=== PATIENT | male | born 1945 | race Caucasian/White ===

== ENCOUNTER 2018-10-12 09:15 | Emergency (ER) | payer MEDICARE, MEDICAID ==
[2018-10-12] MEDS ORDERED: Sodium Chloride 0.9% 1,000 ML IV ONE (09:46)
[2018-10-12] MEDS ORDERED: Sodium Chloride 0.9% 2.5 ML Syringe FLUSH PRN (09:46)
[2018-10-12] MEDS ORDERED: Sodium Chloride 0.9% 10 ML Syringe FLUSH PRN (09:46)
[2018-10-12] MEDS ORDERED: Ketorolac 30 MG/ML SDV IM ONE (09:50)
--- NOTE | 2018-10-12 09:55 | PCM.SN ---
- Free Text/Narrative Note: This is Dr. De Leon dictating addendum note as I am the supervising physician on this case. I agree with the resident's evaluation and my personal interaction with the patient he has no traumatic history and no bony tenderness on palpation but on my examination he seems to have more paraspinal tenderness with palpation bilaterally extending to the right trapezius area. There are no midline step-offs tenderness or defects of the midline spine on my personal evaluation. He is moving upper extremities without tingling numbness or inhibition and he says that he doesn't really have much neck or back pain and he did not take anything [id number] for the pain specifically. He says he has no weakness in his upper extremities and no other systemic complaints. We will proceed to do the cervical spine x-ray and treat his pain symptomatically. We will disposition appropriately pending those test results
--- NOTE | 2018-10-12 10:36 | EDM.PDOC ---
ED HPI GENERAL MEDICAL PROBLEM - General Chief Complaint: Neck Problem Stated Complaint: NECK PAIN Time Seen by Provider: 10/12/18 10:32 - History of Present Illness INITIAL COMMENTS - FREE TEXT/NARRATIVE: 72 y/o male with history of seizures. presenting today with his sister complaining of neck pain. Per family and patient, he started complaining of neck pain this morning. Rates pain 8/10. Worse on his cervical region. No trauma or falls. He lives by himself in town. Denies any headaches, cough, chest pain, dyspnea. No nausea, vomiting. Has not tried any over the counter pain meds. No neurological deficits. neck Pain Score (Numeric/FACES): 8 - Related Data Allergies Allergy/AdvReac Type Severity Reaction Status Date / Time No Known Allergies Allergy Verified 10/12/18 09:30 Home Meds: Home Meds Diclofenac Sodium [Voltaren] 75 mg PO WITHBREAKFAST #30 tab.cr 10/12/18 [Rx] Phenytoin Sodium Extended [Dilantin] 3 cap PO DAILY 10/12/18 [History] Past Medical History Neurological History: Reports: Seizure - Infectious Disease History Infectious Disease History: Reports: None Social & Family History - Family History Family Medical History: Noncontributory - Tobacco Use Smoking Status *Q: Never Smoker - Recreational Drug Use Recreational Drug Use: No ED ROS GENERAL - Review of Systems Review Of Systems: ROS reveals no pertinent complaints other than HPI. ED EXAM, UPPER BACK/NECK PAIN - Physical Exam Exam: See Below General Appearance: Alert, WD/WN, No Apparent Distress Head Exam: Atraumatic, Normocephalic. No: Scalp Lacerations, Scalp Swelling Neck Exam: Other (no swelling or erythema. Tender on cervical region and paraspinal muscles. Full range of motion.) Cardiovascular/Respiratory: Regular Rate, Rhythm, Normal Breath Sounds Course - Vital Signs Text/Narrative:: administered toradol 30 mg IM once. States he feels better after toradol. Cervical xray shows severe degenerative disease. Last Recorded V/S: Last Vital Signs Temp 36.6 C 10/12/18 09:32 Pulse 82 10/12/18 09:32 Resp 18 10/12/18 09:32 BP 110/74 10/12/18 09:32 Pulse Ox 94 L 10/12/18 09:32 - Orders/Labs/Meds Meds: Medications Discontinued Medications Generic Name Dose Route Start Last Admin Trade Name Mayra PRN Reason Stop Dose Admin Sodium Chloride 1,000 mls @ 999 mls/hr 10/12/18 09:46 10/12/18 09:51 Normal Saline IV 10/12/18 10:46 Not Given STAT ONE Ketorolac Tromethamine 30 mg 10/12/18 09:50 10/12/18 09:55 Toradol IM 10/12/18 09:51 30 mg ONETIME ONE Administration Sodium Chloride 10 ml 10/12/18 09:46 Saline Flush FLUSH ASDIRECTED PRN Keep Vein Open Sodium Chloride 2.5 ml 10/12/18 09:46 Saline Flush FLUSH ASDIRECTED PRN Keep Vein Open Departure - Departure Time of Disposition: 10:44 Disposition: Home, Self-Care 01 Clinical Impression: Osteoarthritis cervical spine - Discharge Information Prescriptions: Diclofenac Sodium [Voltaren] 75 mg PO WITHBREAKFAST #30 tab.cr Referrals: PCP,None [Primary Care Provider] - Forms: ED Department Discharge Additional Instructions: The following information is given to patients seen in the emergency department who are being discharged to home. This information is to outline your options for follow-up care. We provide all patients seen in our emergency department with a follow-up referral. The need for follow-up, as well as the timing and circumstances, are variable depending upon the specifics of your emergency department visit. If you don't have a primary care physician on staff, we will provide you with a referral. We always advise you to contact your personal physician following an emergency department visit to inform them of the circumstance of the visit and for follow-up with them and/or the need for any referrals to a consulting specialist. The emergency department will also refer you to a specialist when appropriate. This referral assures that you have the opportunity for followup care with a specialist. All of these measure are taken in an effort to provide you with optimal care, which includes your followup. Under all circumstances we always encourage you to contact your private physician who remains a resource for coordinating your care. When calling for followup care, please make the office aware that this follow-up is from your recent emergency room visit. If for any reason you are refused follow-up, please contact the [facility] emergency department at and ask to speak to the emergency department charge nurse. [facility] Primary care- Internal Medicine and Family [place] [id number] [place] [address] Please follow-up with your provider at [facility] or one of hours for reevaluation and further care next week. Use heat to areas of discomfort in the muscles and only apply ice to the bones. Expect pain to slowly improve over the next few days to one week. Use medications as prescribed to you for pain management. Return to ER as needed and as discussed please take all home medications as previously
--- NOTE | 2018-10-12 10:38 | CR ---
INDICATION: Pain TECHNIQUE: Cervical spine 3 view. COMPARISON: None FINDINGS: Bones: Alignment is normal. No fractures or significant bone lesions. Joints: There is diffuse severe disc space narrowing and spondylosis with small anterior endplate osteophytes. Mild spondylosis is throughout the facet joints. Soft tissues: Unremarkable. IMPRESSION: No acute abnormality. There is severe multilevel degenerative disc spondylosis. Dictated by Jorje Rubin MD @ Oct 12 2018 10:35AM Signed by Dr. Jorje Rubin @ Oct 12 2018 10:37AM
== END 2018-10-12 11:14 | disposition home or self-care (01) ==
LOC: EDBD 09:15 → MERGE 09:15 → MW.ED 09:15
DX: M47.812 Spondylosis without myelopathy or radiculopathy, cervical region (principal)
CPT/HCPCS: 72040; 96372; 99283; J1885

== ENCOUNTER 2020-09-21 19:58 | Emergency (ER) | payer MEDICARE, MEDICAID ==
[2020-09-21] MEDS ORDERED: Sodium Chloride 0.9% 10 ML Syringe FLUSH PRN (20:02)
[2020-09-21] MEDS ORDERED: Sodium Chloride 0.9% 2.5 ML Syringe FLUSH PRN (20:02)
[2020-09-21] MEDS ORDERED: LORazepam 2 MG/ML SDV IVPUSH ONE (20:03)
[2020-09-21] MEDS ORDERED: LORazepam 2 MG/ML SDV ONE (20:05)
--- NOTE | 2020-09-21 20:27 | CR ---
INDICATION: Fall, trauma. TECHNIQUE: X-ray chest, 1 view. COMPARISON: Chest x-ray 10/12/2010. FINDINGS: The heart is normal in size. The pulmonary vasculature is within normal limits. There is mild haziness of the left lung base which could represent a left pleural effusion or atelectasis or combination of both. The lungs are otherwise clear. Negative for pneumothorax. IMPRESSION: Haziness of the left lung base, may represent a pleural effusion, atelectasis or combination of both. Dictated by Stephanie Cao MD @ 09/21/2020 8:26:[address] Stephanie Cao @ Sep 21 2020 8:26PM
--- NOTE | 2020-09-21 20:27 | CR ---
Indication: Injury and pain Technique: Pelvis AP 1 views Comparison: None Findings: Bones: Alignment is normal. No fractures or bone lesions. Joint spaces: Unremarkable. Soft tissues: Unremarkable. Impression: No sign of acute injury. Dictated by Jorje Rubin MD @ 09/21/2020 8:26:[address] Jorje Rubin @ Sep 21 2020 8:26PM
--- NOTE | 2020-09-21 20:30 | EDM.PDOC ---
ED HPI GENERAL MEDICAL PROBLEM - General Chief Complaint: Trauma Stated Complaint: UNCONSCIOUS Time Seen by Provider: 09/21/20 20:02 - History of Present Illness INITIAL COMMENTS - FREE TEXT/NARRATIVE: 74-year-old male with history of seizure presents with altered mental status after a witnessed ground-level fall. Per EMS bystanders saw the patient suddenly point with one of his arms his eyes then rolled back in his head and he fell backwards striking his head. On EMS arrival patient was confused and felt to potentially be postictal. Patient will open eyes to stimuli but will not accurately answer questions on initial assessment. Trauma alert called by nursing for fall with altered mental status. Further history is unavailable at this time due to clinical condition. 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 Other Psychiatric History: pt. unable to communicate. Other Hematologic History: pt. unable to communicate. Other Immunologic History: pt. unable to communicate. - Infectious Disease History Infectious Disease History: Reports: None - Past Surgical History Other HEENT Surgeries/Procedures: pt. unable to communicate. Other Cardiovascular Surgeries/Procedures: pt. unable to communicate. Other Respiratory Surgeries/Procedures: pt. unable to communicate. Other GI Surgeries/Procedures: pt. unable to communicate. Other Male Surgeries/Procedures: pt. unable to communicate. Other Endocrine Surgeries/Procedures: pt. unable to communicate. Other Neurological Surgeries/Procedures: pt. unable to communicate. Other Musculoskeletal Surgeries/Procedures:: pt. unable to communicate. Other Oncologic Surgeries/Procedures: pt. unable to communicate. Social & Family History - Family History Family Medical History: No Pertinent Family History - Tobacco Use Tobacco Use Status *Q: Unknown Ever Used Tobacco Review of Systems - Review of Systems Review Of Systems: Unable To Obtain Reason Not Obtained: Clinical condition ED EXAM, GENERAL - Physical Exam Exam: See Below Free Text/Narrative:: General Appearance: No acute distress, appears comfortable Skin: No rash HEENT: Normocephalic, small amount of blood visible on the posterior scalp source unclear at this time, sclera anicteric, mucous membranes moist, pupils PERRLA bilaterally Neck: Remains in c-collar Chest and Lungs: Bilateral breath sounds, clear to auscultation Cardiovascular: Regular rate and rhythm intact distal perfusion Abdomen: Soft, non-tender Back: No midline tenderness step-off or deformity no ecchymosis noted Musculoskeletal: No edema or tenderness Neurologic: Patient awake but confused GCS is 14 will say occasional words but will not respond to questioning did spontaneously open eyes once from he moves all extremities well #1 Interpretation EKG Date: 09/21/20 Time: 20:30 EKG Interpretation Comments: Sinus rhythm rate of 83 normal axis and intervals minimal ST elevation in V2 and V3 may be somewhat related to baseline wander. There are no findings of acute ischemia no consistent ST elevations no ST depressions. QTC normal at 419 QRS duration normal at 92. Course - Vital Signs Last Recorded V/S: Last Vital Signs Temp 97.7 F 09/21/20 20:09 Pulse 88 09/21/20 20:09 Resp 14 09/21/20 20:09 BP 139/84 09/21/20 20:09 Pulse Ox 95 09/21/20 20:09 - Orders/Labs/Meds Orders: Active Orders 24 hr Category Date Time Status EKG 12 Lead [EKG Documentation Completion] [RC] STAT Care 09/21/20 20:00 Active Head wo Cont [CT] Stat Exams 09/21/20 20:03 Taken Sodium Chloride 0.9% [Saline Flush] Med 09/21/20 20:02 Active 10 ml FLUSH ASDIRECTED PRN Sodium Chloride 0.9% [Saline Flush] Med 09/21/20 20:02 Active 2.5 ml FLUSH ASDIRECTED PRN Saline Lock Insert [OM.PC] Stat Oth 09/21/20 20:02 Ordered Medication Orders Sodium Chloride (Sodium Chloride 0.9% 10 Ml Syringe) 10 ml FLUSH ASDIRECTED PRN PRN Reason: Keep Vein Open Sodium Chloride (Sodium Chloride 0.9% 2.5 Ml Syringe) 2.5 ml FLUSH ASDIRECTED PRN PRN Reason: Keep Vein Open Labs: Laboratory Tests 09/21/20 09/21/20 Range/Units 20:04 20:04 WBC 8.85 (4.0-11.0) K/uL RBC 4.51 (4.50-5.90) M/uL Hgb 13.3 (13.0-17.0) g/dL Hct 39.8 (38.0-50.0) % MCV 88.2 (80.0-98.0) fL MCH 29.5 (27.0-32.0) pg MCHC 33.4 (31.0-37.0) g/dL RDW Std Deviation 44.6 (28.0-62.0) fl RDW Coeff of Raquel 14 (11.0-15.0) % Plt Count 188 (150-400) K/uL MPV 9.40 (7.40-12.00) fL Neut % (Auto) 59.6 (48.0-80.0) % Lymph % (Auto) 30.6 (16.0-40.0) % [place] % (Auto) 8.6 (0.0-15.0) % Eos % (Auto) 0.7 (0.0-7.0) % Baso % (Auto) 0.5 (0.0-1.5) % Neut # (Auto) 5.3 (1.4-5.7) K/uL Lymph # (Auto) 2.7 H (0.6-2.4) K/uL [place] # (Auto) 0.8 (0.0-0.8) K/uL Eos # (Auto) 0.1 (0.0-0.7) K/uL Baso # (Auto) 0.0 (0.0-0.1) K/uL Nucleated RBC % 0.0 /100WBC Nucleated RBCs # 0 K/uL Sodium 144 (136-148) mmol/L Potassium 3.0 L (3.5-5.1) mmol/L Chloride 107 (98-107) mmol/L Carbon Dioxide 28.3 (21.0-32.0) mmol/L BUN 8 (7.0-18.0) mg/dL Creatinine 0.7 L (0.8-1.3) mg/dL Est Cr Clr Drug Dosing TNP Estimated GFR (MDRD) > 60.0 ml/min Glucose 112 H (74-106) mg/dL Calcium 7.5 L (8.5-10.1) mg/dL Magnesium 1.8 (1.8-2.4) mg/dL Total Bilirubin 0.2 (0.2-1.0) mg/dL AST 14 L (15-37) IU/L ALT 14 (14-63) IU/L Alkaline Phosphatase 110 (46-116) U/L Troponin I < 0.050 (0.000-0.056) ng/mL Total Protein 6.7 (6.4-8.2) g/dL Albumin 3.0 L (3.4-5.0) g/dL Globulin 3.7 (2.6-4.0) g/dL Albumin/Globulin Ratio 0.8 L (0.9-1.6) Ethyl Alcohol < 3.0 mg/dL Meds: Medications Generic Name Dose Route Start Last Admin Trade Name Freq PRN Reason Stop Dose Admin Sodium Chloride 10 ml 09/21/20 20:02 Sodium Chloride 0.9% 10 Ml Syringe FLUSH ASDIRECTED PRN Keep Vein Open Sodium Chloride 2.5 ml 09/21/20 20:02 Sodium Chloride 0.9% 2.5 Ml Syringe FLUSH ASDIRECTED PRN Keep Vein Open Discontinued Medications Generic Name Dose Route Start Last Admin Trade Name Freq PRN Reason Stop Dose Admin Haloperidol Lactate 5 mg 09/21/20 20:41 09/21/20 20:43 Haloperidol Lactate 5 Mg/Ml Sdv IM 09/21/20 20:42 5 mg ONETIME ONE Administration Haloperidol Lactate Confirm 09/21/20 20:41 09/21/20 20:44 Haloperidol Lactate 5 Mg/Ml Sdv Administered 09/21/20 20:42 Not Given Dose 5 mg .ROUTE .STK-MED ONE Lorazepam 1 mg 09/21/20 20:03 09/21/20 20:42 Lorazepam 2 Mg/Ml Sdv IVPUSH 09/21/20 20:04 Not Given ONETIME ONE Lorazepam Confirm 09/21/20 20:05 09/21/20 20:15 Lorazepam 2 Mg/Ml Sdv Administered 09/21/20 20:06 2 mg Dose Administration 2 mg .ROUTE .STK-MED ONE Departure - Departure Time of Disposition: 21:18 Disposition: DC/Tfer to Acute Hospital 02 Condition: Good Clinical Impression: Subdural hematoma, Subarachnoid hemorrhage - Discharge Information *PRESCRIPTION DRUG MONITORING PROGRAM REVIEWED*: Not Applicable *COPY OF PRESCRIPTION DRUG MONITORING REPORT IN PATIENT [place]: Not Applicable Forms: ED Department Discharge Sepsis Event Note (ED) - Evaluation Sepsis Screening Result: No Definite Risk - Focused Exam Vital Signs: Vital Signs Temp Pulse Resp BP Pulse Ox 09/21/20 20:09 97.7 F 88 14 139/84 95 - My Orders Last 24 Hours: My Active Orders 09/21/20 20:00 EKG 12 Lead [EKG Documentation Completion] [RC] STAT 09/21/20 20:02 Sodium Chloride 0.9% [Saline Flush] 10 ml FLUSH ASDIRECTED PRN Sodium Chloride 0.9% [Saline Flush] 2.5 ml FLUSH ASDIRECTED PRN Saline Lock Insert [OM.PC] Stat 09/21/20 20:03 Head wo Cont [CT] Stat - Assessment/Plan Last 24 Hours: My Active Orders 09/21/20 20:00 EKG 12 Lead [EKG Documentation Completion] [RC] STAT 09/21/20 20:02 Sodium Chloride 0.9% [Saline Flush] 10 ml FLUSH ASDIRECTED PRN Sodium Chloride 0.9% [Saline Flush] 2.5 ml FLUSH ASDIRECTED PRN Saline Lock Insert [OM.PC] Stat 09/21/20 20:03 Head wo Cont [CT] Stat Assessment:: 74-year-old male presents with ground-level fall. From a traumatic standpoint immediate portable chest and pelvis x-ray were performed and reviewed by myself in the room they are without findings of acute traumatic injury. Patient will proceed to CT for CT imaging of the head and the C-spine. I believe you can clinically clear the spine nonbony abdomen pelvis and other extremities at this point. We will need to reassess the head wound when patient returns from CT. From a medical standpoint syncope is possible seizure is possible. Patient does have some confusion and psychomotor agitation and given the need for immediate imaging 1 mg of IV Ativan will be provided. CBC CMP EKG troponin magnesium have been ordered. Alcohol level as well. Final disposition pending at this time. Any intracranial bleeding should be seen on CT given how soon after the event the CT is being performed. 2041: EKG without acute ischemia QTC is 419. Patient remained significantly agitated and continually trying to get out of bed. Pt given 5mg haldol to allow for emergently needed CT images. Patient is already gotten a total of 2 mg of Ativan. Labs remain pending. 2107: Per verbal report from radiologists pt's CT brain shows an acute subdural hematoma over the left frontal lobe, 3 mm in size. 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 Pt also has a left posterior frontal sulci subarachnoid hemorrhage, pt also with small right posterior frontal SAH. There is no mass effect or midline shift. 2114: Pt discussed with Dr. Gunderson at [facility] and accepted for transfer to [facility]. ETA for [place] [facility] is 15 minutes. Patient is sleeping at this time but this transfer was emergent so we will transfer emergently rather than waiting for consent.
[2020-09-21 20:34] LABS: BLOOD UREA NITROGEN,BUN 8 mg/dL (7.0-18.0); CARBON DIOXIDE,CO2 28.3 mmol/L (21.0-32.0); CHLORIDE,CL 107 mmol/L (98-107); GLUCOSE RANDOM 112 mg/dL (74-106); SODIUM,NA 144 mmol/L (136-148)
[2020-09-21] MEDS ORDERED: Haloperidol Lactate 5 MG/ML SDV ONE (20:41)
[2020-09-21] MEDS ORDERED: Haloperidol Lactate 5 MG/ML SDV IM ONE (20:41)
--- NOTE | 2020-09-21 21:04 | CT ---
Indication: Altered mental status. Technique: CT of the cervical spine without IV contrast. Coronal and sagittal reconstructions. Comparison: None. Findings: No acute fracture or traumatic malalignment of the cervical spine. Degenerative height loss at C3-C6. Normal vertebral body alignment. Spondylotic changes of the cervical spine including hypertrophic spurring, facet arthropathy, and multilevel disc space narrowing. There are multiple small lucent lesions throughout the cervical spine which could be degenerative in nature but are indeterminate. No significant spinal canal stenosis. No prevertebral soft tissue swelling. Mild soft tissue swelling overlying the right occipital bone. Visualized intracranial contents are unremarkable. Opacification of a single right mastoid air cell. Bilateral thyroid nodules measuring up to 1.2 cm in the right thyroid lobe. Mild dependent atelectasis in the lung apices. Impression: 1. No acute fracture or traumatic malalignment of the cervical spine. 2. Spondylotic changes of the cervical spine. 3. Multiple small lucent lesions throughout the cervical spine could be degenerative in nature but are indeterminate. 4. Mild soft tissue swelling overlying the right occipital bone. 5. Bilateral thyroid nodules could be further evaluated with nonemergent thyroid ultrasound. Please note that all CT scans at this facility use dose modulation, iterative reconstruction, and/or weight-based dosing when appropriate to reduce radiation dose to as low as reasonably achievable. Dictated by Bindu Goddard MD @ 09/21/2020 9:03:[address] Bindu Goddard @ Sep 21 2020 9:03PM
--- NOTE | 2020-09-21 21:13 | CT ---
INDICATION: Altered mental status. COMPARISON: None. TECHNIQUE: CT of the head without IV contrast. Coronal and sagittal reconstructions are provided. FINDINGS: There is an acute hyperdense subdural hematoma overlying the left lateral frontal convexity measuring 3 mm in greatest radial diameter (series 203 image 28). There is also a low attenuation chronic subdural hematoma measuring 6 mm at the left vertex (series 203, image 46). There is acute hyperdense subarachnoid hemorrhage within left posterior frontal sulci (For example series 201, image 20). Additional possible small foci of subarachnoid hemorrhage within right frontoparietal sulci (image 24). No significant mass effect. No midline shift. No evidence of acute infarct. Mild generalized cerebral and cerebellar volume loss. Normal caliber ventricular system. Orbits and extraocular muscles are symmetric. The paranasal sinuses and mastoid air cells are clear. No acute fracture. Mild soft tissue swelling overlying the right occipital bone. IMPRESSION: : 1. Acute hyperdense subdural hematoma overlying the left lateral frontal convexity measuring 3 mm in thickness. 2. Low attenuation chronic subdural hematoma at the left vertex measuring 6 mm. 3. Acute hyperdense subarachnoid hemorrhage within left posterior frontal sulci and possibly small foci of subarachnoid hemorrhage within right frontoparietal sulci. 4. No significant mass effect or midline shift. 5. Mild soft tissue swelling overlying the right occipital bone. 6. Findings discussed with Santosh Bruno at 9:11pm on 09/21/2020. Please note that all CT scans at this facility use dose modulation, iterative reconstruction, and/or weight-based dosing when appropriate to reduce radiation dose to as low as reasonably achievable. Dictated by Bindu Goddard MD @ 09/21/2020 8:56:45 PM (Electronically Signed)
== END 2020-09-21 22:16 ==
LOC: EDBD 19:58 → MW.ED 19:58
DX: S06.5X9A Traumatic subdural hemorrhage with loss of consciousness of unspecified duration, initial encounter (principal); S06.6X9A Traumatic subarachnoid hemorrhage with loss of consciousness of unspecified duration, initial encounter; R56.9 Unspecified convulsions; Z79.899 Other long term (current) drug therapy; W18.30XA Fall on same level, unspecified, initial encounter
CPT/HCPCS: 36415; 70450; 71045; 72125; 72170; 80053; 80307; 83735; 84484; 85025; 93005; 96372; 96374; 99285; J1630; J2060; 93010; 99284

== ENCOUNTER 2020-12-12 09:52 | Inpatient (IN) | payer MEDICARE, MEDICAID ==
[2020-12-12] MEDS ORDERED: Sodium Chloride 0.9% 10 ML Syringe FLUSH PRN (13:29)
[2020-12-12] MEDS ORDERED: Sodium Chloride 0.9% 2.5 ML Syringe FLUSH PRN (13:29)
[2020-12-12] MEDS ORDERED: Sodium Chloride 0.9% 1,000 ML IV ONE ×2 (14:10→14:48)
[2020-12-12] MEDS ORDERED: Piperacillin/Tazobactam 3.375 GM in Sodium Chloride 0.9% 50 ML IV ONE (14:31)
[2020-12-12 14:53] LABS: CARBON DIOXIDE,CO2 27.6 mmol/L (21.0-32.0); POTASSIUM,K 3.8 mmol/L (3.5-5.1)
[2020-12-12] MEDS ORDERED: Acetaminophen 500 MG Tab PO ONE (15:38)
--- NOTE | 2020-12-12 15:41 | EDM.PDOC ---
ED HPI GENERAL MEDICAL PROBLEM - General Chief Complaint: Abdominal Pain Stated Complaint: FEVER Time Seen by Provider: 12/12/20 10:06 Source of Information: Reports: Patient, Family History Limitations: Reports: No Limitations - History of Present Illness INITIAL COMMENTS - FREE TEXT/NARRATIVE: HISTORY AND PHYSICAL: History of present illness: Patient is a 74-year-old male, with a known seizure disorder, who presents emergency room today with concern of fever, lower abdominal pain, and "sick of "an indwelling urinary catheter. According to family at bedside, when patient was flown out of here to [facility], he had an indwelling Rodriguez catheter placed. According to family member, this has been in place since his prior emergency room visit and has not been changed or adjusted. Patient and the family member state they do not know why he has the Rodriguez catheter and states that it has never been addressed or touched. Family at bedside states that starting today he began having a fever and complaining of abdominal pain and she felt he was more weak so brought him to the emergency room for further evaluation. Family member states that after his last hospitalization stay at [facility], he was in a long term for quite some time until he was able to transition back to home. Family member states that she has to go in and check on him daily and cook food for him as he is not fully able to care for himself but he does live at home alone. Patient denies any additional symptoms. Patient agrees to family member story. Patient/family member denies chest pain, shortness of breath, or cough. Denies headache, neck stiff ness, change in vision, syncope, or near syncope. Denies nausea, vomiting, diarrhea, constipation, or dysuria. Has not noted any blood in urine or stool. Patient has been eating and drinking appropriately. Review of systems: As per history of present illness and below otherwise all systems reviewed and negative. Past medical history: As per history of present illness and as reviewed below otherwise noncontributory. Surgical history: As per history of present illness and as reviewed below otherwise noncontributory. Social history: See social history for further information Family history: As per history of present illness and as reviewed below otherwise noncontributory. Physical exam: General: Patient is alert, oriented, and in no acute distress. Patient laying comfortably on exam table. Chronically ill-appearing. Patient febrile on exam of 100.7, otherwise vitally stable and reviewed by me. HEENT: Atraumatic, normocephalic, pupils equal and reactive bilaterally, negative for conjunctival pallor or scleral icterus, mucous membranes moist, TMs normal bilaterally, throat clear, neck supple, nontender, trachea midline. No drooling or trismus noted. No meningeal signs. No hot potato voice noted. Lungs: Clear to auscultation, breath sounds equal bilaterally, chest nontender. Heart: S1S2, regular rate and rhythm without overt murmur Abdomen: Soft, nondistended, moderate to severe lower abdominal tenderness on exam. Negative for masses or hepatosplenomegaly. Negative for costovertebral tenderness. Pelvis: Stable nontender. Genitourinary: Indwelling rodriguez catheter in place with brown/yellow thick urine in tubing and draining. Rectal: Deferred. Skin: Intact, warm, dry. No lesions or rashes noted. Extremities: Atraumatic, negative for cords or calf pain. Neurovascular unremarkable. Neuro: Awake, alert, oriented. Cranial nerves II through XII unremarkable. Cerebellum unremarkable. Motor and sensory unremarkable throughout. Exam nonfocal. Notes: Patient is a 74-year-old male, with a history of seizure disorder, who presents emergency room today with family member for concern of fever and abdominal pain x1 day. Patient has had 09/21/2020 according to family member and has not been changed. Upon arrival to the ED, patient is chronically ill-appearing, febrile on exam, with significant lower abdominal tenderness. Patient also noted to have an indwelling Rodriguez the catheter was draining a brown/yellow thick urine in tubing and draining with foul odor. Nursing staff removed indwelling Rodriguez catheter. Will obtain lab work, blood cultures, and lactate as well as obtain abdominal pelvic CT scan with fluid bolus and initiate IV antibiotics. CBC is remarkable for an elevated white blood cell count at 17.18, red blood cells slightly decreased at 4.47, otherwise mild derangements of CBC unremarkable. CMP shows mild hyponatremia at 134. New elevation of creatinine at 1.5 (in past was 0.7) and elevation of BUN at 39 (in past was 8). Urinalysis shows 4+ bacteria with too numerous to count white blood cells, 10-15 red blood cells, positive leukocyte Estrace, negative nitrite, 100 protein, trace ketones. Interpretation: acute urinary tract infection. Given fever and significant leukocytosis and source of infection, concern for sepsis. Sepsis focused exam post fluid bolus completion demonstrates capillary refill less than 2 seconds, radial pulses grossly intact bilaterally, dorsalis pedis and posterior tibial pulses grossly intact bilaterally, heart rate remains within normal limits at approximately 80 bpm, respiratory With remains within normal limits at 18, blood pressure 140s over 90s. Perfusion assessment intact. Covid negative. Abdominal pelvic CT scan shows moderate bilateral hydronephrosis and hydroureter without obstructing stones. Minimal ureteral thickening. Distended urinary bladder with wall thickening pericystic inflammatory change foci of air in the urinary bladder to be correlated with recent instrumentation. Marked heterogeneous enlargement of the prostate gland. Findings may represent bladder outlet obstruction and possible cystitis/urinary tract infection. Right middle lobe consolidation. Basilar patchy opacities could reflect atelectasis versus infiltrate. Patient was given an opportunity to urinate for himself but was unable to succ essfully do this. Due to urinary obstruction on CT scan, Rodriguez catheter was reinserted. However, nursing staff did have difficulties with getting the Rodrigeuz catheter placed. A three-way Rodriguez was finally successfully placed with urine flow noted. Patient does have periodic blood clotting that requires manual break up with fluid flushes, however, between flushes, it does drain easily and appropriately with light pink/yellow urine. I did call and speak to the hospitalist on-call, Dr. Luo, and thoroughly discussed patient's case. Will admit to inpatient to Dr. Luo. Voices understanding and is agreeable to plan of care. Denies any further questions or concerns at this time. Diagnostics: CBC, CMP, UA, blood cultures x2, lactate, abdominal pelvic CT scan with contrast, COVID-19 Therapeutics: Normal saline bolus x2, vancomycin IV, Zosyn, Tylenol, Ibuprofen Impression: Acute pyelonephritis Urinary outlet obstruction Community-acquired pneumonia, right middle lobe Sepsis Plan: Admit to inpatient to Dr. Luo Definitive disposition and diagnosis as appropriate pending reevaluation and review of above. - Related Data Allergies Allergy/AdvReac Type Severity Reaction Status Date / Time No Known Allergies Allergy Verified 12/12/20 13:22 Home Meds: Home Meds Phenytoin Sodium Extended [Dilantin] 100 mg PO DAILY 10/12/18 [History] Diclofenac Sodium [Voltaren] 0 mg PO WITHBREAKFAST 09/21/20 [History] cephALEXin [Cephalexin] 0 mg PO DAILY 09/21/20 [History] Past Medical History Neurological History: Reports: Seizure, Other (See Below) Other Neuro History: epilepsy medical alert necklace noted. Other Psychiatric History: pt. unable to communicate. Other Hematologic History: pt. unable to communicate. Other Immunologic History: pt. unable to communicate. - Infectious Disease History Infectious Disease History: Reports: None - Past Surgical History Other HEENT Surgeries/Procedures: pt. unable to communicate. Other Cardiovascular Surgeries/Procedures: pt. unable to communicate. Other Respiratory Surgeries/Procedures: pt. unable to communicate. Other GI Surgeries/Procedures: pt. unable to communicate. Other Male Surgeries/Procedures: pt. unable to communicate. Other Endocrine Surgeries/Procedures: pt. unable to communicate. Other Neurological Surgeries/Procedures: pt. unable to communicate. Other Musculoskeletal Surgeries/Procedures:: pt. unable to communicate. Other Oncologic Surgeries/Procedures: pt. unable to communicate. Social & Family History - Family History Family Medical History: No Pertinent Family History - Tobacco Use Tobacco Use Status *Q: Never Tobacco User - Recreational Drug Use Recreational Drug Use: No ED ROS GENERAL - Review of Systems Review Of Systems: Comprehensive ROS is negative, except as noted in HPI. ED EXAM, GENERAL - Physical Exam Exam: See Below (see dictation) Course - Vital Signs Last Recorded V/S: Last Vital Signs Temp 103.7 F H 12/12/20 20:28 Pulse 104 H 12/12/20 20:24 Resp 22 H 12/12/20 20:24 BP 115/67 12/12/20 20:24 Pulse Ox 90 L 12/12/20 20:24 - Orders/Labs/Meds Orders: Active Orders 24 hr Category Date Time Status Rodriguez Catheter Insertion [Insert Urinary Catheter] [OM. Care 12/12/20 17:45 Ordered PC] Q24H Urinary Catheter Assessment [RC] ASDIRECTED Care 12/12/20 17:39 Active CULTURE BLOOD [BC] Stat Lab 12/12/20 14:15 Received CULTURE BLOOD [BC] Stat Lab 12/12/20 14:31 Received CULTURE URINE [MREF] Stat Lab 12/12/20 13:50 Received Sodium Chloride 0.9% [Saline Flush] Med 12/12/20 13:29 Active 10 ml FLUSH ASDIRECTED PRN Sodium Chloride 0.9% [Saline Flush] Med 12/12/20 13:29 Active 2.5 ml FLUSH ASDIRECTED PRN Blood Culture x2 Reflex Set [OM.PC] Stat Ot 12/12/20 14:10 Ordered Saline Lock Insert [OM.PC] Stat Ot 12/12/20 13:29 Ordered Medication Orders Sodium Chloride (Sodium Chloride 0.9% 10 Ml Syringe) 10 ml FLUSH ASDIRECTED PRN PRN Reason: Keep Vein Open Last Admin: 12/12/20 14:30 Dose: 10 ml Documented by: LUIS CARLOS Sodium Chloride (Sodium Chloride 0.9% 2.5 Ml Syringe) 2.5 ml FLUSH ASDIRECTED PRN PRN Reason: Keep Vein Open Last Admin: 12/12/20 14:31 Dose: 2.5 ml Documented by: LUIS CARLOS Labs: Laboratory Tests 12/12/20 12/12/20 12/12/20 Range/Units 13:50 14:15 14:15 WBC 17.18 H (4.0-11.0) K/uL RBC 4.47 L (4.50-5.90) M/uL Hgb 13.2 (13.0-17.0) g/dL Hct 38.7 (38.0-50.0) % MCV 86.6 (80.0-98.0) fL MCH 29.5 (27.0-32.0) pg MCHC 34.1 (31.0-37.0) g/dL RDW Std Deviation 44.1 (28.0-62.0) fl RDW Coeff of Raquel 14 (11.0-15.0) % Plt Count 195 (150-400) K/uL MPV 9.40 (7.40-12.00) fL Neut % (Auto) 81.4 H (48.0-80.0) % Lymph % (Auto) 5.6 L (16.0-40.0) % Greene % (Auto) 12.7 (0.0-15.0) % Eos % (Auto) 0.1 (0.0-7.0) % Baso % (Auto) 0.2 (0.0-1.5) % Neut # (Auto) 14.0 H (1.4-5.7) K/uL Lymph # (Auto) 1.0 (0.6-2.4) K/uL Greene # (Auto) 2.2 H (0.0-0.8) K/uL Eos # (Auto) 0.0 (0.0-0.7) K/uL Baso # (Auto) 0.0 (0.0-0.1) K/uL Nucleated RBC % 0.0 /100WBC Nucleated RBCs # 0 K/uL Sodium 134 L (136-148) mmol/L Potassium 3.8 (3.5-5.1) mmol/L Chloride 98 (98-107) mmol/L Carbon Dioxide 27.6 (21.0-32.0) mmol/L BUN 39 H (7.0-18.0) mg/dL Creatinine 1.5 H (0.8-1.3) mg/dL Est Cr Clr Drug Dosing 39.17 mL/min Estimated GFR (MDRD) 45.5 ml/min Glucose 128 H (74-106) mg/dL Lactic Acid (0.4-2.0) mmol/L Calcium 8.2 L (8.5-10.1) mg/dL Total Bilirubin 0.6 (0.2-1.0) mg/dL AST 27 (15-37) IU/L ALT 18 (14-63) IU/L Alkaline Phosphatase 125 H (46-116) U/L Total Protein 7.5 (6.4-8.2) g/dL Albumin 2.8 L (3.4-5.0) g/dL Globulin 4.7 H (2.6-4.0) g/dL Albumin/Globulin Ratio 0.6 L (0.9-1.6) Lipase 215 (73-393) U/L Urine Color YELLOW Urine Appearance CLOUDY Urine pH 7.0 (5.0-8.0) Ur Specific [place] 1.020 (1.001-1.035) Urine Protein 100 H (NEGATIVE) mg/dL Urine Glucose (UA) NEGATIVE (NEGATIVE) mg/dL Urine Ketones TRACE H (NEGATIVE) mg/dL Urine Occult Blood LARGE H (NEGATIVE) Urine Nitrite NEGATIVE (NEGATIVE) Urine Bilirubin SMALL H (NEGATIVE) Urine Urobilinogen 1.0 (<2.0) EU/dL Ur Leukocyte Esterase LARGE H (NEGATIVE) Urine RBC 10-15 (0-2/HPF) Urine WBC TO NUMEROUS TO COUNT H (0-5/HPF) Ur Epithelial Cells RARE (NONE-FEW) Urine Bacteria 4+ H (NEGATIVE) SARS-CoV-2 RNA (ELEN) (NEGATIVE) 12/12/20 12/12/20 Range/Units 14:15 15:34 WBC (4.0-11.0) K/uL RBC (4.50-5.90) M/uL Hgb (13.0-17.0) g/dL Hct (38.0-50.0) % MCV (80.0-98.0) fL MCH (27.0-32.0) pg MCHC (31.0-37.0) g/dL RDW Std Deviation (28.0-62.0) fl RDW Coeff of Raquel (11.0-15.0) % Plt Count (150-400) K/uL MPV (7.40-12.00) fL Neut % (Auto) (48.0-80.0) % Lymph % (Auto) (16.0-40.0) % Greene % (Auto) (0.0-15.0) % Eos % (Auto) (0.0-7.0) % Baso % (Auto) (0.0-1.5) % Neut # (Auto) (1.4-5.7) K/uL Lymph # (Auto) (0.6-2.4) K/uL Greene # (Auto) (0.0-0.8) K/uL Eos # (Auto) (0.0-0.7) K/uL Baso # (Auto) (0.0-0.1) K/uL Nucleated RBC % /100WBC Nucleated RBCs # K/uL Sodium (136-148) mmol/L Potassium (3.5-5.1) mmol/L Chloride (98-107) mmol/L Carbon Dioxide (21.0-32.0) mmol/L BUN (7.0-18.0) mg/dL Creatinine (0.8-1.3) mg/dL Est Cr Clr Drug Dosing mL/min Estimated GFR (MDRD) ml/min Glucose (74-106) mg/dL Lactic Acid 1.2 (0.4-2.0) mmol/L Calcium (8.5-10.1) mg/dL Total Bilirubin (0.2-1.0) mg/dL AST (15-37) IU/L ALT (14-63) IU/L Alkaline Phosphatase (46-116) U/L Total Protein (6.4-8.2) g/dL Albumin (3.4-5.0) g/dL Globulin (2.6-4.0) g/dL Albumin/Globulin Ratio (0.9-1.6) Lipase (73-393) U/L Urine Color Urine Appearance Urine pH (5.0-8.0) Ur Specific [place] (1.001-1.035) Urine Protein (NEGATIVE) mg/dL Urine Glucose (UA) (NEGATIVE) mg/dL Urine Ketones (NEGATIVE) mg/dL Urine Occult Blood (NEGATIVE) Urine Nitrite (NEGATIVE) Urine Bilirubin (NEGATIVE) Urine Urobilinogen (<2.0) EU/dL Ur Leukocyte Esterase (NEGATIVE) Urine RBC (0-2/HPF) Urine WBC (0-5/HPF) Ur Epithelial Cells (NONE-FEW) Urine Bacteria (NEGATIVE) SARS-CoV-2 RNA (ELEN) NEGATIVE (NEGATIVE) Meds: Medications Generic Name Dose Route Start Last Admin Trade Name Freq PRN Reason Stop Dose Admin Sodium Chloride 10 ml 12/12/20 13:29 12/12/20 14:30 Sodium Chloride 0.9% 10 Ml Syringe FLUSH 10 ml ASDIRECTED PRN Administration Keep Vein Open Sodium Chloride 2.5 ml 12/12/20 13:29 12/12/20 14:31 Sodium Chloride 0.9% 2.5 Ml Syringe FLUSH 2.5 ml ASDIRECTED PRN Administration Keep Vein Open Discontinued Medications Generic Name Dose Route Start Last Admin Trade Name Freq PRN Reason Stop Dose Admin Acetaminophen 1,000 mg 12/12/20 15:38 12/12/20 15:44 Acetaminophen 500 Mg Tab PO 12/12/20 15:39 1,000 mg ONETIME ONE Administration Sodium Chloride 1,000 mls @ 999 mls/hr 12/12/20 14:10 12/12/20 14:30 Normal Saline IV 12/12/20 15:10 999 mls/hr STAT ONE Administration Piperacillin Sod/Tazobactam 50 mls @ 100 mls/hr 12/12/20 14:31 12/12/20 14:47 Sod 3.375 gm/ Sodium Chloride IV 12/12/20 15:00 100 mls/hr ONETIME ONE Administration Vancomycin HCl 1 gm/ Sodium 250 mls @ 166 mls/hr 12/12/20 14:48 12/12/20 15:23 Chloride IV 12/12/20 16:18 166 mls/hr ONETIME ONE Administration Sodium Chloride 1,000 mls @ 999 mls/hr 12/12/20 14:48 12/12/20 15:23 Normal Saline IV 12/12/20 15:48 999 mls/hr STAT ONE Administration Ibuprofen 600 mg 12/12/20 20:24 12/12/20 20:28 Ibuprofen 400 Mg Tab PO 12/12/20 20:25 600 mg ONETIME ONE Administration Iopamidol 60 ml 12/12/20 17:07 12/12/20 17:08 Iopamidol 755 Mg/Ml 500 Ml Multipack Bottle IVPUSH 12/12/20 17:08 60 ml ONETIME STA Administration Departure - Departure Time of Disposition: 20:33 Disposition: Admitted As Inpatient 66 Clinical Impression: Acute pyelonephritis, Urinary outflow obstruction Community acquired pneumonia Qualifiers: Laterality: right Lung location: middle lobe of lung Qualified Code(s): J18.9 - Pneumonia, unspecified organism Sepsis Qualifiers: Sepsis type: sepsis due to unspecified organism Sepsis acute organ dysfunction status: unspecified Qualified Code(s): A41.9 - Sepsis, unspecified organism - Discharge Information Sepsis Event Note (ED) - Focused Exam Vital Signs: Vital Signs Temp Temp Pulse Resp BP Pulse Ox 12/12/20 19:11 99 F 101 H 16 133/85 90 L 12/12/20 17:19 133/55 L 89 L 12/12/20 16:50 48 L 118/68 93 L 12/12/20 16:14 99 F 12/12/20 15:44 101.6 F H 12/12/20 15:38 101 H 154/84 H 95 12/12/20 15:23 97 141/81 H 98 12/12/20 15:08 98 145/82 H 99 12/12/20 14:53 98 145/82 H 97 12/12/20 14:38 95 131/79 92 L 12/12/20 13:26 100.7 F H 99 19 146/79 H 97 - My Orders Last 24 Hours: My Active Orders 12/12/20 13:29 Sodium Chloride 0.9% [Saline Flush] 10 ml FLUSH ASDIRECTED PRN Sodium Chloride 0.9% [Saline Flush] 2.5 ml FLUSH ASDIRECTED PRN Saline Lock Insert [OM.PC] Stat 12/12/20 13:50 CULTURE URINE [MREF] Stat 12/12/20 14:10 Blood Culture x2 Reflex Set [OM.PC] Stat 12/12/20 14:15 CULTURE BLOOD [BC] Stat 12/12/20 14:31 CULTURE BLOOD [BC] Stat 12/12/20 17:39 Urinary Catheter Assessment [RC] ASDIRECTED 12/12/20 17:45 Rodriguez Catheter Insertion [Insert Urinary Catheter] [OM.PC] Q24H - Assessment/Plan Last 24 Hours: My Active Orders 12/12/20 13:29 Sodium Chloride 0.9% [Saline Flush] 10 ml FLUSH ASDIRECTED PRN Sodium Chloride 0.9% [Saline Flush] 2.5 ml FLUSH ASDIRECTED PRN Saline Lock Insert [OM.PC] Stat 12/12/20 13:50 CULTURE URINE [MREF] Stat 12/12/20 14:10 Blood Culture x2 Reflex Set [OM.PC] Stat 12/12/20 14:15 CULTURE BLOOD [BC] Stat 12/12/20 14:31 CULTURE BLOOD [BC] Stat 12/12/20 17:39 Urinary Catheter Assessment [RC] ASDIRECTED 12/12/20 17:45 Rodriguez Catheter Insertion [Insert Urinary Catheter] [OM.PC] Q24H
[2020-12-12] MEDS ORDERED: Iopamidol 755 MG/ML 500 ML Multipack Bottle IVPUSH STA (17:07)
--- NOTE | 2020-12-12 17:33 | CT ---
Indication: Abdominal pain and leukocytosis Technique: Contrast-enhanced CT abdomen and pelvis with 60 mL Isovue 370 Comparison: No comparison Findings: Calcified mediastinal hilar lymph nodes heart size is normal. Right middle lobe atelectasis and consolidation basilar patchy atelectasis or infiltrates. No effusion. Liver spleen adrenal glands pancreas unremarkable cholecystectomy biliary dilatation. No abdominal aortic aneurysm. Symmetric enhancement of both kidneys exophytic left renal probable cyst symmetric enhancement of both kidneys too small to characterize low-density lesions in the left kidney. Spleen unremarkable. Bilateral moderate hydronephrosis and hydroureter without obstructing stones. Minimal urothelial thickening. Urinary bladder distended with wall thickening and pericystic inflammatory change foci of air in the urinary bladder. Marked heterogeneous enlargement of the prostate gland Diverticulosis the bowel appears unremarkable. No obstruction appendicolith in the appendix without secondary signs appendicitis. No suspicious bony lesions. Impression: 1. moderate hydronephrosis and hydroureter without obstructing stones. Minimal urothelial thickening. Distended urinary bladder with wall thickening pericystic inflammatory change foci of air in the urinary bladder to be correlate with recent instrumentation. Marked heterogeneous enlargement of the prostate gland. Findings may represent bladder outlet obstruction with possible cystitis /UTI. 2. Right middle lobe atelectasis/consolidation. Basilar patchy opacities could reflect atelectasis or infiltrates. Please note that all CT scans at this facility use dose modulation, iterative reconstruction, and/or weight-based dosing when appropriate to reduce radiation dose to as low as reasonably achievable. Dictated by Trudi Santizo MD @ 12/12/2020 5:30:48 PM (Electronically Signed)
[2020-12-12] MEDS ORDERED: Ibuprofen 400 MG Tab PO ONE (20:24)
--- NOTE | 2020-12-12 23:55 | PCM.HP.2 ---
H&P History of Present Illness - General Date of Service: 12/13/20 Admit Problem/Dx: Admission Diagnosis/Problem Admission Diagnosis/Problem Acute pyelonephritis - History of Present Illness Initial Comments - Free Text/Narative: 74 yo male with pmh of seizure disorder and chronic indwelling rodriguez since last September when he was admitted in [place] after sustaining a SAH and subdural hematoma from a fall. Patient presents with fevers and abdominal pain. He had cloudy urine from his rodriguez. His rodriguez was removed in the ER and replaced when he was unable to urinate. There was some difficulty with replacing and he has passes some blood clots. CT mcclure in the ED reported bilateral hydronephrosis, enlarged prostate, and bladder wall thickening. There was also reported of middle lobe atelectasis/consilidation. Patient reports no cough or shortness of breath. - Related Data Allergies/Adverse Reactions: Allergies Allergy/AdvReac Type Severity Reaction Status Date / Time No Known Allergies Allergy Verified 12/12/20 13:22 Home Medications: Home Meds Phenytoin Sodium Extended [Dilantin] 100 mg PO DAILY 10/12/18 [History] Diclofenac Sodium [Voltaren] 0 mg PO WITHBREAKFAST 09/21/20 [History] cephALEXin [Cephalexin] 0 mg PO DAILY 09/21/20 [History] Past Medical History Neurological History: Reports: Seizure, Other (See Below) Other Neuro History: epilepsy medical alert necklace noted. Other Psychiatric History: pt. unable to communicate. Other Hematologic History: pt. unable to communicate. Other Immunologic History: pt. unable to communicate. - Infectious Disease History Infectious Disease History: Reports: None - Past Surgical History Other HEENT Surgeries/Procedures: pt. unable to communicate. Other Cardiovascular Surgeries/Procedures: pt. unable to communicate. Other Respiratory Surgeries/Procedures: pt. unable to communicate. Other GI Surgeries/Procedures: pt. unable to communicate. Other Male Surgeries/Procedures: pt. unable to communicate. Other Endocrine Surgeries/Procedures: pt. unable to communicate. Other Neurological Surgeries/Procedures: pt. unable to communicate. Other Musculoskeletal Surgeries/Procedures:: pt. unable to communicate. Other Oncologic Surgeries/Procedures: pt. unable to communicate. Social & Family History - Family History Family Medical History: No Pertinent Family History - Tobacco Use Tobacco Use Status *Q: Never Tobacco User - Caffeine Use Caffeine Use: Reports: Coffee - Recreational Drug Use Recreational Drug Use: No H&P Review of Systems - Review of Systems: Review Of Systems: Comprehensive ROS is negative, except as noted in HPI. Exam - Exam Exam: See Below - Vital Signs Vital Signs: Last Vital Signs Temp 37.2 C 12/12/20 22:14 Pulse 96 12/12/20 22:14 Resp 19 12/12/20 22:14 BP 108/63 12/12/20 22:14 Pulse Ox 93 L 12/12/20 22:14 Weight: 71.441 kg - Exam General: Alert, Oriented HEENT: Mucosa Moist & [place] Lungs: Clear to Auscultation, Normal Respiratory Effort Cardiovascular: Regular Rate, Regular Rhythm GI/Abdominal Exam: Normal Bowel Sounds, Soft, Non-Tender, No Distention Extremities: Non-Tender, No Pedal Edema Skin: Warm, Dry, Intact - Patient Data Lab Results Last 24 hrs: Laboratory Results - last 24 hr 12/12/20 12/12/20 12/12/20 Range/Units 13:50 14:15 14:15 WBC 17.18 H (4.0-11.0) K/uL RBC 4.47 L (4.50-5.90) M/uL Hgb 13.2 (13.0-17.0) g/dL Hct 38.7 (38.0-50.0) % MCV 86.6 (80.0-98.0) fL MCH 29.5 (27.0-32.0) pg MCHC 34.1 (31.0-37.0) g/dL RDW Std Deviation 44.1 (28.0-62.0) fl RDW Coeff of Raquel 14 (11.0-15.0) % Plt Count 195 (150-400) K/uL MPV 9.40 (7.40-12.00) fL Neut % (Auto) 81.4 H (48.0-80.0) % Lymph % (Auto) 5.6 L (16.0-40.0) % [place] % (Auto) 12.7 (0.0-15.0) % Eos % (Auto) 0.1 (0.0-7.0) % Baso % (Auto) 0.2 (0.0-1.5) % Neut # (Auto) 14.0 H (1.4-5.7) K/uL Lymph # (Auto) 1.0 (0.6-2.4) K/uL [place] # (Auto) 2.2 H (0.0-0.8) K/uL Eos # (Auto) 0.0 (0.0-0.7) K/uL Baso # (Auto) 0.0 (0.0-0.1) K/uL Nucleated RBC % 0.0 /100WBC Nucleated RBCs # 0 K/uL Sodium 134 L (136-148) mmol/L Potassium 3.8 (3.5-5.1) mmol/L Chloride 98 (98-107) mmol/L Carbon Dioxide 27.6 (21.0-32.0) mmol/L BUN 39 H (7.0-18.0) mg/dL Creatinine 1.5 H (0.8-1.3) mg/dL Est Cr Clr Drug Dosing 39.17 mL/min Estimated GFR (MDRD) 45.5 ml/min Glucose 128 H (74-106) mg/dL Lactic Acid (0.4-2.0) mmol/L Calcium 8.2 L (8.5-10.1) mg/dL Total Bilirubin 0.6 (0.2-1.0) mg/dL AST 27 (15-37) IU/L ALT 18 (14-63) IU/L Alkaline Phosphatase 125 H (46-116) U/L Total Protein 7.5 (6.4-8.2) g/dL Albumin 2.8 L (3.4-5.0) g/dL Globulin 4.7 H (2.6-4.0) g/dL Albumin/Globulin Ratio 0.6 L (0.9-1.6) Lipase 215 (73-393) U/L Urine Color YELLOW Urine Appearance CLOUDY Urine pH 7.0 (5.0-8.0) Ur Specific [place] 1.020 (1.001-1.035) Urine Protein 100 H (NEGATIVE) mg/dL Urine Glucose (UA) NEGATIVE (NEGATIVE) mg/dL Urine Ketones TRACE H (NEGATIVE) mg/dL Urine Occult Blood LARGE H (NEGATIVE) Urine Nitrite NEGATIVE (NEGATIVE) Urine Bilirubin SMALL H (NEGATIVE) Urine Urobilinogen 1.0 (<2.0) EU/dL Ur Leukocyte Esterase LARGE H (NEGATIVE) Urine RBC 10-15 (0-2/HPF) Urine WBC TO NUMEROUS TO COUNT H (0-5/HPF) Ur Epithelial Cells RARE (NONE-FEW) Urine Bacteria 4+ H (NEGATIVE) SARS-CoV-2 RNA (ELEN) (NEGATIVE) 12/12/20 12/12/20 Range/Units 14:15 15:34 WBC (4.0-11.0) K/uL RBC (4.50-5.90) M/uL Hgb (13.0-17.0) g/dL Hct (38.0-50.0) % MCV (80.0-98.0) fL MCH (27.0-32.0) pg MCHC (31.0-37.0) g/dL RDW Std Deviation (28.0-62.0) fl RDW Coeff of Raquel (11.0-15.0) % Plt Count (150-400) K/uL MPV (7.40-12.00) fL Neut % (Auto) (48.0-80.0) % Lymph % (Auto) (16.0-40.0) % [place] % (Auto) (0.0-15.0) % Eos % (Auto) (0.0-7.0) % Baso % (Auto) (0.0-1.5) % Neut # (Auto) (1.4-5.7) K/uL Lymph # (Auto) (0.6-2.4) K/uL [place] # (Auto) (0.0-0.8) K/uL Eos # (Auto) (0.0-0.7) K/uL Baso # (Auto) (0.0-0.1) K/uL Nucleated RBC % /100WBC Nucleated RBCs # K/uL Sodium (136-148) mmol/L Potassium (3.5-5.1) mmol/L Chloride (98-107) mmol/L Carbon Dioxide (21.0-32.0) mmol/L BUN (7.0-18.0) mg/dL Creatinine (0.8-1.3) mg/dL Est Cr Clr Drug Dosing mL/min Estimated GFR (MDRD) ml/min Glucose (74-106) mg/dL Lactic Acid 1.2 (0.4-2.0) mmol/L Calcium (8.5-10.1) mg/dL Total Bilirubin (0.2-1.0) mg/dL AST (15-37) IU/L ALT (14-63) IU/L Alkaline Phosphatase (46-116) U/L Total Protein (6.4-8.2) g/dL Albumin (3.4-5.0) g/dL Globulin (2.6-4.0) g/dL Albumin/Globulin Ratio (0.9-1.6) Lipase (73-393) U/L Urine Color Urine Appearance Urine pH (5.0-8.0) Ur Specific [place] (1.001-1.035) Urine Protein (NEGATIVE) mg/dL Urine Glucose (UA) (NEGATIVE) mg/dL Urine Ketones (NEGATIVE) mg/dL Urine Occult Blood (NEGATIVE) Urine Nitrite (NEGATIVE) Urine Bilirubin (NEGATIVE) Urine Urobilinogen (<2.0) EU/dL Ur Leukocyte Esterase (NEGATIVE) Urine RBC (0-2/HPF) Urine WBC (0-5/HPF) Ur Epithelial Cells (NONE-FEW) Urine Bacteria (NEGATIVE) SARS-CoV-2 RNA (ELEN) NEGATIVE (NEGATIVE) Result Diagrams: 12/13/20 06:49 12/13/20 06:49 Sepsis Event Note - Focused Exam Vital Signs: Vital Signs Temp Temp Temp Pulse Resp BP Pulse Ox 12/12/20 22:14 37.2 C 96 19 108/63 93 L 12/12/20 21:22 99 111/65 90 L 12/12/20 20:28 39.8 C H 12/12/20 20:24 39.8 C H 104 H 22 H 115/67 90 L 12/12/20 19:11 37.2 C 101 H 16 133/85 90 L 12/12/20 17:19 133/55 L 89 L 12/12/20 16:50 48 L 118/68 93 L 12/12/20 16:14 37.2 C 12/12/20 15:44 38.7 C H 12/12/20 15:38 101 H 154/84 H 95 12/12/20 15:23 97 141/81 H 98 12/12/20 15:08 98 145/82 H 99 12/12/20 14:53 98 145/82 H 97 12/12/20 14:38 95 131/79 92 L 12/12/20 13:26 38.2 C H 99 19 146/79 H 97 - Problem List (1) UTI (urinary tract infection) SNOMED Code(s): 96237644 ICD Code: N39.0 - URINARY TRACT INFECTION, SITE NOT SPECIFIED Status: Acute Current Visit: Yes (2) Sepsis SNOMED Code(s): 49344163 ICD Code: A41.9 - SEPSIS, UNSPECIFIED ORGANISM Status: Acute Current Visit: Yes Qualifiers: Sepsis type: sepsis due to unspecified organism Sepsis acute organ dysfunction status: without acute organ dysfunction Qualified Code(s): A41.9 - Sepsis, unspecified organism (3) Urinary outflow obstruction SNOMED Code(s): 924316374 ICD Code: N13.9 - OBSTRUCTIVE AND REFLUX UROPATHY, UNSPECIFIED Status: Acute Current Visit: Yes Problem List Initiated/Reviewed/Updated: Yes Orders Last 24hrs: Active Orders 24 hr Category Date Time Status Admission Status [Patient Status] [ADT] Stat ADT 12/12/20 20:16 Active Rodriguez Catheter Insertion [Insert Urinary Catheter] [OM. Care 12/12/20 17:45 Ordered PC] Q24H Urinary Catheter Assessment [RC] ASDIRECTED Care 12/12/20 17:39 Active Regular Diet [DIET] Diet 12/13/20 Breakfast Active CULTURE BLOOD [BC] Stat Lab 12/12/20 14:15 Received CULTURE BLOOD [BC] Stat Lab 12/12/20 14:31 Received CULTURE URINE [MREF] Stat Lab 12/12/20 13:50 Received Sodium Chloride 0.9% [Saline Flush] Med 12/12/20 13:29 Active 10 ml FLUSH ASDIRECTED PRN Sodium Chloride 0.9% [Saline Flush] Med 12/12/20 13:29 Active 2.5 ml FLUSH ASDIRECTED PRN Blood Culture x2 Reflex Set [OM.PC] Stat Oth 12/12/20 14:10 Ordered Saline Lock Insert [OM.PC] Stat Oth 12/12/20 13:29 Ordered Medication Orders Sodium Chloride (Sodium Chloride 0.9% 10 Ml Syringe) 10 ml FLUSH ASDIRECTED PRN PRN Reason: Keep Vein Open Last Admin: 12/12/20 14:30 Dose: 10 ml Documented by: LUIS CARLOS Sodium Chloride (Sodium Chloride 0.9% 2.5 Ml Syringe) 2.5 ml FLUSH ASDIRECTED PRN PRN Reason: Keep Vein Open Last Admin: 12/12/20 14:31 Dose: 2.5 ml Documented by: LUIS CARLOS Assessment/Plan Comment:: 74 yo male admitted for sepsis from UTI. We will treat with Zosyn. We will also add azithromycin for possible pneumonia but this is less likely.
[2020-12-13] MEDS: Piperacillin/Tazobactam 3.375 GM in Sodium Chloride 0.9% 50 ML IV SCH ×5 (00:46→23:50)
[2020-12-13] MEDS: Azithromycin 250 MG Tab PO SCH ×2 (00:46→23:50)
--- NOTE | 2020-12-13 02:25 | CR ---
HISTORY: Fever, UTI. COMPARISON: CT of the abdomen and pelvis, 12/12/2020. Chest 1 view, 09/21/2020. TECHNIQUE: Chest one-view. FINDINGS: There is atelectasis or consolidation at the left lung base, and vascular crowding/atelectasis at the right lung base. The infiltrate at the right lung base likely corresponds with the region of consolidation and air bronchogram formation in the right middle lobe on the CT from 12/12/2020. There is no pneumothorax. There is no deep sulcus sign. The central airway is normal. The osseous structures are intact. Bowel gas pattern is normal in the upper abdomen. IMPRESSION: Left basilar atelectasis or consolidation. Right middle lobe infiltrate. This is suspicious for pneumonia given the history of fever. Radiographic follow-up is advised to document resolution. Dictated by Jc Klein MD @ 12/13/2020 2:25:06 AM (Electronically Signed)
[2020-12-13 07:51] LABS: CARBON DIOXIDE,CO2 23.3 mmol/L (21.0-32.0); POTASSIUM,K 3.4 mmol/L (3.5-5.1)
[2020-12-13] MEDS: Phenytoin 100 MG Cap.ER PO SCH (09:53)
--- NOTE | 2020-12-13 12:26 | PCM.PN ---
- General Info Date of Service: 12/13/20 - Review of Systems Systems Review Comment:: feeling better, no abdominal pain, no fever - Patient Data Vitals - Most Recent: Last Vital Signs Temp 36.6 C 12/13/20 07:00 Pulse 75 12/13/20 07:00 Resp 16 12/13/20 07:00 BP 99/68 12/13/20 07:00 Pulse Ox 93 L 12/13/20 07:00 Weight - Most Recent: 71.441 kg I&O - Last 24 Hours: Intake & Output 12/12/20 12/13/20 12/13/20 22:59 06:59 14:59 Intake Total 550 Output Total 750 Balance -200 Lab Results Last 24 Hours: Laboratory Results - last 24 hr 12/12/20 12/12/20 12/12/20 Range/Units 13:50 14:15 14:15 WBC 17.18 H (4.0-11.0) K/uL RBC 4.47 L (4.50-5.90) M/uL Hgb 13.2 (13.0-17.0) g/dL Hct 38.7 (38.0-50.0) % MCV 86.6 (80.0-98.0) fL MCH 29.5 (27.0-32.0) pg MCHC 34.1 (31.0-37.0) g/dL RDW Std Deviation 44.1 (28.0-62.0) fl RDW Coeff of Raquel 14 (11.0-15.0) % Plt Count 195 (150-400) K/uL MPV 9.40 (7.40-12.00) fL Neut % (Auto) 81.4 H (48.0-80.0) % Lymph % (Auto) 5.6 L (16.0-40.0) % Ferry % (Auto) 12.7 (0.0-15.0) % Eos % (Auto) 0.1 (0.0-7.0) % Baso % (Auto) 0.2 (0.0-1.5) % Neut # (Auto) 14.0 H (1.4-5.7) K/uL Lymph # (Auto) 1.0 (0.6-2.4) K/uL Ferry # (Auto) 2.2 H (0.0-0.8) K/uL Eos # (Auto) 0.0 (0.0-0.7) K/uL Baso # (Auto) 0.0 (0.0-0.1) K/uL Nucleated RBC % 0.0 /100WBC Nucleated RBCs # 0 K/uL Sodium 134 L (136-148) mmol/L Potassium 3.8 (3.5-5.1) mmol/L Chloride 98 (98-107) mmol/L Carbon Dioxide 27.6 (21.0-32.0) mmol/L BUN 39 H (7.0-18.0) mg/dL Creatinine 1.5 H (0.8-1.3) mg/dL Est Cr Clr Drug Dosing 39.17 mL/min Estimated GFR (MDRD) 45.5 ml/min Glucose 128 H (74-106) mg/dL Lactic Acid (0.4-2.0) mmol/L Calcium 8.2 L (8.5-10.1) mg/dL Total Bilirubin 0.6 (0.2-1.0) mg/dL AST 27 (15-37) IU/L ALT 18 (14-63) IU/L Alkaline Phosphatase 125 H (46-116) U/L Total Protein 7.5 (6.4-8.2) g/dL Albumin 2.8 L (3.4-5.0) g/dL Globulin 4.7 H (2.6-4.0) g/dL Albumin/Globulin Ratio 0.6 L (0.9-1.6) Lipase 215 (73-393) U/L Urine Color YELLOW Urine Appearance CLOUDY Urine pH 7.0 (5.0-8.0) Ur Specific [place] 1.020 (1.001-1.035) Urine Protein 100 H (NEGATIVE) mg/dL Urine Glucose (UA) NEGATIVE (NEGATIVE) mg/dL Urine Ketones TRACE H (NEGATIVE) mg/dL Urine Occult Blood LARGE H (NEGATIVE) Urine Nitrite NEGATIVE (NEGATIVE) Urine Bilirubin SMALL H (NEGATIVE) Urine Urobilinogen 1.0 (<2.0) EU/dL Ur Leukocyte Esterase LARGE H (NEGATIVE) Urine RBC 10-15 (0-2/HPF) Urine WBC TO NUMEROUS TO COUNT H (0-5/HPF) Ur Epithelial Cells RARE (NONE-FEW) Urine Bacteria 4+ H (NEGATIVE) SARS-CoV-2 RNA (ELEN) (NEGATIVE) 12/12/20 12/12/20 12/13/20 Range/Units 14:15 15:34 06:49 WBC 15.46 H (4.0-11.0) K/uL RBC 4.33 L (4.50-5.90) M/uL Hgb 12.5 L (13.0-17.0) g/dL Hct 37.3 L (38.0-50.0) % MCV 86.1 (80.0-98.0) fL MCH 28.9 (27.0-32.0) pg MCHC 33.5 (31.0-37.0) g/dL RDW Std Deviation 44.5 (28.0-62.0) fl RDW Coeff of Raquel 14 (11.0-15.0) % Plt Count 161 (150-400) K/uL MPV 9.80 (7.40-12.00) fL Neut % (Auto) 87.2 H (48.0-80.0) % Lymph % (Auto) 3.8 L (16.0-40.0) % Ferry % (Auto) 8.1 (0.0-15.0) % Eos % (Auto) 0.6 (0.0-7.0) % Baso % (Auto) 0.3 (0.0-1.5) % Neut # (Auto) 13.5 H (1.4-5.7) K/uL Lymph # (Auto) 0.6 (0.6-2.4) K/uL Ferry # (Auto) 1.3 H (0.0-0.8) K/uL Eos # (Auto) 0.1 (0.0-0.7) K/uL Baso # (Auto) 0.0 (0.0-0.1) K/uL Nucleated RBC % 0.0 /100WBC Nucleated RBCs # 0 K/uL Sodium (136-148) mmol/L Potassium (3.5-5.1) mmol/L Chloride (98-107) mmol/L Carbon Dioxide (21.0-32.0) mmol/L BUN (7.0-18.0) mg/dL Creatinine (0.8-1.3) mg/dL Est Cr Clr Drug Dosing mL/min Estimated GFR (MDRD) ml/min Glucose (74-106) mg/dL Lactic Acid 1.2 (0.4-2.0) mmol/L Calcium (8.5-10.1) mg/dL Total Bilirubin (0.2-1.0) mg/dL AST (15-37) IU/L ALT (14-63) IU/L Alkaline Phosphatase (46-116) U/L Total Protein (6.4-8.2) g/dL Albumin (3.4-5.0) g/dL Globulin (2.6-4.0) g/dL Albumin/Globulin Ratio (0.9-1.6) Lipase (73-393) U/L Urine Color Urine Appearance Urine pH (5.0-8.0) Ur Specific [place] (1.001-1.035) Urine Protein (NEGATIVE) mg/dL Urine Glucose (UA) (NEGATIVE) mg/dL Urine Ketones (NEGATIVE) mg/dL Urine Occult Blood (NEGATIVE) Urine Nitrite (NEGATIVE) Urine Bilirubin (NEGATIVE) Urine Urobilinogen (<2.0) EU/dL Ur Leukocyte Esterase (NEGATIVE) Urine RBC (0-2/HPF) Urine WBC (0-5/HPF) Ur Epithelial Cells (NONE-FEW) Urine Bacteria (NEGATIVE) SARS-CoV-2 RNA (ELEN) NEGATIVE (NEGATIVE) 12/13/20 Range/Units 06:49 WBC (4.0-11.0) K/uL RBC (4.50-5.90) M/uL Hgb (13.0-17.0) g/dL Hct (38.0-50.0) % MCV (80.0-98.0) fL MCH (27.0-32.0) pg MCHC (31.0-37.0) g/dL RDW Std Deviation (28.0-62.0) fl RDW Coeff of Raquel (11.0-15.0) % Plt Count (150-400) K/uL MPV (7.40-12.00) fL Neut % (Auto) (48.0-80.0) % Lymph % (Auto) (16.0-40.0) % Ferry % (Auto) (0.0-15.0) % Eos % (Auto) (0.0-7.0) % Baso % (Auto) (0.0-1.5) % Neut # (Auto) (1.4-5.7) K/uL Lymph # (Auto) (0.6-2.4) K/uL Ferry # (Auto) (0.0-0.8) K/uL Eos # (Auto) (0.0-0.7) K/uL Baso # (Auto) (0.0-0.1) K/uL Nucleated RBC % /100WBC Nucleated RBCs # K/uL Sodium 138 (136-148) mmol/L Potassium 3.4 L (3.5-5.1) mmol/L Chloride 104 (98-107) mmol/L Carbon Dioxide 23.3 (21.0-32.0) mmol/L BUN 36 H (7.0-18.0) mg/dL Creatinine 1.4 H (0.8-1.3) mg/dL Est Cr Clr Drug Dosing 41.86 mL/min Estimated GFR (MDRD) 49.3 ml/min Glucose 71 L (74-106) mg/dL Lactic Acid (0.4-2.0) mmol/L Calcium 7.7 L (8.5-10.1) mg/dL Total Bilirubin (0.2-1.0) mg/dL AST (15-37) IU/L ALT (14-63) IU/L Alkaline Phosphatase (46-116) U/L Total Protein (6.4-8.2) g/dL Albumin (3.4-5.0) g/dL Globulin (2.6-4.0) g/dL Albumin/Globulin Ratio (0.9-1.6) Lipase (73-393) U/L Urine Color Urine Appearance Urine pH (5.0-8.0) Ur Specific [place] (1.001-1.035) Urine Protein (NEGATIVE) mg/dL Urine Glucose (UA) (NEGATIVE) mg/dL Urine Ketones (NEGATIVE) mg/dL Urine Occult Blood (NEGATIVE) Urine Nitrite (NEGATIVE) Urine Bilirubin (NEGATIVE) Urine Urobilinogen (<2.0) EU/dL Ur Leukocyte Esterase (NEGATIVE) Urine RBC (0-2/HPF) Urine WBC (0-5/HPF) Ur Epithelial Cells (NONE-FEW) Urine Bacteria (NEGATIVE) SARS-CoV-2 RNA (ELEN) (NEGATIVE) Denilson Results Last 24 Hours: Microbiology 12/12/20 14:15 Aerobic Blood Culture - Final Blood - Venous Med Orders - Current: Current Medications Acetaminophen (Acetaminophen 325 Mg Tab) 650 mg PO Q6H PRN PRN Reason: Pain (Mild 1-3)/fever Azithromycin (Azithromycin 250 Mg Tab) 500 mg PO Q24H [facility] Last Admin: 12/13/20 00:46 Dose: 500 mg Documented by: Piperacillin Sod/Tazobactam (Sod 3.375 gm/ Sodium Chloride) 50 mls @ 100 mls/hr IV Q6H [facility] Last Admin: 12/13/20 12:19 Dose: 100 mls/hr Documented by: Sodium Chloride (Normal Saline) 1,000 mls @ 125 mls/hr IV ASDIRECTED [facility] Phenytoin Sodium (Phenytoin 100 Mg Cap.Er) 100 mg PO DAILY [facility] Last Admin: 12/13/20 09:53 Dose: 100 mg Documented by: Sodium Chloride (Sodium Chloride 0.9% 10 Ml Syringe) 10 ml FLUSH ASDIRECTED PRN PRN Reason: Keep Vein Open Last Admin: 12/12/20 14:30 Dose: 10 ml Documented by: Sodium Chloride (Sodium Chloride 0.9% 2.5 Ml Syringe) 2.5 ml FLUSH ASDIRECTED PRN PRN Reason: Keep Vein Open Last Admin: 12/12/20 14:31 Dose: 2.5 ml Documented by: Discontinued Medications Acetaminophen (Acetaminophen 500 Mg Tab) 1,000 mg PO ONETIME ONE Stop: 12/12/20 15:39 Last Admin: 12/12/20 15:44 Dose: 1,000 mg Documented by: Sodium Chloride (Normal Saline) 1,000 mls @ 999 mls/hr IV STAT ONE Stop: 12/12/20 15:10 Last Admin: 12/12/20 14:30 Dose: 999 mls/hr Documented by: Piperacillin Sod/Tazobactam (Sod 3.375 gm/ Sodium Chloride) 50 mls @ 100 mls/hr IV ONETIME ONE Stop: 12/12/20 15:00 Last Admin: 12/12/20 14:47 Dose: 100 mls/hr Documented by: Vancomycin HCl 1 gm/ Sodium (Chloride) 250 mls @ 166 mls/hr IV ONETIME ONE Stop: 12/12/20 16:18 Last Admin: 12/12/20 15:23 Dose: 166 mls/hr Documented by: Sodium Chloride (Normal Saline) 1,000 mls @ 999 mls/hr IV STAT ONE Stop: 12/12/20 15:48 Last Admin: 12/12/20 15:23 Dose: 999 mls/hr Documented by: Ibuprofen (Ibuprofen 400 Mg Tab) 600 mg PO ONETIME ONE Stop: 12/12/20 20:25 Last Admin: 12/12/20 20:28 Dose: 600 mg Documented by: Iopamidol (Iopamidol 755 Mg/Ml 500 Ml Multipack Bottle) 60 ml IVPUSH ONETIME STA Stop: 12/12/20 17:08 Last Admin: 12/12/20 17:08 Dose: 60 ml Documented by: - Exam General: Alert, Moderate Distress Lungs: Clear to Auscultation, Normal Respiratory Effort Cardiovascular: Regular Rate, Regular Rhythm GI/Abdominal Exam: Normal Bowel Sounds, Soft, Non-Tender Extremities: Non-Tender, No Pedal Edema Skin: Warm, Dry, Intact - Patient Data Lab Results Last 24 hrs: Laboratory Results - last 24 hr 12/12/20 12/12/20 12/12/20 Range/Units 13:50 14:15 14:15 WBC 17.18 H (4.0-11.0) K/uL RBC 4.47 L (4.50-5.90) M/uL Hgb 13.2 (13.0-17.0) g/dL Hct 38.7 (38.0-50.0) % MCV 86.6 (80.0-98.0) fL MCH 29.5 (27.0-32.0) pg MCHC 34.1 (31.0-37.0) g/dL RDW Std Deviation 44.1 (28.0-62.0) fl RDW Coeff of Raquel 14 (11.0-15.0) % Plt Count 195 (150-400) K/uL MPV 9.40 (7.40-12.00) fL Neut % (Auto) 81.4 H (48.0-80.0) % Lymph % (Auto) 5.6 L (16.0-40.0) % [place]erry % (Auto) 12.7 (0.0-15.0) % Eos % (Auto) 0.1 (0.0-7.0) % Baso % (Auto) 0.2 (0.0-1.5) % Neut # (Auto) 14.0 H (1.4-5.7) K/uL Lymph # (Auto) 1.0 (0.6-2.4) K/uL [place]erry # (Auto) 2.2 H (0.0-0.8) K/uL Eos # (Auto) 0.0 (0.0-0.7) K/uL Baso # (Auto) 0.0 (0.0-0.1) K/uL Nucleated RBC % 0.0 /100WBC Nucleated RBCs # 0 K/uL Sodium 134 L (136-148) mmol/L Potassium 3.8 (3.5-5.1) mmol/L Chloride 98 (98-107) mmol/L Carbon Dioxide 27.6 (21.0-32.0) mmol/L BUN 39 H (7.0-18.0) mg/dL Creatinine 1.5 H (0.8-1.3) mg/dL Est Cr Clr Drug Dosing 39.17 mL/min Estimated GFR (MDRD) 45.5 ml/min Glucose 128 H (74-106) mg/dL Lactic Acid (0.4-2.0) mmol/L Calcium 8.2 L (8.5-10.1) mg/dL Total Bilirubin 0.6 (0.2-1.0) mg/dL AST 27 (15-37) IU/L ALT 18 (14-63) IU/L Alkaline Phosphatase 125 H (46-116) U/L Total Protein 7.5 (6.4-8.2) g/dL Albumin 2.8 L (3.4-5.0) g/dL Globulin 4.7 H (2.6-4.0) g/dL Albumin/Globulin Ratio 0.6 L (0.9-1.6) Lipase 215 (73-393) U/L Urine Color YELLOW Urine Appearance CLOUDY Urine pH 7.0 (5.0-8.0) Ur Specific [place] 1.020 (1.001-1.035) Urine Protein 100 H (NEGATIVE) mg/dL Urine Glucose (UA) NEGATIVE (NEGATIVE) mg/dL Urine Ketones TRACE H (NEGATIVE) mg/dL Urine Occult Blood LARGE H (NEGATIVE) Urine Nitrite NEGATIVE (NEGATIVE) Urine Bilirubin SMALL H (NEGATIVE) Urine Urobilinogen 1.0 (<2.0) EU/dL Ur Leukocyte Esterase LARGE H (NEGATIVE) Urine RBC 10-15 (0-2/HPF) Urine WBC TO NUMEROUS TO COUNT H (0-5/HPF) Ur Epithelial Cells RARE (NONE-FEW) Urine Bacteria 4+ H (NEGATIVE) SARS-CoV-2 RNA (ELEN) (NEGATIVE) 12/12/20 12/12/20 12/13/20 Range/Units 14:15 15:34 06:49 WBC 15.46 H (4.0-11.0) K/uL RBC 4.33 L (4.50-5.90) M/uL Hgb 12.5 L (13.0-17.0) g/dL Hct 37.3 L (38.0-50.0) % MCV 86.1 (80.0-98.0) fL MCH 28.9 (27.0-32.0) pg MCHC 33.5 (31.0-37.0) g/dL RDW Std Deviation 44.5 (28.0-62.0) fl RDW Coeff of Raquel 14 (11.0-15.0) % Plt Count 161 (150-400) K/uL MPV 9.80 (7.40-12.00) fL Neut % (Auto) 87.2 H (48.0-80.0) % Lymph % (Auto) 3.8 L (16.0-40.0) % [place]erry % (Auto) 8.1 (0.0-15.0) % Eos % (Auto) 0.6 (0.0-7.0) % Baso % (Auto) 0.3 (0.0-1.5) % Neut # (Auto) 13.5 H (1.4-5.7) K/uL Lymph # (Auto) 0.6 (0.6-2.4) K/uL [place] # (Auto) 1.3 H (0.0-0.8) K/uL Eos # (Auto) 0.1 (0.0-0.7) K/uL Baso # (Auto) 0.0 (0.0-0.1) K/uL Nucleated RBC % 0.0 /100WBC Nucleated RBCs # 0 K/uL Sodium (136-148) mmol/L Potassium (3.5-5.1) mmol/L Chloride (98-107) mmol/L Carbon Dioxide (21.0-32.0) mmol/L BUN (7.0-18.0) mg/dL Creatinine (0.8-1.3) mg/dL Est Cr Clr Drug Dosing mL/min Estimated GFR (MDRD) ml/min Glucose (74-106) mg/dL Lactic Acid 1.2 (0.4-2.0) mmol/L Calcium (8.5-10.1) mg/dL Total Bilirubin (0.2-1.0) mg/dL AST (15-37) IU/L ALT (14-63) IU/L Alkaline Phosphatase (46-116) U/L Total Protein (6.4-8.2) g/dL Albumin (3.4-5.0) g/dL Globulin (2.6-4.0) g/dL Albumin/Globulin Ratio (0.9-1.6) Lipase (73-393) U/L Urine Color Urine Appearance Urine pH (5.0-8.0) Ur Specific [place] (1.001-1.035) Urine Protein (NEGATIVE) mg/dL Urine Glucose (UA) (NEGATIVE) mg/dL Urine Ketones (NEGATIVE) mg/dL Urine Occult Blood (NEGATIVE) Urine Nitrite (NEGATIVE) Urine Bilirubin (NEGATIVE) Urine Urobilinogen (<2.0) EU/dL Ur Leukocyte Esterase (NEGATIVE) Urine RBC (0-2/HPF) Urine WBC (0-5/HPF) Ur Epithelial Cells (NONE-FEW) Urine Bacteria (NEGATIVE) SARS-CoV-2 RNA (ELEN) NEGATIVE (NEGATIVE) 12/13/20 Range/Units 06:49 WBC (4.0-11.0) K/uL RBC (4.50-5.90) M/uL Hgb (13.0-17.0) g/dL Hct (38.0-50.0) % MCV (80.0-98.0) fL MCH (27.0-32.0) pg MCHC (31.0-37.0) g/dL RDW Std Deviation (28.0-62.0) fl RDW Coeff of Raquel (11.0-15.0) % Plt Count (150-400) K/uL MPV (7.40-12.00) fL Neut % (Auto) (48.0-80.0) % Lymph % (Auto) (16.0-40.0) % [place]erry % (Auto) (0.0-15.0) % Eos % (Auto) (0.0-7.0) % Baso % (Auto) (0.0-1.5) % Neut # (Auto) (1.4-5.7) K/uL Lymph # (Auto) (0.6-2.4) K/uL Ferry # (Auto) (0.0-0.8) K/uL Eos # (Auto) (0.0-0.7) K/uL Baso # (Auto) (0.0-0.1) K/uL Nucleated RBC % /100WBC Nucleated RBCs # K/uL Sodium 138 (136-148) mmol/L Potassium 3.4 L (3.5-5.1) mmol/L Chloride 104 (98-107) mmol/L Carbon Dioxide 23.3 (21.0-32.0) mmol/L BUN 36 H (7.0-18.0) mg/dL Creatinine 1.4 H (0.8-1.3) mg/dL Est Cr Clr Drug Dosing 41.86 mL/min Estimated GFR (MDRD) 49.3 ml/min Glucose 71 L (74-106) mg/dL Lactic Acid (0.4-2.0) mmol/L Calcium 7.7 L (8.5-10.1) mg/dL Total Bilirubin (0.2-1.0) mg/dL AST (15-37) IU/L ALT (14-63) IU/L Alkaline Phosphatase (46-116) U/L Total Protein (6.4-8.2) g/dL Albumin (3.4-5.0) g/dL Globulin (2.6-4.0) g/dL Albumin/Globulin Ratio (0.9-1.6) Lipase (73-393) U/L Urine Color Urine Appearance Urine pH (5.0-8.0) Ur Specific [place] (1.001-1.035) Urine Protein (NEGATIVE) mg/dL Urine Glucose (UA) (NEGATIVE) mg/dL Urine Ketones (NEGATIVE) mg/dL Urine Occult Blood (NEGATIVE) Urine Nitrite (NEGATIVE) Urine Bilirubin (NEGATIVE) Urine Urobilinogen (<2.0) EU/dL Ur Leukocyte Esterase (NEGATIVE) Urine RBC (0-2/HPF) Urine WBC (0-5/HPF) Ur Epithelial Cells (NONE-FEW) Urine Bacteria (NEGATIVE) SARS-CoV-2 RNA (ELEN) (NEGATIVE) Result Diagrams: 12/13/20 06:49 12/13/20 06:49 Denilson Results Last 24 hrs: Microbiology 12/12/20 14:15 Aerobic Blood Culture - Final Blood - Venous Sepsis Event Note - Evaluation Sepsis Screening Result: Possible Sepsis Risk - Focused Exam Vital Signs: Vital Signs Temp Pulse Resp BP Pulse Ox 12/13/20 07:00 36.6 C 75 16 99/68 93 L 12/13/20 03:50 36.2 C 98 20 100/62 93 L - Problem List & Annotations (1) UTI (urinary tract infection) SNOMED Code(s): 14133135 Code(s): N39.0 - URINARY TRACT INFECTION, SITE NOT SPECIFIED Status: Acute Current Visit: Yes (2) Sepsis SNOMED Code(s): 70831119 Code(s): A41.9 - SEPSIS, UNSPECIFIED ORGANISM Status: Acute Current Visi t: Yes Qualifiers: Sepsis type: sepsis due to unspecified organism Sepsis acute organ dysfunction status: without acute organ dysfunction Qualified Code(s): A41.9 - Sepsis, unspecified organism (3) Urinary outflow obstruction SNOMED Code(s): 988156132 Code(s): N13.9 - OBSTRUCTIVE AND REFLUX UROPATHY, UNSPECIFIED Status: Acute Current Visit: Yes - Problem List Review Problem List Initiated/Reviewed/Updated: Yes - My Orders Last 24 Hours: My Active Orders 12/13/20 00:30 Azithromycin [Zithromax] 500 mg PO Q24H Piperacillin/Tazobactam [Piperacil-Tazobact] 3.375 gm Sodium Chloride 0.9% [N ormal Saline] 50 ml IV Q6H 12/13/20 00:34 Oxygen Therapy [RC] PRN Up ad Snow [RC] ASDIRECTED VTE/DVT Education [RC] PER UNIT ROUTINE Vital Signs [RC] Q4H Acetaminophen [TylenoL] 650 mg PO Q6H PRN Anticoagulation Contraindications VTE [AST] Per Unit Routine Sequential Compression Device [OM.PC] Per Unit Routine Resuscitation Status Routine 12/13/20 00:35 Antiembolic Devices [RC] PER UNIT ROUTINE 12/13/20 00:39 Intake and Output Strict [RC] ASDIRECTED 12/13/20 Breakfast Regular Diet [DIET] 12/13/20 09:00 Phenytoin 100 mg PO DAILY 12/13/20 12:23 Accu Check [Blood Glucose Check, Bedside] [RC] ONETIME Accu Check [Blood Glucose Check, Bedside] [RC] TIDMEALS 12/13/20 12:30 Sodium Chloride 0.9% @ 125 MLS/HR (1,000ml) Sodium Chloride 0.9% [Normal Saline] 1,000 ml IV ASDIRECTED - Plan Plan:: 74 yo male admitted for sepsis from UTI. UTI with gram negative bony bacteremia: continue zosyn, cultures pending, azithromycin added due to consolation seen on CT scan ANNMARIE: continue IV fluids Urinary obstruction: Hernandez in place
[2020-12-13] MEDS: Sodium Chloride 0.9% 1,000 ML IV SCH (14:16)
[2020-12-13] MEDS: Acetaminophen 325 MG Tab PO PRN (22:07)
[2020-12-14] MEDS: Sodium Chloride 0.9% 1,000 ML IV SCH ×3 (00:38→17:55)
[2020-12-14] MEDS: Piperacillin/Tazobactam 3.375 GM in Sodium Chloride 0.9% 50 ML IV SCH ×4 (06:24→23:52)
--- NOTE | 2020-12-14 07:56 | PCM.PN ---
- General Info Date of Service: 12/14/20 - Review of Systems Systems Review Comment:: feeling better, wanting to go home - Patient Data Vitals - Most Recent: Last Vital Signs Temp 36.2 C 12/14/20 04:00 Pulse 79 12/14/20 04:00 Resp 18 12/14/20 04:00 BP 119/70 12/14/20 04:00 Pulse Ox 95 12/14/20 04:00 Weight - Most Recent: 71.441 kg I&O - Last 24 Hours: Intake & Output 12/13/20 12/14/20 12/14/20 22:59 06:59 14:59 Intake Total 740 650 Output Total 500 750 Balance 240 -100 Lab Results Last 24 Hours: Laboratory Results - last 24 hr 12/13/20 12/14/20 Range/Units 14:59 06:22 POC Glucose 112 H 103 H (70-99) mg/dL Denilson Results Last 24 Hours: Microbiology 12/12/20 14:15 Blood Culture Identification Panel - Preliminary Blood Klebsiella Pneumoniae 12/12/20 14:15 Bacteria Detection (PCR) - Final Blood 12/12/20 14:31 Aerobic Blood Culture - Preliminary Blood - Venous - Lab Draw NO GROWTH AFTER 1 DAY Anaerobic Blood Culture - Preliminary NO GROWTH AFTER 1 DAY 12/12/20 14:15 Aerobic Blood Culture - Final Blood - Venous Anaerobic Blood Culture - Preliminary NO GROWTH AFTER 1 DAY Med Orders - Current: Current Medications Acetaminophen (Acetaminophen 325 Mg Tab) 650 mg PO Q6H PRN PRN Reason: Pain (Mild 1-3)/fever Last Admin: 12/13/20 22:07 Dose: 650 mg Documented by: Azithromycin (Azithromycin 250 Mg Tab) 500 mg PO Q24H [facility] Last Admin: 12/13/20 23:50 Dose: 500 mg Documented by: Piperacillin Sod/Tazobactam (Sod 3.375 gm/ Sodium Chloride) 50 mls @ 100 mls/hr IV Q6H [facility] Last Admin: 12/14/20 06:24 Dose: 100 mls/hr Documented by: Sodium Chloride (Normal Saline) 1,000 mls @ 125 mls/hr IV ASDIRECTED [facility] Last Admin: 12/14/20 00:38 Dose: 125 mls/hr Documented by: Phenytoin Sodium (Phenytoin 100 Mg Cap.Er) 100 mg PO DAILY [facility] Last Admin: 12/13/20 09:53 Dose: 100 mg Documented by: Sodium Chloride (Sodium Chloride 0.9% 10 Ml Syringe) 10 ml FLUSH ASDIRECTED PRN PRN Reason: Keep Vein Open Last Admin: 12/12/20 14:30 Dose: 10 ml Documented by: Sodium Chloride (Sodium Chloride 0.9% 2.5 Ml Syringe) 2.5 ml FLUSH ASDIRECTED PRN PRN Reason: Keep Vein Open Last Admin: 12/12/20 14:31 Dose: 2.5 ml Documented by: Discontinued Medications Acetaminophen (Acetaminophen 500 Mg Tab) 1,000 mg PO ONETIME ONE Stop: 12/12/20 15:39 Last Admin: 12/12/20 15:44 Dose: 1,000 mg Documented by: Sodium Chloride (Normal Saline) 1,000 mls @ 999 mls/hr IV STAT ONE Stop: 12/12/20 15:10 Last Admin: 12/12/20 14:30 Dose: 999 mls/hr Documented by: Piperacillin Sod/Tazobactam (Sod 3.375 gm/ Sodium Chloride) 50 mls @ 100 mls/hr IV ONETIME ONE Stop: 12/12/20 15:00 Last Admin: 12/12/20 14:47 Dose: 100 mls/hr Documented by: Vancomycin HCl 1 gm/ Sodium (Chloride) 250 mls @ 166 mls/hr IV ONETIME ONE Stop: 12/12/20 16:18 Last Admin: 12/12/20 15:23 Dose: 166 mls/hr Documented by: Sodium Chloride (Normal Saline) 1,000 mls @ 999 mls/hr IV STAT ONE Stop: 12/12/20 15:48 Last Admin: 12/12/20 15:23 Dose: 999 mls/hr Documented by: Ibuprofen (Ibuprofen 400 Mg Tab) 600 mg PO ONETIME ONE Stop: 12/12/20 20:25 Last Admin: 12/12/20 20:28 Dose: 600 mg Documented by: Iopamidol (Iopamidol 755 Mg/Ml 500 Ml Multipack Bottle) 60 ml IVPUSH ONETIME STA Stop: 12/12/20 17:08 Last Admin: 12/12/20 17:08 Dose: 60 ml Documented by: - Exam General: Alert, Oriented Lungs: Clear to Auscultation, Normal Respiratory Effort Cardiovascular: Regular Rate, Regular Rhythm GI/Abdominal Exam: Normal Bowel Sounds, Soft, Non-Tender Extremities: Non-Tender, No Pedal Edema Skin: Warm, Dry, Intact Neurological: No New Focal Deficit - Patient Data Lab Results Last 24 hrs: Laboratory Results - last 24 hr 12/13/20 12/14/20 Range/Units 14:59 06:22 POC Glucose 112 H 103 H (70-99) mg/dL Result Diagrams: 12/13/20 06:49 12/13/20 06:49 Denilson Results Last 24 hrs: Microbiology 12/12/20 14:15 Blood Culture Identification Panel - Preliminary Blood Klebsiella Pneumoniae 12/12/20 14:15 Bacteria Detection (PCR) - Final Blood 12/12/20 14:31 Aerobic Blood Culture - Preliminary Blood - Venous - Lab Draw NO GROWTH AFTER 1 DAY Anaerobic Blood Culture - Preliminary NO GROWTH AFTER 1 DAY 12/12/20 14:15 Aerobic Blood Culture - Final Blood - Venous Anaerobic Blood Culture - Preliminary NO GROWTH AFTER 1 DAY Sepsis Event Note - Evaluation Sepsis Screening Result: Possible Sepsis Risk - Focused Exam Vital Signs: Vital Signs Temp Pulse Resp BP Pulse Ox 12/14/20 04:00 36.2 C 79 18 119/70 95 12/13/20 23:55 36.8 C 86 16 113/68 93 L 12/13/20 20:00 37.9 C 88 14 118/85 93 L - Problem List & Annotations (1) UTI (urinary tract infection) SNOMED Code(s): 83179115 Code(s): N39.0 - URINARY TRACT INFECTION, SITE NOT SPECIFIED Status: Acute Current Visit: Yes (2) Sepsis SNOMED Code(s): 20769057 Code(s): A41.9 - SEPSIS, UNSPECIFIED ORGANISM Status: Acute Current Visit: Yes Qualifiers: Sepsis type: sepsis due to unspecified organism Sepsis acute organ dysfunction status: without acute organ dysfunction Qualified Code(s): A41.9 - Sepsis, unspecified organism (3) Urinary outflow obstruction SNOMED Code(s): 828020113 Code(s): N13.9 - OBSTRUCTIVE AND REFLUX UROPATHY, UNSPECIFIED Status: Acute Current Visit: Yes - Problem List Review Problem List Initiated/Reviewed/Updated: Yes - My Orders Last 24 Hours: My Active Orders 12/13/20 09:00 Phenytoin 100 mg PO DAILY 12/13/20 12:30 Sodium Chloride 0.9% [Normal Saline] 1,000 ml IV ASDIRECTED 12/15/20 05:11 BASIC METABOLIC PANEL,BMP [CHEM] AM CBC WITH AUTO DIFF [HEME] AM - Plan Plan:: 74 yo male admitted for sepsis from UTI. UTI with gram negative bony bacteremia: continue Zosyn, cultures pending, azithromycin added due to consolation seen on CT scan ANNMARIE: continue IV fluids, morning labs pending Urinary obstruction: Hernandez in place
[2020-12-14] MEDS: Phenytoin 100 MG Cap.ER PO SCH (08:11)
[2020-12-14] MEDS: Azithromycin 250 MG Tab PO SCH (23:52)
[2020-12-15] MEDS: Acetaminophen 325 MG Tab PO PRN (02:34)
[2020-12-15] MEDS: Sodium Chloride 0.9% 1,000 ML IV SCH (03:48)
[2020-12-15] MEDS: Piperacillin/Tazobactam 3.375 GM in Sodium Chloride 0.9% 50 ML IV SCH (06:21)
[2020-12-15 06:29] LABS: BLOOD UREA NITROGEN,BUN 12 mg/dL (7.0-18.0); CHLORIDE,CL 108 mmol/L (98-107); GLUCOSE RANDOM 118 mg/dL (74-106); POTASSIUM,K 2.9 mmol/L (3.5-5.1); SODIUM,NA 140 mmol/L (136-148)
[2020-12-15] MEDS: Phenytoin 100 MG Cap.ER PO SCH (08:06)
[2020-12-15] MEDS ORDERED: Potassium Chloride 20 MEQ Tab.ER PO ONE ×2 (08:25→14:00)
[2020-12-15] MEDS ORDERED: Sodium Chloride 0.9% with KCl 1,000 ML IV ONE (08:26)
[2020-12-15] MEDS: Levofloxacin 750 MG Tab PO SCH (11:14)
--- NOTE | 2020-12-15 12:40 | PCM.PN ---
- General Info Date of Service: 12/15/20 Admission Dx/Problem (Free Text): Admission Diagnosis/Problem Admission Diagnosis/Problem Acute pyelonephritis Subjective Update: Reports he is feeling well today. Has been up with physical therapy who reports he is at baseline and doing well with balance and ambulating with front wheeled walker. Patient denies any chest pain shortness of breath or abdominal pain. He is eating and drinking well. But he does report significant amount of diarrhea had about 5 overnight. Reports they are very loose not necessarily watery. No fevers or chills. Reports that he would not want go to a nursing facility or rehabilitation center at this time. Patient reports he would be able to care for his Rodriguez catheter at home with some education. Patient is agreeable to home health when discharge is ready. Functional Status: Reports: Pain Controlled, Tolerating Diet, Ambulating - Review of Systems General: Reports: No Symptoms. Denies: Weakness, Fatigue, Malaise HEENT: Reports: No Symptoms. Denies: Headaches, Sinus Congestion, Visual Changes Pulmonary: Reports: No Symptoms. Denies: Shortness of Breath Cardiovascular: Reports: No Symptoms. Denies: Chest Pain Gastrointestinal: Reports: Diarrhea. Denies: Abdominal Pain, Nausea, Vomiting Genitourinary: Reports: No Symptoms. Denies: Dysuria, Frequency Musculoskeletal: Reports: No Symptoms Skin: Reports: No Symptoms Neurological: Reports: No Symptoms Psychiatric: Reports: No Symptoms - Patient Data Vitals - Most Recent: Last Vital Signs Temp 97.4 F 12/15/20 07:00 Pulse 99 12/15/20 07:00 Resp 16 12/15/20 07:00 BP 136/87 12/15/20 07:00 Pulse Ox 94 L 12/15/20 07:00 Weight - Most Recent: 71.441 kg I&O - Last 24 Hours: Intake & Output 12/14/20 12/15/20 12/15/20 22:59 06:59 14:59 Intake Total 720 2079 Output Total 800 1500 Balance -80 579 Lab Results Last 24 Hours: Laboratory Results - last 24 hr 12/15/20 12/15/20 12/15/20 Range/Units 04:50 04:50 04:50 WBC 8.23 (4.0-11.0) K/uL RBC 4.02 L (4.50-5.90) M/uL Hgb 11.6 L (13.0-17.0) g/dL Hct 34.3 L (38.0-50.0) % MCV 85.3 (80.0-98.0) fL MCH 28.9 (27.0-32.0) pg MCHC 33.8 (31.0-37.0) g/dL RDW Std Deviation 43.7 (28.0-62.0) fl RDW Coeff of Raquel 14 (11.0-15.0) % Plt Count 200 (150-400) K/uL MPV 9.40 (7.40-12.00) fL Neut % (Auto) 71.3 (48.0-80.0) % Lymph % (Auto) 14.0 L (16.0-40.0) % [place] % (Auto) 12.8 (0.0-15.0) % Eos % (Auto) 1.7 (0.0-7.0) % Baso % (Auto) 0.2 (0.0-1.5) % Neut # (Auto) 5.9 H (1.4-5.7) K/uL Lymph # (Auto) 1.2 (0.6-2.4) K/uL [place] # (Auto) 1.1 H (0.0-0.8) K/uL Eos # (Auto) 0.1 (0.0-0.7) K/uL Baso # (Auto) 0.0 (0.0-0.1) K/uL Nucleated RBC % 0.0 /100WBC Nucleated RBCs # 0 K/uL Sodium 140 (136-148) mmol/L Potassium 2.9 L (3.5-5.1) mmol/L Chloride 108 H (98-107) mmol/L Carbon Dioxide 25.0 (21.0-32.0) mmol/L BUN 12 (7.0-18.0) mg/dL Creatinine 1.0 (0.8-1.3) mg/dL Est Cr Clr Drug Dosing 58.61 mL/min Estimated GFR (MDRD) > 60.0 ml/min Glucose 118 H (74-106) mg/dL Calcium 7.4 L (8.5-10.1) mg/dL Magnesium 1.9 (1.8-2.4) mg/dL Denilson Results Last 24 Hours: Microbiology 12/12/20 14:15 Blood Culture Identification Panel - Preliminary Blood Klebsiella Pneumoniae 12/12/20 13:50 Urine Culture - Final Urine Klebsiella Pneumoniae 12/12/20 14:31 Aerobic Blood Culture - Preliminary Blood - Venous - Lab Draw NO GROWTH AFTER 2 DAYS Anaerobic Blood Culture - Preliminary NO GROWTH AFTER 2 DAYS 12/12/20 14:15 Aerobic Blood Culture - Final Blood - Venous Anaerobic Blood Culture - Preliminary NO GROWTH AFTER 2 DAYS Med Orders - Current: Current Medications Acetaminophen (Acetaminophen 325 Mg Tab) 650 mg PO Q6H PRN PRN Reason: Pain (Mild 1-3)/fever Last Admin: 12/15/20 02:34 Dose: 650 mg Documented by: Sodium Chloride (Normal Saline) 1,000 mls @ 125 mls/hr IV ASDIRECTED [facility] Last Admin: 12/15/20 03:48 Dose: 125 mls/hr Documented by: Potassium Chloride/Sodium Chloride (Normal Saline With 40 Meq Kcl) 1,000 mls @ 125 mls/hr IV ONETIME ONE Stop: 12/15/20 16:25 Last Admin: 12/15/20 08:52 Dose: 125 mls/hr Documented by: Levofloxacin (Levofloxacin 750 Mg Tab) 750 mg PO Q24H [facility] Last Admin: 12/15/20 11:14 Dose: 750 mg Documented by: Phenytoin Sodium (Phenytoin 100 Mg Cap.Er) 100 mg PO DAILY [facility] Last Admin: 12/15/20 08:06 Dose: 100 mg Documented by: Sodium Chloride (Sodium Chloride 0.9% 10 Ml Syringe) 10 ml FLUSH ASDIRECTED PRN PRN Reason: Keep Vein Open Last Admin: 12/12/20 14:30 Dose: 10 ml Documented by: Sodium Chloride (Sodium Chloride 0.9% 2.5 Ml Syringe) 2.5 ml FLUSH ASDIRECTED PRN PRN Reason: Keep Vein Open Last Admin: 12/12/20 14:31 Dose: 2.5 ml Documented by: Discontinued Medications Acetaminophen (Acetaminophen 500 Mg Tab) 1,000 mg PO ONETIME ONE Stop: 12/12/20 15:39 Last Admin: 12/12/20 15:44 Dose: 1,000 mg Documented by: Azithromycin (Azithromycin 250 Mg Tab) 500 mg PO Q24H [facility] Last Admin: 12/14/20 23:52 Dose: 500 mg Documented by: Sodium Chloride (Normal Saline) 1,000 mls @ 999 mls/hr IV STAT ONE Stop: 12/12/20 15:10 Last Admin: 12/12/20 14:30 Dose: 999 mls/hr Documented by: Piperacillin Sod/Tazobactam (Sod 3.375 gm/ Sodium Chloride) 50 mls @ 100 mls/hr IV ONETIME ONE Stop: 12/12/20 15:00 Last Admin: 12/12/20 14:47 Dose: 100 mls/hr Documented by: Vancomycin HCl 1 gm/ Sodium (Chloride) 250 mls @ 166 mls/hr IV ONETIME ONE Stop: 12/12/20 16:18 Last Admin: 12/12/20 15:23 Dose: 166 mls/hr Documented by: Sodium Chloride (Normal Saline) 1,000 mls @ 999 mls/hr IV STAT ONE Stop: 12/12/20 15:48 Last Admin: 12/12/20 15:23 Dose: 999 mls/hr Documented by: Piperacillin Sod/Tazobactam (Sod 3.375 gm/ Sodium Chloride) 50 mls @ 100 mls/hr IV Q6H [facility] Last Admin: 12/15/20 06:21 Dose: 100 mls/hr Documented by: Ibuprofen (Ibuprofen 400 Mg Tab) 600 mg PO ONETIME ONE Stop: 12/12/20 20:25 Last Admin: 12/12/20 20:28 Dose: 600 mg Documented by: Iopamidol (Iopamidol 755 Mg/Ml 500 Ml Multipack Bottle) 60 ml IVPUSH ONETIME STA Stop: 12/12/20 17:08 Last Admin: 12/12/20 17:08 Dose: 60 ml Documented by: Potassium Chloride (Potassium Chloride 20 Meq Tab.Er) 40 meq PO ONETIME ONE Stop: 12/15/20 08:26 Last Admin: 12/15/20 08:51 Dose: 40 meq Documented by: - Exam Quality Assessment: DVT Prophylaxis (SCDs only). No: Supplemental Oxygen General: Alert, Oriented, Cooperative HEENT: Pupils Equal, Pupils Reactive Lungs: Clear to Auscultation, Normal Respiratory Effort Cardiovascular: Regular Rate, Regular Rhythm, No Murmurs GI/Abdominal Exam: Normal Bowel Sounds, Soft, Non-Tender Extremities: Normal Inspection, Normal Range of Motion, Non-Tender, No Pedal Edema Wound/Incisions: Healing Well Neurological: No New Focal Deficit Psy/Mental Status: Alert, Normal Affect, Normal Mood - Patient Data Lab Results Last 24 hrs: Laboratory Results - last 24 hr 12/15/20 12/15/20 12/15/20 Range/Units 04:50 04:50 04:50 WBC 8.23 (4.0-11.0) K/uL RBC 4.02 L (4.50-5.90) M/uL Hgb 11.6 L (13.0-17.0) g/dL Hct 34.3 L (38.0-50.0) % MCV 85.3 (80.0-98.0) fL MCH 28.9 (27.0-32.0) pg MCHC 33.8 (31.0-37.0) g/dL RDW Std Deviation 43.7 (28.0-62.0) fl RDW Coeff of Raquel 14 (11.0-15.0) % Plt Count 200 (150-400) K/uL MPV 9.40 (7.40-12.00) fL Neut % (Auto) 71.3 (48.0-80.0) % Lymph % (Auto) 14.0 L (16.0-40.0) % [place] % (Auto) 12.8 (0.0-15.0) % Eos % (Auto) 1.7 (0.0-7.0) % Baso % (Auto) 0.2 (0.0-1.5) % Neut # (Auto) 5.9 H (1.4-5.7) K/uL Lymph # (Auto) 1.2 (0.6-2.4) K/uL [place] # (Auto) 1.1 H (0.0-0.8) K/uL Eos # (Auto) 0.1 (0.0-0.7) K/uL Baso # (Auto) 0.0 (0.0-0.1) K/uL Nucleated RBC % 0.0 /100WBC Nucleated RBCs # 0 K/uL Sodium 140 (136-148) mmol/L Potassium 2.9 L (3.5-5.1) mmol/L Chloride 108 H (98-107) mmol/L Carbon Dioxide 25.0 (21.0-32.0) mmol/L BUN 12 (7.0-18.0) mg/dL Creatinine 1.0 (0.8-1.3) mg/dL Est Cr Clr Drug Dosing 58.61 mL/min Estimated GFR (MDRD) > 60.0 ml/min Glucose 118 H (74-106) mg/dL Calcium 7.4 L (8.5-10.1) mg/dL Magnesium 1.9 (1.8-2.4) mg/dL Result Diagrams: 12/15/20 04:50 12/15/20 04:50 Denilson Results Last 24 hrs: Microbiology 12/12/20 14:15 Blood Culture Identification Panel - Preliminary Blood Klebsiella Pneumoniae 12/12/20 13:50 Urine Culture - Final Urine Klebsiella Pneumoniae 12/12/20 14:31 Aerobic Blood Culture - Preliminary Blood - Venous - Lab Draw NO GROWTH AFTER 2 DAYS Anaerobic Blood Culture - Preliminary NO GROWTH AFTER 2 DAYS 12/12/20 14:15 Aerobic Blood Culture - Final Blood - Venous Anaerobic Blood Culture - Preliminary NO GROWTH AFTER 2 DAYS Sepsis Event Note - Evaluation Sepsis Screening Result: No Definite Risk - Focused Exam Vital Signs: Vital Signs Temp Pulse Resp BP Pulse Ox 12/15/20 07:00 97.4 F 99 16 136/87 94 L 12/15/20 03:50 97 F 77 15 128/73 95 - Problem List & Annotations (1) Sepsis SNOMED Code(s): 75219408 Code(s): A41.9 - SEPSIS, UNSPECIFIED ORGANISM Status: Resolved Current Visit: Yes Qualifiers: Sepsis type: sepsis due to unspecified organism Sepsis acute organ dys function status: without acute organ dysfunction Qualified Code(s): A41.9 - Sepsis, unspecified organism (2) UTI (urinary tract infection) SNOMED Code(s): 53512871 Code(s): N39.0 - URINARY TRACT INFECTION, SITE NOT SPECIFIED Status: Acute Current Visit: Yes (3) Urinary outflow obstruction SNOMED Code(s): 748768960 Code(s): N13.9 - OBSTRUCTIVE AND REFLUX UROPATHY, UNSPECIFIED Status: Acute Current Visit: Yes (4) Community acquired pneumonia SNOMED Code(s): 099963952 Code(s): J18.9 - PNEUMONIA, UNSPECIFIED ORGANISM Status: Acute Current Visit: Yes Qualifiers: Laterality: right Lung location: middle lobe of lung Qualified Code(s): J18.9 - Pneumonia, unspecified organism (5) Subarachnoid hemorrhage SNOMED Code(s): 693212676 Code(s): I60.9 - NONTRAUMATIC SUBARACHNOID HEMORRHAGE, UNSPECIFIED Status: Chronic Current Visit: No (6) Seizure disorder SNOMED Code(s): 493323771 Code(s): G40.909 - EPILEPSY, UNSP, NOT INTRACTABLE, WITHOUT STATUS EPILEPTICUS Status: Acute Current Visit: Yes - Problem List Review Problem List Initiated/Reviewed/Updated: Yes - My Orders Last 24 Hours: My Active Orders 12/15/20 08:26 Sodium Chloride 0.9% with KCl [Normal Saline with 40 mEq KCl] 1,000 ml IV ONETIME 12/15/20 10:30 levoFLOXacin [Levaquin] 750 mg PO Q24H 12/15/20 11:45 C DIFFICILE AG/TOXIN W/REFLEX [RM] Routine - Plan Plan:: 74 yo male admitted for sepsis from UTI. 1. UTI with Klebsiella pneumoniae bacteremia: -Discontinue Zosyn, -Start Levaquin 750 mg p.o. daily 2. CAP -Discontinue azithromycin -Levaquin as above 3. ANNMARIE: -Improved - Discontinue IVFs 4.Urinary obstruction: - Rodriguez in place - Urology referral - Start Flomax - Education on [facility], arrange Home health as well. 5. Hypokalemia -Having diarrhea will check stools -Give 40 p.o. and 40 meq IV today of potassium recheck potassium this afternoon. VTE prophylaxis: SCDs only due to recent SAH CODE STATUS: Full code Dispo: Possible a.m. with home health
[2020-12-15] MEDS: Tamsulosin 0.4 MG Cap.ER PO SCH (13:25)
[2020-12-15] MEDS: Acidophilus with Citrus Pectin Tab PO SCH (13:25)
[2020-12-16 07:04] LABS: BLOOD UREA NITROGEN,BUN 8 mg/dL (7.0-18.0); CARBON DIOXIDE,CO2 22.8 mmol/L (21.0-32.0); CHLORIDE,CL 107 mmol/L (98-107); GLUCOSE RANDOM 99 mg/dL (74-106); POTASSIUM,K 3.7 mmol/L (3.5-5.1); SODIUM,NA 140 mmol/L (136-148)
[2020-12-16] MEDS: Acidophilus with Citrus Pectin Tab PO SCH (08:05)
[2020-12-16] MEDS: Tamsulosin 0.4 MG Cap.ER PO SCH (08:05)
[2020-12-16] MEDS: Acetaminophen 325 MG Tab PO PRN ×2 (08:06→21:20)
[2020-12-16] MEDS: Phenytoin 100 MG Cap.ER PO SCH (08:06)
[2020-12-16] MEDS ORDERED: Magnesium Sulfate/Water 4 GM in Premix Bag 1 BAG IV ONE (08:08)
[2020-12-16] MEDS ORDERED: Diltiazem 25 MG/5 ML SDV IVPUSH ONE ×3 (09:11→18:25)
--- NOTE | 2020-12-16 09:12 | PCM.PN ---
- General Info Date of Service: 12/16/20 Admission Dx/Problem (Free Text): Admission Diagnosis/Problem Admission Diagnosis/Problem Acute pyelonephritis Subjective Update: Feeling well this morning. Denies any concerns, but nursing reports increased HR. Denies chest pain, light headedness, dizziness or shortness of breath. Wants rodriguez to come out if possible. Wanting to go home. Functional Status: Reports: Pain Controlled, Tolerating Diet, Ambulating - Review of Systems General: Reports: No Symptoms. Denies: Weakness, Fatigue HEENT: Reports: No Symptoms. Denies: Post Nasal Drip, Sore Throat, Visual Changes Pulmonary: Reports: No Symptoms. Denies: Shortness of Breath, Cough, Sputum Cardiovascular: Reports: No Symptoms. Denies: Chest Pain, Palpitations, Dyspnea on Exertion Gastrointestinal: Reports: Diarrhea (has improved). Denies: Abdominal Pain, Nausea, Vomiting Genitourinary: Reports: No Symptoms Musculoskeletal: Reports: No Symptoms. Denies: Neck Pain Skin: Reports: No Symptoms Neurological: Reports: No Symptoms Psychiatric: Reports: No Symptoms - Patient Data Vitals - Most Recent: Last Vital Signs Temp 100.5 F 12/16/20 08:00 Pulse 93 12/16/20 08:03 Resp 18 12/16/20 08:00 BP 141/93 H 12/16/20 08:00 Pulse Ox 93 L 12/16/20 08:00 Weight - Most Recent: 71.441 kg I&O - Last 24 Hours: Intake & Output 12/15/20 12/16/20 12/16/20 22:59 06:59 14:59 Intake Total 1600 480 Output Total 1250 1850 Balance 350 -1370 Lab Results Last 24 Hours: Laboratory Results - last 24 hr 12/15/20 12/16/20 12/16/20 Range/Units 17:10 05:55 05:55 WBC 12.75 H (4.0-11.0) K/uL RBC 4.79 (4.50-5.90) M/uL Hgb 13.9 (13.0-17.0) g/dL Hct 41.0 (38.0-50.0) % MCV 85.6 (80.0-98.0) fL MCH 29.0 (27.0-32.0) pg MCHC 33.9 (31.0-37.0) g/dL RDW Std Deviation 43.7 (28.0-62.0) fl RDW Coeff of Raquel 14 (11.0-15.0) % Plt Count 230 (150-400) K/uL MPV 9.40 (7.40-12.00) fL Neut % (Auto) 72.8 (48.0-80.0) % Lymph % (Auto) 13.5 L (16.0-40.0) % [place] % (Auto) 12.9 (0.0-15.0) % Eos % (Auto) 0.5 (0.0-7.0) % Baso % (Auto) 0.3 (0.0-1.5) % Neut # (Auto) 9.3 H (1.4-5.7) K/uL Lymph # (Auto) 1.7 (0.6-2.4) K/uL [place] # (Auto) 1.7 H (0.0-0.8) K/uL Eos # (Auto) 0.1 (0.0-0.7) K/uL Baso # (Auto) 0.0 (0.0-0.1) K/uL Nucleated RBC % 0.0 /100WBC Nucleated RBCs # 0 K/uL Sodium 140 (136-148) mmol/L Potassium 3.9 3.7 (3.5-5.1) mmol/L Chloride 107 (98-107) mmol/L Carbon Dioxide 22.8 (21.0-32.0) mmol/L BUN 8 (7.0-18.0) mg/dL Creatinine 1.0 (0.8-1.3) mg/dL Est Cr Clr Drug Dosing 58.61 mL/min Estimated GFR (MDRD) > 60.0 ml/min Glucose 99 (74-106) mg/dL Calcium 8.3 L (8.5-10.1) mg/dL Magnesium 1.6 L (1.8-2.4) mg/dL [place]il[place] Results Last 24 Hours: Microbiology 12/12/20 14:15 Blood Culture Identification Panel - Final Blood Klebsiella Pneumoniae 12/12/20 14:31 Aerobic Blood Culture - Preliminary Blood - Venous - Lab Draw NO GROWTH AFTER 3 DAYS Anaerobic Blood Culture - Preliminary NO GROWTH AFTER 3 DAYS 12/12/20 14:15 Aerobic Blood Culture - Final Blood - Venous Anaerobic Blood Culture - Preliminary NO GROWTH AFTER 3 DAYS 12/15/20 11:45 C. difficile Antigen & Toxins A,B - Final Stool / Feces 12/12/20 13:50 Urine Culture - Final Urine Klebsiella Pneumoniae Med Orders - Current: Current Medications Acetaminophen (Acetaminophen 325 Mg Tab) 650 mg PO Q6H PRN PRN Reason: Pain (Mild 1-3)/fever Last Admin: 12/16/20 08:06 Dose: 650 mg Documented by: Acidophilus/Pectin (Acidophilus With Evangeline Pectin Tab) 1 tab PO DAILY [facility] Last Admin: 12/16/20 08:05 Dose: 1 tab Documented by: Diltiazem HCl (Diltiazem 25 Mg/5 Ml Sdv) 20 mg IVPUSH ONETIME ONE Stop: 12/16/20 09:12 Magnesium Sulfate 4 gm/ Premix 100 mls @ 33.333 mls/hr IV ONETIME ONE Stop: 12/16/20 11:07 Last Admin: 12/16/20 08:40 Dose: 33.333 mls/hr Documented by: Levofloxacin (Levofloxacin 750 Mg Tab) 750 mg PO Q24H [facility] Last Admin: 12/15/20 11:14 Dose: 750 mg Documented by: Phenytoin Sodium (Phenytoin 100 Mg Cap.Er) 100 mg PO DAILY [facility] Last Admin: 12/16/20 08:06 Dose: 100 mg Documented by: Sodium Chloride (Sodium Chloride 0.9% 10 Ml Syringe) 10 ml FLUSH ASDIRECTED PRN PRN Reason: Keep Vein Open Last Admin: 12/12/20 14:30 Dose: 10 ml Documented by: Sodium Chloride (Sodium Chloride 0.9% 2.5 Ml Syringe) 2.5 ml FLUSH ASDIRECTED PRN PRN Reason: Keep Vein Open Last Admin: 12/12/20 14:31 Dose: 2.5 ml Documented by: Tamsulosin HCl (Tamsulosin 0.4 Mg Cap.Er) 0.4 mg PO PCBREAKFAST [facility] Last Admin: 12/16/20 08:05 Dose: 0.4 mg Documented by: Discontinued Medications Acetaminophen (Acetaminophen 500 Mg Tab) 1,000 mg PO ONETIME ONE Stop: 12/12/20 15:39 Last Admin: 12/12/20 15:44 Dose: 1,000 mg Documented by: Azithromycin (Azithromycin 250 Mg Tab) 500 mg PO Q24H [facility] Last Admin: 12/14/20 23:52 Dose: 500 mg Documented by: Sodium Chloride (Normal Saline) 1,000 mls @ 999 mls/hr IV STAT ONE Stop: 12/12/20 15:10 Last Admin: 12/12/20 14:30 Dose: 999 mls/hr Documented by: Piperacillin Sod/Tazobactam (Sod 3.375 gm/ Sodium Chloride) 50 mls @ 100 mls/hr IV ONETIME ONE Stop: 12/12/20 15:00 Last Admin: 12/12/20 14:47 Dose: 100 mls/hr Documented by: Vancomycin HCl 1 gm/ Sodium (Chloride) 250 mls @ 166 mls/hr IV ONETIME ONE Stop: 12/12/20 16:18 Last Admin: 12/12/20 15:23 Dose: 166 mls/hr Documented by: Sodium Chloride (Normal Saline) 1,000 mls @ 999 mls/hr IV STAT ONE Stop: 12/12/20 15:48 Last Admin: 12/12/20 15:23 Dose: 999 mls/hr Documented by: Piperacillin Sod/Tazobactam (Sod 3.375 gm/ Sodium Chloride) 50 mls @ 100 mls/hr IV Q6H [facility] Last Admin: 12/15/20 06:21 Dose: 100 mls/hr Documented by: Sodium Chloride (Normal Saline) 1,000 mls @ 125 mls/hr IV ASDIRECTED [facility] Last Admin: 12/15/20 03:48 Dose: 125 mls/hr Documented by: Potassium Chloride/Sodium Chloride (Normal Saline With 40 Meq Kcl) 1,000 mls @ 125 mls/hr IV ONETIME ONE Stop: 12/15/20 16:25 Last Admin: 12/15/20 08:52 Dose: 125 mls/hr Documented by: Ibuprofen (Ibuprofen 400 Mg Tab) 600 mg PO ONETIME ONE Stop: 12/12/20 20:25 Last Admin: 12/12/20 20:28 Dose: 600 mg Documented by: Iopamidol (Iopamidol 755 Mg/Ml 500 Ml Multipack Bottle) 60 ml IVPUSH ONETIME STA Stop: 12/12/20 17:08 Last Admin: 12/12/20 17:08 Dose: 60 ml Documented by: Potassium Chloride (Potassium Chloride 20 Meq Tab.Er) 40 meq PO ONETIME ONE Stop: 12/15/20 08:26 Last Admin: 12/15/20 08:51 Dose: 40 meq Documented by: Potassium Chloride (Potassium Chloride 20 Meq Tab.Er) 40 meq PO ONETIME ONE Stop: 12/15/20 14:01 Last Admin: 12/15/20 13:26 Dose: 40 meq Documented by: - Exam General: Alert, Oriented, Cooperative, No Acute Distress Lungs: Clear to Auscultation, Normal Respiratory Effort Cardiovascular: Irregular Rhythm, Tachycardia GI/Abdominal Exam: Normal Bowel Sounds, Soft, Non-Tender Back Exam: Normal Inspection, Full Range of Motion Extremities: Normal Inspection, Normal Range of Motion, Non-Tender, No Pedal Edema Neurological: No New Focal Deficit Psy/Mental Status: Alert, Normal Affect, Normal Mood - Patient Data Lab Results Last 24 hrs: Laboratory Results - last 24 hr 12/15/20 12/16/20 12/16/20 Range/Units 17:10 05:55 05:55 WBC 12.75 H (4.0-11.0) K/uL RBC 4.79 (4.50-5.90) M/uL Hgb 13.9 (13.0-17.0) g/dL Hct 41.0 (38.0-50.0) % MCV 85.6 (80.0-98.0) fL MCH 29.0 (27.0-32.0) pg MCHC 33.9 (31.0-37.0) g/dL RDW Std Deviation 43.7 (28.0-62.0) fl RDW Coeff of Raquel 14 (11.0-15.0) % Plt Count 230 (150-400) K/uL MPV 9.40 (7.40-12.00) fL Neut % (Auto) 72.8 (48.0-80.0) % Lymph % (Auto) 13.5 L (16.0-40.0) % [place] % (Auto) 12.9 (0.0-15.0) % Eos % (Auto) 0.5 (0.0-7.0) % Baso % (Auto) 0.3 (0.0-1.5) % Neut # (Auto) 9.3 H (1.4-5.7) K/uL Lymph # (Auto) 1.7 (0.6-2.4) K/uL [place] # (Auto) 1.7 H (0.0-0.8) K/uL Eos # (Auto) 0.1 (0.0-0.7) K/uL Baso # (Auto) 0.0 (0.0-0.1) K/uL Nucleated RBC % 0.0 /100WBC Nucleated RBCs # 0 K/uL Sodium 140 (136-148) mmol/L Potassium 3.9 3.7 (3.5-5.1) mmol/L Chloride 107 (98-107) mmol/L Carbon Dioxide 22.8 (21.0-32.0) mmol/L BUN 8 (7.0-18.0) mg/dL Creatinine 1.0 (0.8-1.3) mg/dL Est Cr Clr Drug Dosing 58.61 mL/min Estimated GFR (MDRD) > 60.0 ml/min Glucose 99 (74-106) mg/dL Calcium 8.3 L (8.5-10.1) mg/dL Magnesium 1.6 L (1.8-2.4) mg/dL Result Diagrams: 12/16/20 05:55 12/16/20 05:55 Denilson Results Last 24 hrs: Microbiology 12/12/20 14:15 Blood Culture Identification Panel - Final Blood Klebsiella Pneumoniae 12/12/20 14:31 Aerobic Blood Culture - Preliminary Blood - Venous - Lab Draw NO GROWTH AFTER 3 DAYS Anaerobic Blood Culture - Preliminary NO GROWTH AFTER 3 DAYS 12/12/20 14:15 Aerobic Blood Culture - Final Blood - Venous Anaerobic Blood Culture - Preliminary NO GROWTH AFTER 3 DAYS 12/15/20 11:45 C. difficile Antigen & Toxins A,B - Final Stool / Feces 12/12/20 13:50 Urine Culture - Final Urine Klebsiella Pneumoniae Sepsis Event Note - Evaluation Sepsis Screening Result: No Definite Risk - Focused Exam Vital Signs: Vital Signs Temp Pulse Resp BP Pulse Ox Pulse Ox 12/16/20 08:03 93 12/16/20 08:00 100.5 F 140 H 18 141/93 H 93 L 12/16/20 04:00 98.1 F 87 16 134/84 93 L 12/16/20 00:00 94 L - Problem List & Annotations (1) Sepsis SNOMED Code(s): 70071761 Code(s): A41.9 - SEPSIS, UNSPECIFIED ORGANISM Status: Resolved Current Visit: Yes Qualifiers: Sepsis type: sepsis due to unspecified organism Sepsis acute organ dysfunction status: without acute organ dysfunction Qualified Code(s): A41.9 - Sepsis, unspecified organism (2) UTI (urinary tract infection) SNOMED Code(s): 90593751 Code(s): N39.0 - URINARY TRACT INFECTION, SITE NOT SPECIFIED Status: Acute Current Visit: Yes (3) Urinary outflow obstruction SNOMED Code(s): 029383390 Code(s): N13.9 - OBSTRUCTIVE AND REFLUX UROPATHY, UNSPECIFIED Status: Acute Current Visit: Yes (4) Community acquired pneumonia SNOMED Code(s): 852233346 Code(s): J18.9 - PNEUMONIA, UNSPECIFIED ORGANISM Status: Acute Current Visit: Yes Qualifiers: Laterality: right Lung location: middle lobe of lung Qualified Code(s): J18.9 - Pneumonia, unspecified organism (5) Subarachnoid hemorrhage SNOMED Code(s): 381264054 Code(s): I60.9 - NONTRAUMATIC SUBARACHNOID HEMORRHAGE, UNSPECIFIED Status: Chronic Current Visit: No (6) Seizure disorder SNOMED Code(s): 892591056 Code(s): G40.909 - EPILEPSY, UNSP, NOT INTRACTABLE, WITHOUT STATUS EPILEPTICUS Status: Acute Current Visit: Yes - Problem List Review Problem List Initiated/Reviewed/Updated: Yes - My Orders Last 24 Hours: My Active Orders 12/15/20 10:30 levoFLOXacin [Levaquin] 750 mg PO Q24H 12/15/20 12:44 Tamsulosin [Flomax] 0.4 mg PO PCBREAKFAST 12/15/20 13:00 Acidophilus/Pectin, Evangeline 1 tab PO DAILY 12/16/20 08:07 EKG 12 Lead [EKG Documentation Completion] [RC] STAT 12/16/20 08:08 Chest 1V Frontal [CR] Stat Magnesium Sulfate/Water [Magnesium Sulfate in Water 4 GM/100 ML] 4 gm Premix Bag 1 bag IV ONETIME 12/16/20 08:09 Telemetry Monitoring [Cardiac Monitoring] [RC] . DIRECTED 12/16/20 09:11 Diltiazem 20 mg IVPUSH ONETIME ONE - Plan Plan:: 74 yo male admitted for sepsis from UTI. 1. UTI with Klebsiella pneumoniae bacteremia: -Start Levaquin 750 mg p.o. daily 2. CAP -Levaquin as above 3. Afib - This am nursing reports elevated HR, asymptomatic. EKG obtained, Atrial tach. - Telemetry placed and patient HR elevated to 160-180s Afib - Diltiazem 20 mg IV given, HR improved to 90s. - Will start Diltiazem 30 mg Q6 PO and continue to monitor. - Obtain ECHO - CHADSVACS score 2, patient high risk for bleeding as he recently had SAH. - Replace potassium to keep above 4 and Mag above 2 4.Urinary obstruction: - Rodriguez in place - Urology referral - Continue Flomax - Education on [facility], arrange Home health as well. 5. Hypokalemia -improved today, diarrhea improved, patient negative for Cdiff. Probiotic started VTE prophylaxis: SCDs only due to recent SAH CODE STATUS: Full code Dispo: 1 more day, monitor recent new onset afib
[2020-12-16] MEDS: Levofloxacin 750 MG Tab PO SCH (10:00)
[2020-12-16] MEDS: Diltiazem IR 30 MG Tab PO SCH ×4 (10:00→23:47)
--- NOTE | 2020-12-16 10:13 | CR ---
INDICATION: Fever. Tachycardia. COMPARISON: 13 December 2020. TECHNIQUE: One view. IMPRESSION: Improved to nearly resolved left base airspace opacity. Possible small left pleural effusion blunting the costophrenic angle. Right lung is clear. Pulmonary vascularity and cardiomediastinal silhouette are within normal limits for AP projection. Dictated by Isaias Mendoza MD @ 12/16/2020 10:12:58 AM (Electronically Signed)
[2020-12-16] MEDS ORDERED: Potassium Chloride 20 MEQ Tab.ER PO ONE (10:51)
[2020-12-16] MEDS ORDERED: Diltiazem IR 30 MG Tab PO ONE (11:35)
[2020-12-16] MEDS ORDERED: Digoxin 500 MCG/2 ML Amp IVPUSH ONE (18:24)
[2020-12-17] MEDS: Diltiazem IR 30 MG Tab PO SCH ×3 (05:08→17:15)
[2020-12-17 06:51] LABS: BLOOD UREA NITROGEN,BUN 8 mg/dL (7.0-18.0); CARBON DIOXIDE,CO2 30.1 mmol/L (21.0-32.0); CHLORIDE,CL 107 mmol/L (98-107); GLUCOSE RANDOM 79 mg/dL (74-106); POTASSIUM,K 4.1 mmol/L (3.5-5.1); SODIUM,NA 142 mmol/L (136-148)
[2020-12-17] MEDS: Tamsulosin 0.4 MG Cap.ER PO SCH (08:08)
[2020-12-17] MEDS: Phenytoin 100 MG Cap.ER PO SCH (08:08)
[2020-12-17] MEDS: Acidophilus with Citrus Pectin Tab PO SCH (08:09)
[2020-12-17] MEDS: Digoxin 250 MCG Tab PO SCH (09:59)
[2020-12-17] MEDS: Levofloxacin 750 MG Tab PO SCH (09:59)
[2020-12-17] MEDS ORDERED: Diltiazem 25 MG/5 ML SDV IVPUSH ONE (12:21)
--- NOTE | 2020-12-17 13:18 | PCM.PN ---
- General Info Date of Service: 12/17/20 Admission Dx/Problem (Free Text): Admission Diagnosis/Problem Admission Diagnosis/Problem Acute pyelonephritis Subjective Update: Reports he is feeling much improved today. Continues to have intermittent A. fib RVR especially with activities. Denies any chest pain or shortness of breath. Continues to Rodriguez would like to have this out but was encouraged that he have this out previously and failed outpatient management without a Rodriguez catheter with return obstructive uropathy. Will need outpatient urology follow- up. Functional Status: Reports: Pain Controlled, Tolerating Diet, Ambulating - Review of Systems General: Reports: No Symptoms HEENT: Reports: No Symptoms. Denies: Headaches, Sore Throat, Visual Changes Pulmonary: Reports: No Symptoms. Denies: Shortness of Breath Cardiovascular: Reports: No Symptoms. Denies: Chest Pain, Palpitations Gastrointestinal: Reports: No Symptoms. Denies: Abdominal Pain, Nausea, Vomiting Genitourinary: Reports: No Symptoms. Denies: Dysuria, Frequency, Burning Musculoskeletal: Reports: No Symptoms Skin: Reports: No Symptoms Neurological: Reports: No Symptoms Psychiatric: Reports: No Symptoms - Patient Data Vitals - Most Recent: Last Vital Signs Temp 97.5 F 12/17/20 11:10 Pulse 157 H 12/17/20 12:25 Resp 18 12/17/20 11:10 BP 146/78 H 12/17/20 11:10 Pulse Ox 92 L 12/17/20 11:10 Weight - Most Recent: 71.441 kg I&O - Last 24 Hours: Intake & Output 12/16/20 12/17/20 12/17/20 22:59 06:59 14:59 Intake Total 1090 800 Output Total 1700 1350 Balance -610 -550 Lab Results Last 24 Hours: Laboratory Results - last 24 hr 12/17/20 12/17/20 Range/Units 05:10 05:10 WBC 8.54 (4.0-11.0) K/uL RBC 4.33 L (4.50-5.90) M/uL Hgb 12.5 L (13.0-17.0) g/dL Hct 37.0 L (38.0-50.0) % MCV 85.5 (80.0-98.0) fL MCH 28.9 (27.0-32.0) pg MCHC 33.8 (31.0-37.0) g/dL RDW Std Deviation 43.9 (28.0-62.0) fl RDW Coeff of Raquel 14 (11.0-15.0) % Plt Count 234 (150-400) K/uL MPV 9.40 (7.40-12.00) fL Add Manual Diff YES Neutrophils % (Manual) 61 (48.0-80.0) % Band Neutrophils % 2 % Lymphocytes % (Manual) 25 (16.0-40.0) % Monocytes % (Manual) 10 (0.0-15.0) % Eosinophils % (Manual) 2 (0.0-7.0) % Nucleated RBC % 0.0 /100WBC Absolute Seg Neuts 5.2 (1.4-5.7) Band Neutrophils # 0.2 Lymphocytes # (Manual) 2.1 (0.6-2.4) Monocytes # (Manual) 0.9 H (0.0-0.8) Eosinophils # (Manual) 0.2 (0.0-0.7) Nucleated RBCs # 0 K/uL Sodium 142 (136-148) mmol/L Potassium 4.1 (3.5-5.1) mmol/L Chloride 107 (98-107) mmol/L Carbon Dioxide 30.1 (21.0-32.0) mmol/L BUN 8 (7.0-18.0) mg/dL Creatinine 1.0 (0.8-1.3) mg/dL Est Cr Clr Drug Dosing 58.61 mL/min Estimated GFR (MDRD) > 60.0 ml/min Glucose 79 (74-106) mg/dL Calcium 8.2 L (8.5-10.1) mg/dL Magnesium 1.9 (1.8-2.4) mg/dL [place] Results Last 24 Hours: Microbiology 12/12/20 14:31 Aerobic Blood Culture - Preliminary Blood - Venous - Lab Draw NO GROWTH AFTER 4 DAYS Anaerobic Blood Culture - Preliminary NO GROWTH AFTER 4 DAYS 12/12/20 14:15 Aerobic Blood Culture - Final Blood - Venous Anaerobic Blood Culture - Preliminary NO GROWTH AFTER 4 DAYS Med Orders - Current: Current Medications Acetaminophen (Acetaminophen 325 Mg Tab) 650 mg PO Q6H PRN PRN Reason: Pain (Mild 1-3)/fever Last Admin: 09/08/21 21:20 Dose: 650 mg Documented by: Acidophilus/Pectin (Acidophilus With [place] Pectin Tab) 1 tab PO DAILY [facility] Last Admin: 12/17/20 08:09 Dose: 1 tab Documented by: Digoxin (Digoxin 250 Mcg Tab) 250 mcg PO DAILY [facility] Last Admin: 12/17/20 09:59 Dose: 250 mcg Documented by: Diltiazem HCl (Diltiazem Ir 30 Mg Tab) 60 mg PO Q6HR [facility] Last Admin: 12/17/20 11:37 Dose: 60 mg Documented by: Levofloxacin (Levofloxacin 750 Mg Tab) 750 mg PO Q24H [facility] Last Admin: 12/17/20 09:59 Dose: 750 mg Documented by: Phenytoin Sodium (Phenytoin 100 Mg Cap.Er) 100 mg PO DAILY [facility] Last Admin: 12/17/20 08:08 Dose: 100 mg Documented by: Sodium Chloride (Sodium Chloride 0.9% 10 Ml Syringe) 10 ml FLUSH ASDIRECTED PRN PRN Reason: Keep Vein Open Last Admin: 12/12/20 14:30 Dose: 10 ml Documented by: Sodium Chloride (Sodium Chloride 0.9% 2.5 Ml Syringe) 2.5 ml FLUSH ASDIRECTED PRN PRN Reason: Keep Vein Open Last Admin: 12/12/20 14:31 Dose: 2.5 ml Documented by: Tamsulosin HCl (Tamsulosin 0.4 Mg Cap.Er) 0.4 mg PO PCBREAKFAST [facility] Last Admin: 12/17/20 08:08 Dose: 0.4 mg Documented by: Discontinued Medications Acetaminophen (Acetaminophen 500 Mg Tab) 1,000 mg PO ONETIME ONE Stop: 12/12/20 15:39 Last Admin: 12/12/20 15:44 Dose: 1,000 mg Documented by: Azithromycin (Azithromycin 250 Mg Tab) 500 mg PO Q24H [facility] Last Admin: 12/14/20 23:52 Dose: 500 mg Documented by: Digoxin (Digoxin 500 Mcg/2 Ml Amp) 250 mcg IVPUSH ONETIME ONE Stop: 12/16/20 18:25 Last Admin: 12/16/20 18:37 Dose: 250 mcg Documented by: Diltiazem HCl (Diltiazem 25 Mg/5 Ml Sdv) 20 mg IVPUSH ONETIME ONE Stop: 12/16/20 09:12 Last Admin: 12/16/20 09:21 Dose: 20 mg Documented by: Diltiazem HCl (Diltiazem Ir 30 Mg Tab) 30 mg PO Q6HR [facility] Last Admin: 12/16/20 12:06 Dose: Not Given Documented by: Diltiazem HCl (Diltiazem 25 Mg/5 Ml Sdv) 10 mg IVPUSH ONETIME ONE Stop: 12/16/20 11:36 Last Admin: 12/16/20 11:41 Dose: 10 mg Documented by: Diltiazem HCl (Diltiazem Ir 30 Mg Tab) 30 mg PO ONETIME ONE Stop: 12/16/20 11:36 Last Admin: 12/16/20 11:43 Dose: 30 mg Documented by: Diltiazem HCl (Diltiazem 25 Mg/5 Ml Sdv) 20 mg IVPUSH ONETIME ONE Stop: 12/16/20 18:26 Last Admin: 12/16/20 19:01 Dose: 20 mg Documented by: Diltiazem HCl (Diltiazem 25 Mg/5 Ml Sdv) 10 mg IVPUSH ONETIME ONE Stop: 12/17/20 12:22 Last Admin: 12/17/20 12:29 Dose: 10 mg Documented by: Sodium Chloride (Normal Saline) 1,000 mls @ 999 mls/hr IV STAT ONE Stop: 12/12/20 15:10 Last Admin: 12/12/20 14:30 Dose: 999 mls/hr Documented by: Piperacillin Sod/Tazobactam (Sod 3.375 gm/ Sodium Chloride) 50 mls @ 100 mls/hr IV ONETIME ONE Stop: 12/12/20 15:00 Last Admin: 12/12/20 14:47 Dose: 100 mls/hr Documented by: Vancomycin HCl 1 gm/ Sodium (Chloride) 250 mls @ 166 mls/hr IV ONETIME ONE Stop: 12/12/20 16:18 Last Admin: 12/12/20 15:23 Dose: 166 mls/hr Documented by: Sodium Chloride (Normal Saline) 1,000 mls @ 999 mls/hr IV STAT ONE Stop: 12/12/20 15:48 Last Admin: 12/12/20 15:23 Dose: 999 mls/hr Documented by: Piperacillin Sod/Tazobactam (Sod 3.375 gm/ Sodium Chloride) 50 mls @ 100 mls/hr IV Q6H [facility] Last Admin: 12/15/20 06:21 Dose: 100 mls/hr Documented by: Sodium Chloride (Normal Saline) 1,000 mls @ 125 mls/hr IV ASDIRECTED [facility] Last Admin: 12/15/20 03:48 Dose: 125 mls/hr Documented by: Potassium Chloride/Sodium Chloride (Normal Saline With 40 Meq Kcl) 1,000 mls @ 125 mls/hr IV ONETIME ONE Stop: 12/15/20 16:25 Last Admin: 12/15/20 08:52 Dose: 125 mls/hr Documented by: Magnesium Sulfate 4 gm/ Premix 100 mls @ 33.333 mls/hr IV ONETIME ONE Stop: 12/16/20 11:07 Last Admin: 12/16/20 08:40 Dose: 33.333 mls/hr Documented by: Ibuprofen (Ibuprofen 400 Mg Tab) 600 mg PO ONETIME ONE Stop: 12/12/20 20:25 Last Admin: 12/12/20 20:28 Dose: 600 mg Documented by: Iopamidol (Iopamidol 755 Mg/Ml 500 Ml Multipack Bottle) 60 ml IVPUSH ONETIME STA Stop: 12/12/20 17:08 Last Admin: 12/12/20 17:08 Dose: 60 ml Documented by: Potassium Chloride (Potassium Chloride 20 Meq Tab.Er) 40 meq PO ONETIME ONE Stop: 12/15/20 08:26 Last Admin: 12/15/20 08:51 Dose: 40 meq Documented by: Potassium Chloride (Potassium Chloride 20 Meq Tab.Er) 40 meq PO ONETIME ONE Stop: 12/15/20 14:01 Last Admin: 12/15/20 13:26 Dose: 40 meq Documented by: Potassium Chloride (Potassium Chloride 20 Meq Tab.Er) 40 meq PO ONETIME ONE Stop: 12/16/20 10:52 Last Admin: 12/16/20 11:43 Dose: 40 meq Documented by: - Exam General: Alert, Oriented, Cooperative, No Acute Distress Lungs: Clear to Auscultation, Normal Respiratory Effort Cardiovascular: Regular Rate, Regular Rhythm, Irregular Rhythm (Intermittent bouts of A. fib RVR) GI/Abdominal Exam: Normal Bowel Sounds, Soft, Non-Tender Extremities: Normal Inspection, Normal Range of Motion, Non-Tender, No Pedal Edema Neurological: No New Focal Deficit Psy/Mental Status: Alert, Normal Affect, Normal Mood - Patient Data Lab Results Last 24 hrs: Laboratory Results - last 24 hr 12/17/20 12/17/20 Range/Units 05:10 05:10 WBC 8.54 (4.0-11.0) K/uL RBC 4.33 L (4.50-5.90) M/uL Hgb 12.5 L (13.0-17.0) g/dL Hct 37.0 L (38.0-50.0) % MCV 85.5 (80.0-98.0) fL MCH 28.9 (27.0-32.0) pg MCHC 33.8 (31.0-37.0) g/dL RDW Std Deviation 43.9 (28.0-62.0) fl RDW Coeff of Raquel 14 (11.0-15.0) % Plt Count 234 (150-400) K/uL MPV 9.40 (7.40-12.00) fL Add Manual Diff YES Neutrophils % (Manual) 61 (48.0-80.0) % Band Neutrophils % 2 % Lymphocytes % (Manual) 25 (16.0-40.0) % Monocytes % (Manual) 10 (0.0-15.0) % Eosinophils % (Manual) 2 (0.0-7.0) % Nucleated RBC % 0.0 /100WBC Absolute Seg Neuts 5.2 (1.4-5.7) Band Neutrophils # 0.2 Lymphocytes # (Manual) 2.1 (0.6-2.4) Monocytes # (Manual) 0.9 H (0.0-0.8) Eosinophils # (Manual) 0.2 (0.0-0.7) Nucleated RBCs # 0 K/uL Sodium 142 (136-148) mmol/L Potassium 4.1 (3.5-5.1) mmol/L Chloride 107 (98-107) mmol/L Carbon Dioxide 30.1 (21.0-32.0) mmol/L BUN 8 (7.0-18.0) mg/dL Creatinine 1.0 (0.8-1.3) mg/dL Est Cr Clr Drug Dosing 58.61 mL/min Estimated GFR (MDRD) > 60.0 ml/min Glucose 79 (74-106) mg/dL Calcium 8.2 L (8.5-10.1) mg/dL Magnesium 1.9 (1.8-2.4) mg/dL Result Diagrams: 12/17/20 05:10 12/17/20 05:10 [place] Results Last 24 hrs: Microbiology 12/12/20 14:31 Aerobic Blood Culture - Preliminary Blood - Venous - Lab Draw NO GROWTH AFTER 4 DAYS Anaerobic Blood Culture - Preliminary NO GROWTH AFTER 4 DAYS 12/12/20 14:15 Aerobic Blood Culture - Final Blood - Venous Anaerobic Blood Culture - Preliminary NO GROWTH AFTER 4 DAYS Sepsis Event Note - Evaluation Sepsis Screening Result: Possible Sepsis Risk - Focused Exam Vital Signs: Vital Signs Temp Pulse Pulse Resp BP Pulse Ox 12/17/20 12:25 157 H 12/17/20 11:10 97.5 F 74 18 146/78 H 92 L 12/17/20 09:59 72 12/17/20 07:00 98.0 F 72 16 133/76 92 L 12/17/20 05:06 99.0 F 80 16 150/81 H 95 - Problem List & Annotations (1) Sepsis SNOMED Code(s): 05952975 Code(s): A41.9 - SEPSIS, UNSPECIFIED ORGANISM Status: Resolved Current Visit: Yes Qualifiers: Sepsis type: sepsis due to unspecified organism Sepsis acute organ dysfunction status: without acute organ dysfunction Qualified Code(s): A41.9 - Sepsis, unspecified organism (2) UTI (urinary tract infection) SNOMED Code(s): 02073307 Code(s): N39.0 - URINARY TRACT INFECTION, SITE NOT SPECIFIED Status: Acute Current Visit: Yes (3) Urinary outflow obstruction SNOMED Code(s): 937153424 Code(s): N13.9 - OBSTRUCTIVE AND REFLUX UROPATHY, UNSPECIFIED Status: Acute Current Visit: Yes (4) Community acquired pneumonia SNOMED Code(s): 233323238 Code(s): J18.9 - PNEUMONIA, UNSPECIFIED ORGANISM Status: Acute Current Visit: Yes Qualifiers: Laterality: right Lung location: middle lobe of lung Qualified Code(s): J 18.9 - Pneumonia, unspecified organism (5) Subarachnoid hemorrhage SNOMED Code(s): 879521492 Code(s): I60.9 - NONTRAUMATIC SUBARACHNOID HEMORRHAGE, UNSPECIFIED Status: Chronic Current Visit: No (6) Seizure disorder SNOMED Code(s): 286092125 Code(s): G40.909 - EPILEPSY, UNSP, NOT INTRACTABLE, WITHOUT STATUS EPILEPTICUS Status: Acute Current Visit: Yes - Problem List Review Problem List Initiated/Reviewed/Updated: Yes - My Orders Last 24 Hours: My Active Orders 12/16/20 18:00 Diltiazem IR [Cardizem] 60 mg PO Q6HR 12/17/20 09:00 Digoxin [Lanoxin] 250 mcg PO DAILY 12/18/20 05:11 BASIC METABOLIC PANEL,BMP [CHEM] AM CBC WITH AUTO DIFF [HEME] AM MAGNESIUM [CHEM] AM - Plan Plan:: 74 yo male admitted for sepsis from UTI. 1. UTI with Klebsiella pneumoniae bacteremia: -Continue Levaquin 750 mg p.o. daily 2. CAP -Levaquin as above 3. Afib -Continues to have intermittent A. fib RVR 90 - continue diltiazem 60 mg every 6 consider increasing to - Telemetry placed and patient HR elevated to 160-180s Afib -Digoxin 250 started p.o. -Echo reveals left ventricular ejection fraction 60 to 65%, impaired relaxation grade 1 pattern LV diastolic filling mild to left ventricular hypertrophy normal right ventricular size, wall thickness, and systolic function mild aortic valve sclerosis without stenosis. Mild dilation of ascending aorta no regional wall abnormalities and right ventricular systolic pressure is normal - CHADSVACS score 2, patient high risk for bleeding as he recently had SAH. I did run the case by Dr. Zambrano, neurology and results from September head CT after fall and traumatic subarachnoid hemorrhage. Patient also in that CT head chronic subdural hematomas. Her recommendation would be not to anticoagulate due to the chronic subdural hematomas with unknown cause. She would recommend at this time aspirin only. - Replace potassium to keep above 4 and Mag above 2 4.Urinary obstruction: - Rodriguez in place - Urology referral - Continue Flomax - Education on [facility], arrange Home health as well. VTE prophylaxis: SCDs only due to recent SAH CODE STATUS: Full code Dispo: Possible in a.m. heart rate remained stable
--- NOTE | 2020-12-17 17:33 | PCM.EKG ---
#1 Interpretation EKG Date: 12/16/20 Time: 08:30 Rhythm: A-Fib Rate (Beats/Min): 143 ST-T: Normal
[2020-12-18] MEDS: Diltiazem IR 30 MG Tab PO SCH ×2 (00:01→06:45)
[2020-12-18 06:23] LABS: BLOOD UREA NITROGEN,BUN 12 mg/dL (7.0-18.0); CARBON DIOXIDE,CO2 28.7 mmol/L (21.0-32.0); CHLORIDE,CL 106 mmol/L (98-107); GLUCOSE RANDOM 87 mg/dL (74-106); SODIUM,NA 141 mmol/L (136-148)
[2020-12-18] MEDS: Digoxin 250 MCG Tab PO SCH (08:01)
[2020-12-18] MEDS: Phenytoin 100 MG Cap.ER PO SCH (08:01)
[2020-12-18] MEDS: Acidophilus with Citrus Pectin Tab PO SCH (08:01)
[2020-12-18] MEDS: Tamsulosin 0.4 MG Cap.ER PO SCH (08:01)
[2020-12-18] MEDS: Aspirin 81 MG Tab.Chew PO SCH (09:54)
[2020-12-18] MEDS: Levofloxacin 750 MG Tab PO SCH (09:54)
[2020-12-18] MEDS: Diltiazem 180 MG Cap.CD PO SCH (11:30)
[2020-12-18] MEDS ORDERED: Loperamide 2 MG Cap PO ONE (13:03)
--- NOTE | 2020-12-18 13:03 | PCM.PN ---
- General Info Date of Service: 12/18/20 Admission Dx/Problem (Free Text): Admission Diagnosis/Problem Admission Diagnosis/Problem Acute pyelonephritis Subjective Update: Patient feeling much improved today. Denies any chest pain or shortness of breath. Continues to have intermittent diarrhea. No palpitations Rodriguez remains in place. Functional Status: Reports: Pain Controlled, Tolerating Diet, Ambulating - Review of Systems General: Reports: No Symptoms. Denies: Weakness, Fatigue, Malaise HEENT: Reports: No Symptoms. Denies: Headaches, Rhinitis, Visual Changes Pulmonary: Reports: No Symptoms. Denies: Shortness of Breath Cardiovascular: Reports: No Symptoms. Denies: Chest Pain, Palpitations, Dyspnea on Exertion Gastrointestinal: Reports: Diarrhea. Denies: Abdominal Pain, Nausea, Vomiting Genitourinary: Reports: No Symptoms. Denies: Dysuria, Frequency Musculoskeletal: Reports: No Symptoms Skin: Reports: No Symptoms Neurological: Reports: No Symptoms Psychiatric: Reports: No Symptoms - Patient Data Vitals - Most Recent: Last Vital Signs Temp 96.1 F L 12/18/20 12:00 Pulse 86 12/18/20 12:00 Resp 22 H 12/18/20 12:00 BP 119/79 12/18/20 12:00 Pulse Ox 96 12/18/20 12:00 Weight - Most Recent: 71.441 kg I&O - Last 24 Hours: Intake & Output 12/17/20 12/18/20 12/18/20 22:59 06:59 14:59 Intake Total 1200 1000 Output Total 1800 1600 Balance -600 -600 Lab Results Last 24 Hours: Laboratory Results - last 24 hr 12/18/20 12/18/20 Range/Units 05:25 05:25 WBC 8.19 (4.0-11.0) K/uL RBC 4.29 L (4.50-5.90) M/uL Hgb 12.2 L (13.0-17.0) g/dL Hct 36.6 L (38.0-50.0) % MCV 85.3 (80.0-98.0) fL MCH 28.4 (27.0-32.0) pg MCHC 33.3 (31.0-37.0) g/dL RDW Std Deviation 43.9 (28.0-62.0) fl RDW Coeff of Raquel 14 (11.0-15.0) % Plt Count 246 (150-400) K/uL MPV 9.30 (7.40-12.00) fL Add Manual Diff YES Neutrophils % (Manual) 68 (48.0-80.0) % Band Neutrophils % 3 % Lymphocytes % (Manual) 20 (16.0-40.0) % Monocytes % (Manual) 7 (0.0-15.0) % Eosinophils % (Manual) 1 (0.0-7.0) % Basophils % (Manual) 1 (0.0-1.5) % Nucleated RBC % 0.0 /100WBC Absolute Seg Neuts 5.6 (1.4-5.7) Band Neutrophils # 0.2 Lymphocytes # (Manual) 1.6 (0.6-2.4) Monocytes # (Manual) 0.6 (0.0-0.8) Eosinophils # (Manual) 0.1 (0.0-0.7) Basophils # (Manual) 0.1 (0.0-0.1) Nucleated RBCs # 0 K/uL Sodium 141 (136-148) mmol/L Potassium 4.0 (3.5-5.1) mmol/L Chloride 106 (98-107) mmol/L Carbon Dioxide 28.7 (21.0-32.0) mmol/L BUN 12 (7.0-18.0) mg/dL Creatinine 0.9 (0.8-1.3) mg/dL Est Cr Clr Drug Dosing 65.12 mL/min Estimated GFR (MDRD) > 60.0 ml/min Glucose 87 (74-106) mg/dL Calcium 8.1 L (8.5-10.1) mg/dL Magnesium 1.8 (1.8-2.4) mg/dL Denilson Results Last 24 Hours: Microbiology 12/12/20 14:31 Aerobic Blood Culture - Final Blood - Venous - Lab Draw NO GROWTH AFTER 5 DAYS Anaerobic Blood Culture - Final NO GROWTH AFTER 5 DAYS 12/12/20 14:15 Aerobic Blood Culture - Final Blood - Venous Anaerobic Blood Culture - Final NO GROWTH AFTER 5 DAYS Med Orders - Current: Current Medications Acetaminophen (Acetaminophen 325 Mg Tab) 650 mg PO Q6H PRN PRN Reason: Pain (Mild 1-3)/fever Last Admin: 12/16/20 21:20 Dose: 650 mg Documented by: Acidophilus/Pectin (Acidophilus With [place] Pectin Tab) 1 tab PO DAILY [facility] Last Admin: 12/18/20 08:01 Dose: 1 tab Documented by: Aspirin (Aspirin 81 Mg Tab.Chew) 81 mg PO DAILY [facility] Last Admin: 12/18/20 09:54 Dose: 81 mg Documented by: Digoxin (Digoxin 250 Mcg Tab) 250 mcg PO DAILY [facility] Last Admin: 12/18/20 08:01 Dose: 250 mcg Documented by: Diltiazem HCl (Diltiazem 180 Mg Cap.Cd) 360 mg PO DAILY@1200 [facility] Last Admin: 12/18/20 11:30 Dose: 360 mg Documented by: Levofloxacin (Levofloxacin 750 Mg Tab) 750 mg PO Q24H [facility] Last Admin: 12/18/20 09:54 Dose: 750 mg Documented by: Phenytoin Sodium (Phenytoin 100 Mg Cap.Er) 100 mg PO DAILY [facility] Last Admin: 12/18/20 08:01 Dose: 100 mg Documented by: Sodium Chloride (Sodium Chloride 0.9% 10 Ml Syringe) 10 ml FLUSH ASDIRECTED PRN PRN Reason: Keep Vein Open Last Admin: 12/12/20 14:30 Dose: 10 ml Documented by: Sodium Chloride (Sodium Chloride 0.9% 2.5 Ml Syringe) 2.5 ml FLUSH ASDIRECTED PRN PRN Reason: Keep Vein Open Last Admin: 12/12/20 14:31 Dose: 2.5 ml Documented by: Tamsulosin HCl (Tamsulosin 0.4 Mg Cap.Er) 0.4 mg PO PCBREAKFAST [facility] Last Admin: 12/18/20 08:01 Dose: 0.4 mg Documented by: Discontinued Medications Acetaminophen (Acetaminophen 500 Mg Tab) 1,000 mg PO ONETIME ONE Stop: 12/12/20 15:39 Last Admin: 12/12/20 15:44 Dose: 1,000 mg Documented by: Azithromycin (Azithromycin 250 Mg Tab) 500 mg PO Q24H [facility] Last Admin: 12/14/20 23:52 Dose: 500 mg Documented by: Digoxin (Digoxin 500 Mcg/2 Ml Amp) 250 mcg IVPUSH ONETIME ONE Stop: 12/16/20 18:25 Last Admin: 12/16/20 18:37 Dose: 250 mcg Documented by: Diltiazem HCl (Diltiazem 25 Mg/5 Ml Sdv) 20 mg IVPUSH ONETIME ONE Stop: 12/16/20 09:12 Last Admin: 12/16/20 09:21 Dose: 20 mg Documented by: Diltiazem HCl (Diltiazem Ir 30 Mg Tab) 30 mg PO Q6HR [facility] Last Admin: 12/16/20 12:06 Dose: Not Given Documented by: Diltiazem HCl (Diltiazem 25 Mg/5 Ml Sdv) 10 mg IVPUSH ONETIME ONE Stop: 12/16/20 11:36 Last Admin: 12/16/20 11:41 Dose: 10 mg Documented by: Diltiazem HCl (Diltiazem Ir 30 Mg Tab) 30 mg PO ONETIME ONE Stop: 12/16/20 11:36 Last Admin: 12/16/20 11:43 Dose: 30 mg Documented by: Diltiazem HCl (Diltiazem Ir 30 Mg Tab) 60 mg PO Q6HR [facility] Last Admin: 12/17/20 11:37 Dose: 60 mg Documented by: Diltiazem HCl (Diltiazem 25 Mg/5 Ml Sdv) 20 mg IVPUSH ONETIME ONE Stop: 12/16/20 18:26 Last Admin: 12/16/20 19:01 Dose: 20 mg Documented by: Diltiazem HCl (Diltiazem 25 Mg/5 Ml Sdv) 10 mg IVPUSH ONETIME ONE Stop: 12/17/20 12:22 Last Admin: 12/17/20 12:29 Dose: 10 mg Documented by: Diltiazem HCl (Diltiazem Ir 30 Mg Tab) 90 mg PO Q6HR [facility] Last Admin: 12/18/20 06:45 Dose: 90 mg Documented by: Sodium Chloride (Normal Saline) 1,000 mls @ 999 mls/hr IV STAT ONE Stop: 12/12/20 15:10 Last Admin: 12/12/20 14:30 Dose: 999 mls/hr Documented by: Piperacillin Sod/Tazobactam (Sod 3.375 gm/ Sodium Chloride) 50 mls @ 100 mls/hr IV ONETIME ONE Stop: 12/12/20 15:00 Last Admin: 12/12/20 14:47 Dose: 100 mls/hr Documented by: Vancomycin HCl 1 gm/ Sodium (Chloride) 250 mls @ 166 mls/hr IV ONETIME ONE Stop: 12/12/20 16:18 Last Admin: 12/12/20 15:23 Dose: 166 mls/hr Documented by: Sodium Chloride (Normal Saline) 1,000 mls @ 999 mls/hr IV STAT ONE Stop: 12/12/20 15:48 Last Admin: 12/12/20 15:23 Dose: 999 mls/hr Documented by: Piperacillin Sod/Tazobactam (Sod 3.375 gm/ Sodium Chloride) 50 mls @ 100 mls/hr IV Q6H [facility] Last Admin: 12/15/20 06:21 Dose: 100 mls/hr Documented by: Sodium Chloride (Normal Saline) 1,000 mls @ 125 mls/hr IV ASDIRECTED [facility] Last Admin: 12/15/20 03:48 Dose: 125 mls/hr Documented by: Potassium Chloride/Sodium Chloride (Normal Saline With 40 Meq Kcl) 1,000 mls @ 125 mls/hr IV ONETIME ONE Stop: 12/15/20 16:25 Last Admin: 12/15/20 08:52 Dose: 125 mls/hr Documented by: Magnesium Sulfate 4 gm/ Premix 100 mls @ 33.333 mls/hr IV ONETIME ONE Stop: 12/16/20 11:07 Last Admin: 12/16/20 08:40 Dose: 33.333 mls/hr Documented by: Ibuprofen (Ibuprofen 400 Mg Tab) 600 mg PO ONETIME ONE Stop: 12/12/20 20:25 Last Admin: 12/12/20 20:28 Dose: 600 mg Documented by: Iopamidol (Iopamidol 755 Mg/Ml 500 Ml Multipack Bottle) 60 ml IVPUSH ONETIME STA Stop: 12/12/20 17:08 Last Admin: 12/12/20 17:08 Dose: 60 ml Documented by: Potassium Chloride (Potassium Chloride 20 Meq Tab.Er) 40 meq PO ONETIME ONE Stop: 12/15/20 08:26 Last Admin: 12/15/20 08:51 Dose: 40 meq Documented by: Potassium Chloride (Potassium Chloride 20 Meq Tab.Er) 40 meq PO ONETIME ONE Stop: 12/15/20 14:01 Last Admin: 12/15/20 13:26 Dose: 40 meq Documented by: Potassium Chloride (Potassium Chloride 20 Meq Tab.Er) 40 meq PO ONETIME ONE Stop: 12/16/20 10:52 Last Admin: 12/16/20 11:43 Dose: 40 meq Documented by: - Exam Quality Assessment: Urine Catheter, DVT Prophylaxis. No: Supplemental Oxygen General: Alert, Oriented, Cooperative, No Acute Distress Lungs: Clear to Auscultation, Normal Respiratory Effort Cardiovascular: Regular Rate, Regular Rhythm. No: Irregular Rhythm, Tachycardia GI/Abdominal Exam: Normal Bowel Sounds, Soft, Non-Tender, No Distention Extremities: Normal Inspection, Normal Range of Motion, Non-Tender, No Pedal Edema Skin: Warm, Dry Psy/Mental Status: Alert, Normal Affect, Normal Mood - Patient Data Lab Results Last 24 hrs: Laboratory Results - last 24 hr 12/18/20 12/18/20 Range/Units 05:25 05:25 WBC 8.19 (4.0-11.0) K/uL RBC 4.29 L (4.50-5.90) M/uL Hgb 12.2 L (13.0-17.0) g/dL Hct 36.6 L (38.0-50.0) % MCV 85.3 (80.0-98.0) fL MCH 28.4 (27.0-32.0) pg MCHC 33.3 (31.0-37.0) g/dL RDW Std Deviation 43.9 (28.0-62.0) fl RDW Coeff of Raquel 14 (11.0-15.0) % Plt Count 246 (150-400) K/uL MPV 9.30 (7.40-12.00) fL Add Manual Diff YES Neutrophils % (Manual) 68 (48.0-80.0) % Band Neutrophils % 3 % Lymphocytes % (Manual) 20 (16.0-40.0) % Monocytes % (Manual) 7 (0.0-15.0) % Eosinophils % (Manual) 1 (0.0-7.0) % Basophils % (Manual) 1 (0.0-1.5) % Nucleated RBC % 0.0 /100WBC Absolute Seg Neuts 5.6 (1.4-5.7) Band Neutrophils # 0.2 Lymphocytes # (Manual) 1.6 (0.6-2.4) Monocytes # (Manual) 0.6 (0.0-0.8) Eosinophils # (Manual) 0.1 (0.0-0.7) Basophils # (Manual) 0.1 (0.0-0.1) Nucleated RBCs # 0 K/uL Sodium 141 (136-148) mmol/L Potassium 4.0 (3.5-5.1) mmol/L Chloride 106 (98-107) mmol/L Carbon Dioxide 28.7 (21.0-32.0) mmol/L BUN 12 (7.0-18.0) mg/dL Creatinine 0.9 (0.8-1.3) mg/dL Est Cr Clr Drug Dosing 65.12 mL/min Estimated GFR (MDRD) > 60.0 ml/min Glucose 87 (74-106) mg/dL Calcium 8.1 L (8.5-10.1) mg/dL Magnesium 1.8 (1.8-2.4) mg/dL Result Diagrams: 12/18/20 05:25 12/18/20 05:25 Denilson Results Last 24 hrs: Microbiology 12/12/20 14:31 Aerobic Blood Culture - Final Blood - Venous - Lab Draw NO GROWTH AFTER 5 DAYS Anaerobic Blood Culture - Final NO GROWTH AFTER 5 DAYS 12/12/20 14:15 Aerobic Blood Culture - Final Blood - Venous Anaerobic Blood Culture - Final NO GROWTH AFTER 5 DAYS Sepsis Event Note - Evaluation Sepsis Screening Result: No Definite Risk - Focused Exam Vital Signs: Vital Signs Temp Pulse Pulse Resp BP Pulse Ox 12/18/20 12:00 96.1 F L 86 22 H 119/79 96 12/18/20 08:01 136 H 12/18/20 06:45 98.1 F 92 18 137/85 95 12/18/20 03:40 98.1 F 89 16 118/85 94 L - Problem List & Annotations (1) Sepsis SNOMED Code(s): 50348981 Code(s): A41.9 - SEPSIS, UNSPECIFIED ORGANISM Status: Resolved Current Visit: Yes Qualifiers: Sepsis type: sepsis due to unspecified organism Sepsis acute organ dysfunction status: without acute organ dysfunction Qualified Code(s): A41.9 - Sepsis, unspecified organism (2) UTI (urinary tract infection) SNOMED Code(s): 08258818 Code(s): N39.0 - URINARY TRACT INFECTION, SITE NOT SPECIFIED Status: Acute Current Visit: Yes (3) Urinary outflow obstruction SNOMED Code(s): 416586165 Code(s): N13.9 - OBSTRUCTIVE AND REFLUX UROPATHY, UNSPECIFIED Status: Acute Current Visit: Yes (4) Community acquired pneumonia SNOMED Code(s): 732911860 Code(s): J18.9 - PNEUMONIA, UNSPECIFIED ORGANISM Status: Acute Current Visit: Yes Qualifiers: Laterality: right Lung location: middle lobe of lung Qualified Code(s): J18.9 - Pneumonia, unspecified organism (5) Subarachnoid hemorrhage SNOMED Code(s): 038986502 Code(s): I60.9 - NONTRAUMATIC SUBARACHNOID HEMORRHAGE, UNSPECIFIED Status: Chronic Current Visit: No (6) Seizure disorder SNOMED Code(s): 528824049 Code(s): G40.909 - EPILEPSY, UNSP, NOT INTRACTABLE, WITHOUT STATUS EPILEPTICUS Status: Acute Current Visit: Yes - Problem List Review Problem List Initiated/Reviewed/Updated: Yes - My Orders Last 24 Hours: My Active Orders 12/18/20 09:00 Aspirin 81 mg PO DAILY 12/18/20 12:00 Diltiazem [Cardizem CD] 360 mg PO DAILY@1200 - Plan Plan:: 74 yo male admitted for sepsis from UTI. 1. UTI with Klebsiella pneumoniae bacteremia: -Continue Levaquin 750 mg p.o. daily 2. CAP -Levaquin as above 3. Afib -Continues to have intermittent A. fib RVR 90 -Change diltiazem to daily dosing of 360 mg monitor blood pressure and heart rate -Digoxin 250 milligrams p.o. daily -Echo reveals left ventricular ejection fraction 60 to 65%, impaired relaxation grade 1 pattern LV diastolic filling mild to left ventricular hypertrophy normal right ventricular size, wall thickness, and systolic function mild aortic valve sclerosis without stenosis. Mild dilation of ascending aorta no regional wall abnormalities and right ventricular systolic pressure is normal - CHADSVACS score 2, patient high risk for bleeding as he recently had SAH. I did run the case by Dr. Zambrano, neurology and results from September head CT after fall and traumatic subarachnoid hemorrhage. Patient also in that CT head chronic subdural hematomas. Her recommendation would be not to anticoagulate d ue to the chronic subdural hematomas with unknown cause. She would recommend at this time aspirin only. - Replace potassium to keep above 4 and Mag above 2 -Outpatient cardiology follow-up established 4.Urinary obstruction: - Rodriguez in place - Urology referral - Continue Flomax - Education on [facility], arrange Home health as well. VTE prophylaxis: SCDs only due to recent SAH CODE STATUS: Full code Dispo: Possible in a.m. heart rate remained stable
[2020-12-18] MEDS ORDERED: Diltiazem 25 MG/5 ML SDV IVPUSH ONE (16:45)
[2020-12-18] MEDS ORDERED: Diltiazem 25 MG/5 ML SDV ONE (16:55)
--- NOTE | 2020-12-18 17:08 | PCM.SN.2 ---
- Free Text/Narrative Note: Rapid response 1640 called. Patient was found unresponsive laying sideways on bed. Telemetry noted HR elevated 180-200s. Blood pressure stable HR jumped between 79-180s afib. Patient slowly became alert, but confused. No weakness to limbs. Patient appears post ictal. Possible seizure activity precipitated event. Will load with Keppra and obtain stat head CT. Given Diltiazem 10 mg for HR. SPoke with Dr Riddle. Labwork obtained, trop CBC and CMP. Due to suspicion of seizure stop Levaquin and Start Ertapenem daily for bacteremia.
[2020-12-18 17:21] LABS: BLOOD UREA NITROGEN,BUN 10 mg/dL (7.0-18.0); CARBON DIOXIDE,CO2 22.8 mmol/L (21.0-32.0); CHLORIDE,CL 103 mmol/L (98-107); GLUCOSE RANDOM 102 mg/dL (74-106); POTASSIUM,K 3.1 mmol/L (3.5-5.1); SODIUM,NA 139 mmol/L (136-148)
[2020-12-18] MEDS ORDERED: Potassium Chloride 10% 20 MEQ/15 ML Soln 30 ML UD Cup PO ONE (18:00)
[2020-12-18] MEDS ORDERED: Potassium Chloride 20 MEQ Tab.ER PO ONE (18:03)
--- NOTE | 2020-12-18 18:24 | CT ---
INDICATION: Change in mental status TECHNIQUE: CT head without contrast. COMPARISON: 10/21/2020 FINDINGS: CSF spaces: Within normal limits for age. Brain parenchyma: The roland-white differentiation is normal. No sign of mass, hemorrhage, or midline shift. Skull base and calvarium: The visualized paranasal sinuses and mastoid air cells demonstrate no acute or significant findings. The visualized orbits are grossly unremarkable. No skull fractures. IMPRESSION: Unremarkable noncontrast head CT. Please note that all CT scans at this facility use dose modulation, iterative reconstruction, and/or weight-based dosing when appropriate to reduce radiation dose to as low as reasonably achievable. Dictated by Konrad Guardado MD @ 12/18/2020 6:23:10 PM (Electronically Signed)
[2020-12-18] MEDS ORDERED: Sodium Chloride 0.9% 500 ML IV ONE (20:15)
[2020-12-18] MEDS: Metoprolol Tartrate 25 MG Tab PO SCH (21:19)
[2020-12-19] MEDS ORDERED: Magnesium Sulfate/Water 2 GM in Premix Bag 1 BAG IV ONE (02:12)
[2020-12-19 06:45] LABS: BLOOD UREA NITROGEN,BUN 7 mg/dL (7.0-18.0); CARBON DIOXIDE,CO2 29.3 mmol/L (21.0-32.0); CHLORIDE,CL 107 mmol/L (98-107); GLUCOSE RANDOM 97 mg/dL (74-106); POTASSIUM,K 3.8 mmol/L (3.5-5.1); SODIUM,NA 143 mmol/L (136-148)
[2020-12-19] MEDS: Digoxin 250 MCG Tab PO SCH (08:26)
[2020-12-19] MEDS: Tamsulosin 0.4 MG Cap.ER PO SCH (08:26)
[2020-12-19] MEDS: Phenytoin 100 MG Cap.ER PO SCH (08:26)
[2020-12-19] MEDS: Acidophilus with Citrus Pectin Tab PO SCH (08:27)
[2020-12-19] MEDS: Metoprolol Tartrate 25 MG Tab PO SCH ×2 (08:27→20:35)
[2020-12-19] MEDS: Aspirin 81 MG Tab.Chew PO SCH (08:27)
[2020-12-19] MEDS ORDERED: Potassium Chloride 20 MEQ Tab.ER PO ONE (09:04)
[2020-12-19] MEDS: Ertapenem 1 GM in Sodium Chloride 0.9% 50 ML IV SCH (09:53)
[2020-12-19] MEDS: Diltiazem 180 MG Cap.CD PO SCH (11:16)
--- NOTE | 2020-12-19 13:42 | PCM.PN ---
- General Info Date of Service: 12/19/20 Admission Dx/Problem (Free Text): Admission Diagnosis/Problem Admission Diagnosis/Problem Acute pyelonephritis Subjective Update: Patient feeling much improved today. Denies any chest pain or shortness of breath. No palpitations, denies chest pain, no further episodes of seizure or altered mental status. Rodriguez remains in place. Patient has been having some intermittent episodes of nonsustained A. fib RVR as well as nonsustained asymptomatic V. tach on telemetry. Functional Status: Reports: Tolerating Diet, Ambulating, Urinating - Review of Systems General: Denies: Fever, Weakness, Fatigue Pulmonary: Denies: Shortness of Breath, Pleuritic Chest Pain, Cough Cardiovascular: Denies: Dyspnea on Exertion Gastrointestinal: Denies: Abdominal Pain, Constipation, Decreased Appetite Genitourinary: Denies: Dysuria, Frequency, Burning Musculoskeletal: Denies: Neck Pain, Shoulder Pain, Arm Pain Skin: Denies: Cyanosis, Jaundice, Mottled - Patient Data Vitals - Most Recent: Last Vital Signs Temp 36.6 C 12/19/20 12:00 Pulse 76 12/19/20 12:00 Resp 18 12/19/20 12:00 BP 137/79 12/19/20 12:00 Pulse Ox 96 12/19/20 12:00 Weight - Most Recent: 71.441 kg I&O - Last 24 Hours: Intake & Output 12/18/20 12/19/20 12/19/20 22:59 06:59 14:59 Intake Total 1100 1600 Output Total 1450 1700 Balance -350 -100 Lab Results Last 24 Hours: Laboratory Results - last 24 hr 12/18/20 12/18/20 12/18/20 Range/Units 16:38 16:42 16:42 WBC 9.96 (4.0-11.0) K/uL RBC 4.68 (4.50-5.90) M/uL Hgb 13.4 (13.0-17.0) g/dL Hct 40.4 (38.0-50.0) % MCV 86.3 (80.0-98.0) fL MCH 28.6 (27.0-32.0) pg MCHC 33.2 (31.0-37.0) g/dL RDW Std Deviation 43.8 (28.0-62.0) fl RDW Coeff of Raquel 14 (11.0-15.0) % Plt Count 242 (150-400) K/uL MPV 9.00 (7.40-12.00) fL Add Manual Diff YES Neutrophils % (Manual) 47 L (48.0-80.0) % Band Neutrophils % 6 % Lymphocytes % (Manual) 39 (16.0-40.0) % Monocytes % (Manual) 7 (0.0-15.0) % Basophils % (Manual) 1 (0.0-1.5) % Metamyelocytes % % Myelocytes % % Nucleated RBC % 0.0 /100WBC Absolute Seg Neuts 4.7 (1.4-5.7) Band Neutrophils # 0.6 Lymphocytes # (Manual) 3.9 H (0.6-2.4) Monocytes # (Manual) 0.7 (0.0-0.8) Basophils # (Manual) 0.1 (0.0-0.1) Absolute Metamyelocyte Absolute Myelocytes Nucleated RBCs # 0 K/uL Sodium 139 (136-148) mmol/L Potassium 3.1 L (3.5-5.1) mmol/L Chloride 103 (98-107) mmol/L Carbon Dioxide 22.8 (21.0-32.0) mmol/L BUN 10 (7.0-18.0) mg/dL Creatinine 1.1 (0.8-1.3) mg/dL Est Cr Clr Drug Dosing 53.28 mL/min Estimated GFR (MDRD) > 60.0 ml/min Glucose 102 (74-106) mg/dL POC Glucose 95 (70-99) mg/dL Calcium 8.3 L (8.5-10.1) mg/dL Magnesium (1.8-2.4) mg/dL Total Bilirubin 0.2 (0.2-1.0) mg/dL AST 43 H (15-37) IU/L ALT 34 (14-63) IU/L Alkaline Phosphatase 136 H (46-116) U/L Troponin I < 0.050 (0.000-0.056) ng/mL Total Protein 7.0 (6.4-8.2) g/dL Albumin 2.2 L (3.4-5.0) g/dL Globulin 4.8 H (2.6-4.0) g/dL Albumin/Globulin Ratio 0.5 L (0.9-1.6) 12/19/20 12/19/20 Range/Units 05:17 05:17 WBC 7.85 (4.0-11.0) K/uL RBC 4.04 L (4.50-5.90) M/uL Hgb 11.5 L (13.0-17.0) g/dL Hct 34.5 L (38.0-50.0) % MCV 85.4 (80.0-98.0) fL MCH 28.5 (27.0-32.0) pg MCHC 33.3 (31.0-37.0) g/dL RDW Std Deviation 43.0 (28.0-62.0) fl RDW Coeff of Raquel 14 (11.0-15.0) % Plt Count 272 (150-400) K/uL MPV 9.20 (7.40-12.00) fL Add Manual Diff YES Neutrophils % (Manual) 65 (48.0-80.0) % Band Neutrophils % 1 % Lymphocytes % (Manual) 17 (16.0-40.0) % Monocytes % (Manual) 10 (0.0-15.0) % Basophils % (Manual) 1 (0.0-1.5) % Metamyelocytes % 3 % Myelocytes % 3 % Nucleated RBC % 0.0 /100WBC Absolute Seg Neuts 5.1 (1.4-5.7) Band Neutrophils # 0.1 Lymphocytes # (Manual) 1.3 (0.6-2.4) Monocytes # (Manual) 0.8 (0.0-0.8) Basophils # (Manual) 0.1 (0.0-0.1) Absolute Metamyelocyte 0.2 Absolute Myelocytes 0.2 Nucleated RBCs # 0 K/uL Sodium 143 (136-148) mmol/L Potassium 3.8 (3.5-5.1) mmol/L Chloride 107 (98-107) mmol/L Carbon Dioxide 29.3 (21.0-32.0) mmol/L BUN 7 (7.0-18.0) mg/dL Creatinine 0.9 (0.8-1.3) mg/dL Est Cr Clr Drug Dosing 65.12 mL/min Estimated GFR (MDRD) > 60.0 ml/min Glucose 97 (74-106) mg/dL POC Glucose (70-99) mg/dL Calcium 8.0 L (8.5-10.1) mg/dL Magnesium 2.2 (1.8-2.4) mg/dL Total Bilirubin (0.2-1.0) mg/dL AST (15-37) IU/L ALT (14-63) IU/L Alkaline Phosphatase (46-116) U/L Troponin I (0.000-0.056) ng/mL Total Protein (6.4-8.2) g/dL Albumin (3.4-5.0) g/dL Globulin (2.6-4.0) g/dL Albumin/Globulin Ratio (0.9-1.6) Med Orders - Current: Current Medications Acetaminophen (Acetaminophen 325 Mg Tab) 650 mg PO Q6H PRN PRN Reason: Pain (Mild 1-3)/fever Last Admin: 12/16/20 21:20 Dose: 650 mg Documented by: Acidophilus/Pectin (Acidophilus With [place] Pectin Tab) 1 tab PO DAILY [facility] Last Admin: 12/19/20 08:27 Dose: 1 tab Documented by: Aspirin (Aspirin 81 Mg Tab.Chew) 81 mg PO DAILY [facility] Last Admin: 12/19/20 08:27 Dose: 81 mg Documented by: Digoxin (Digoxin 250 Mcg Tab) 250 mcg PO DAILY [facility] Last Admin: 12/19/20 08:26 Dose: 250 mcg Documented by: Diltiazem HCl (Diltiazem 180 Mg Cap.Cd) 360 mg PO DAILY@1200 [facility] Last Admin: 12/19/20 11:16 Dose: 360 mg Documented by: Levetiracetam 500 mg/ Dextrose (/Water) 105 mls @ 420 mls/hr IV Q12H [facility] Last Admin: 12/19/20 04:28 Dose: 420 mls/hr Documented by: Ertapenem 1 gm/ Sodium (Chloride) 50 mls @ 100 mls/hr IV Q24H [facility] Last Admin: 12/19/20 09:53 Dose: 100 mls/hr Documented by: Metoprolol Tartrate (Metoprolol Tartrate 25 Mg Tab) 12.5 mg PO Q12H [facility] Last Admin: 12/19/20 08:27 Dose: 12.5 mg Documented by: Phenytoin Sodium (Phenytoin 100 Mg Cap.Er) 100 mg PO DAILY [facility] Last Admin: 12/19/20 08:26 Dose: 100 mg Documented by: Sodium Chloride (Sodium Chloride 0.9% 10 Ml Syringe) 10 ml FLUSH ASDIRECTED PRN PRN Reason: Keep Vein Open Last Admin: 12/12/20 14:30 Dose: 10 ml Documented by: Sodium Chloride (Sodium Chloride 0.9% 2.5 Ml Syringe) 2.5 ml FLUSH ASDIRECTED P RN PRN Reason: Keep Vein Open Last Admin: 12/12/20 14:31 Dose: 2.5 ml Documented by: Tamsulosin HCl (Tamsulosin 0.4 Mg Cap.Er) 0.4 mg PO PCBREAKFAST [facility] Last Admin: 12/19/20 08:26 Dose: 0.4 mg Documented by: Discontinued Medications Acetaminophen (Acetaminophen 500 Mg Tab) 1,000 mg PO ONETIME ONE Stop: 12/12/20 15:39 Last Admin: 12/12/20 15:44 Dose: 1,000 mg Documented by: Azithromycin (Azithromycin 250 Mg Tab) 500 mg PO Q24H [facility] Last Admin: 12/14/20 23:52 Dose: 500 mg Documented by: Digoxin (Digoxin 500 Mcg/2 Ml Amp) 250 mcg IVPUSH ONETIME ONE Stop: 12/16/20 18:25 Last Admin: 12/16/20 18:37 Dose: 250 mcg Documented by: Diltiazem HCl (Diltiazem 25 Mg/5 Ml Sdv) 20 mg IVPUSH ONETIME ONE Stop: 12/16/20 09:12 Last Admin: 12/16/20 09:21 Dose: 20 mg Documented by: Diltiazem HCl (Diltiazem Ir 30 Mg Tab) 30 mg PO Q6HR [facility] Last Admin: 12/16/20 12:06 Dose: Not Given Documented by: Diltiazem HCl (Diltiazem 25 Mg/5 Ml Sdv) 10 mg IVPUSH ONETIME ONE Stop: 12/16/20 11:36 Last Admin: 12/16/20 11:41 Dose: 10 mg Documented by: Diltiazem HCl (Diltiazem Ir 30 Mg Tab) 30 mg PO ONETIME ONE Stop: 12/16/20 11:36 Last Admin: 12/16/20 11:43 Dose: 30 mg Documented by: Diltiazem HCl (Diltiazem Ir 30 Mg Tab) 60 mg PO Q6HR [facility] Last Admin: 12/17/20 11:37 Dose: 60 mg Documented by: Diltiazem HCl (Diltiazem 25 Mg/5 Ml Sdv) 20 mg IVPUSH ONETIME ONE Stop: 12/16/20 18:26 Last Admin: 12/16/20 19:01 Dose: 20 mg Documented by: Diltiazem HCl (Diltiazem 25 Mg/5 Ml Sdv) 10 mg IVPUSH ONETIME ONE Stop: 12/17/20 12:22 Last Admin: 12/17/20 12:29 Dose: 10 mg Documented by: Diltiazem HCl (Diltiazem Ir 30 Mg Tab) 90 mg PO Q6HR [facility] Last Admin: 12/18/20 06:45 Dose: 90 mg Documented by: Diltiazem HCl (Diltiazem 25 Mg/5 Ml Sdv) 10 mg IVPUSH ONETIME ONE Stop: 12/18/20 16:46 Last Admin: 12/18/20 17:06 Dose: 10 mg Documented by: Diltiazem HCl (Diltiazem 25 Mg/5 Ml Sdv) Confirm Administered Dose 25 mg .ROUTE .STK-MED ONE Stop: 12/18/20 16:56 Last Admin: 12/18/20 17:13 Dose: Not Given Documented by: Sodium Chloride (Normal Saline) 1,000 mls @ 999 mls/hr IV STAT ONE Stop: 12/12/20 15:10 Last Admin: 12/12/20 14:30 Dose: 999 mls/hr Documented by: Piperacillin Sod/Tazobactam (Sod 3.375 gm/ Sodium Chloride) 50 mls @ 100 mls/hr IV ONETIME ONE Stop: 12/12/20 15:00 Last Admin: 12/12/20 14:47 Dose: 100 mls/hr Documented by: Vancomycin HCl 1 gm/ Sodium (Chloride) 250 mls @ 166 mls/hr IV ONETIME ONE Stop: 12/12/20 16:18 Last Admin: 12/12/20 15:23 Dose: 166 mls/hr Documented by: Sodium Chloride (Normal Saline) 1,000 mls @ 999 mls/hr IV STAT ONE Stop: 12/12/20 15:48 Last Admin: 12/12/20 15:23 Dose: 999 mls/hr Documented by: Piperacillin Sod/Tazobactam (Sod 3.375 gm/ Sodium Chloride) 50 mls @ 100 mls/hr IV Q6H [facility] Last Admin: 12/15/20 06:21 Dose: 100 mls/hr Documented by: Sodium Chloride (Normal Saline) 1,000 mls @ 125 mls/hr IV ASDIRECTED [facility] Last Admin: 12/15/20 03:48 Dose: 125 mls/hr Documented by: Potassium Chloride/Sodium Chloride (Normal Saline With 40 Meq Kcl) 1,000 mls @ 125 mls/hr IV ONETIME ONE Stop: 12/15/20 16:25 Last Admin: 12/15/20 08:52 Dose: 125 mls/hr Documented by: Magnesium Sulfate 4 gm/ Premix 100 mls @ 33.333 mls/hr IV ONETIME ONE Stop: 12/16/20 11:07 Last Admin: 12/16/20 08:40 Dose: 33.333 mls/hr Documented by: Sodium Chloride (Normal Saline) 500 mls @ 500 mls/hr IV ONETIME ONE Stop: 12/18/20 21:14 Last Admin: 12/18/20 20:16 Dose: 500 mls/hr Documented by: Magnesium Sulfate 2 gm/ Premix 50 mls @ 12.5 mls/hr IV ONETIME ONE Stop: 12/19/20 06:11 Last Admin: 12/19/20 02:27 Dose: 12.5 mls/hr Documented by: Ibuprofen (Ibuprofen 400 Mg Tab) 600 mg PO ONETIME ONE Stop: 12/12/20 20:25 Last Admin: 12/12/20 20:28 Dose: 600 mg Documented by: Iopamidol (Iopamidol 755 Mg/Ml 500 Ml Multipack Bottle) 60 ml IVPUSH ONETIME STA Stop: 12/12/20 17:08 Last Admin: 12/12/20 17:08 Dose: 60 ml Documented by: Levofloxacin (Levofloxacin 750 Mg Tab) 750 mg PO Q24H [facility] Last Admin: 12/18/20 09:54 Dose: 750 mg Documented by: Loperamide HCl (Loperamide 2 Mg Cap) 2 mg PO ONETIME ONE Stop: 12/18/20 13:04 Last Admin: 12/18/20 13:28 Dose: 2 mg Documented by: Potassium Chloride (Potassium Chloride 20 Meq Tab.Er) 40 meq PO ONETIME ONE Stop: 12/15/20 08:26 Last Admin: 12/15/20 08:51 Dose: 40 meq Documented by: Potassium Chloride (Potassium Chloride 20 Meq Tab.Er) 40 meq PO ONETIME ONE Stop: 12/15/20 14:01 Last Admin: 12/15/20 13:26 Dose: 40 meq Documented by: Potassium Chloride (Potassium Chloride 20 Meq Tab.Er) 40 meq PO ONETIME ONE Stop: 12/16/20 10:52 Last Admin: 12/16/20 11:43 Dose: 40 meq Documented by: Potassium Chloride (Potassium Chloride 20 Meq Tab.Er) 40 meq PO ONETIME ONE Stop: 12/18/20 18:04 Last Admin: 12/18/20 18:16 Dose: 40 meq Documented by: Potassium Chloride (Potassium Chloride 20 Meq Tab.Er) 40 meq PO ONETIME ONE Stop: 12/19/20 09:05 Last Admin: 12/19/20 09:53 Dose: 40 meq Documented by: - Exam General: Alert, Oriented, Cooperative, No Acute Distress Lungs: Clear to Auscultation, Normal Respiratory Effort Cardiovascular: Regular Rate, Regular Rhythm GI/Abdominal Exam: Normal Bowel Sounds, Soft, Non-Tender - Patient Data Lab Results Last 24 hrs: Laboratory Results - last 24 hr 12/18/20 12/18/20 12/18/20 Range/Units 16:38 16:42 16:42 WBC 9.96 (4.0-11.0) K/uL RBC 4.68 (4.50-5.90) M/uL Hgb 13.4 (13.0-17.0) g/dL Hct 40.4 (38.0-50.0) % MCV 86.3 (80.0-98.0) fL MCH 28.6 (27.0-32.0) pg MCHC 33.2 (31.0-37.0) g/dL RDW Std Deviation 43.8 (28.0-62.0) fl RDW Coeff of Raquel 14 (11.0-15.0) % Plt Count 242 (150-400) K/uL MPV 9.00 (7.40-12.00) fL Add Manual Diff YES Neutrophils % (Manual) 47 L (48.0-80.0) % Band Neutrophils % 6 % Lymphocytes % (Manual) 39 (16.0-40.0) % Monocytes % (Manual) 7 (0.0-15.0) % Basophils % (Manual) 1 (0.0-1.5) % Metamyelocytes % % Myelocytes % % Nucleated RBC % 0.0 /100WBC Absolute Seg Neuts 4.7 (1.4-5.7) Band Neutrophils # 0.6 Lymphocytes # (Manual) 3.9 H (0.6-2.4) Monocytes # (Manual) 0.7 (0.0-0.8) Basophils # (Manual) 0.1 (0.0-0.1) Absolute Metamyelocyte Absolute Myelocytes Nucleated RBCs # 0 K/uL Sodium 139 (136-148) mmol/L Potassium 3.1 L (3.5-5.1) mmol/L Chloride 103 (98-107) mmol/L Carbon Dioxide 22.8 (21.0-32.0) mmol/L BUN 10 (7.0-18.0) mg/dL Creatinine 1.1 (0.8-1.3) mg/dL Est Cr Clr Drug Dosing 53.28 mL/min Estimated GFR (MDRD) > 60.0 ml/min Glucose 102 (74-106) mg/dL POC Glucose 95 (70-99) mg/dL Calcium 8.3 L (8.5-10.1) mg/dL Magnesium (1.8-2.4) mg/dL Total Bilirubin 0.2 (0.2-1.0) mg/dL AST 43 H (15-37) IU/L ALT 34 (14-63) IU/L Alkaline Phosphatase 136 H (46-116) U/L Troponin I < 0.050 (0.000-0.056) ng/mL Total Protein 7.0 (6.4-8.2) g/dL Albumin 2.2 L (3.4-5.0) g/dL Globulin 4.8 H (2.6-4.0) g/dL Albumin/Globulin Ratio 0.5 L (0.9-1.6) 12/19/20 12/19/20 Range/Units 05:17 05:17 WBC 7.85 (4.0-11.0) K/uL RBC 4.04 L (4.50-5.90) M/uL Hgb 11.5 L (13.0-17.0) g/dL Hct 34.5 L (38.0-50.0) % MCV 85.4 (80.0-98.0) fL MCH 28.5 (27.0-32.0) pg MCHC 33.3 (31.0-37.0) g/dL RDW Std Deviation 43.0 (28.0-62.0) fl RDW Coeff of Raquel 14 (11.0-15.0) % Plt Count 272 (150-400) K/uL MPV 9.20 (7.40-12.00) fL Add Manual Diff YES Neutrophils % (Manual) 65 (48.0-80.0) % Band Neutrophils % 1 % Lymphocytes % (Manual) 17 (16.0-40.0) % Monocytes % (Manual) 10 (0.0-15.0) % Basophils % (Manual) 1 (0.0-1.5) % Metamyelocytes % 3 % Myelocytes % 3 % Nucleated RBC % 0.0 /100WBC Absolute Seg Neuts 5.1 (1.4-5.7) Band Neutrophils # 0.1 Lymphocytes # (Manual) 1.3 (0.6-2.4) Monocytes # (Manual) 0.8 (0.0-0.8) Basophils # (Manual) 0.1 (0.0-0.1) Absolute Metamyelocyte 0.2 Absolute Myelocytes 0.2 Nucleated RBCs # 0 K/uL Sodium 143 (136-148) mmol/L Potassium 3.8 (3.5-5.1) mmol/L Chloride 107 (98-107) mmol/L Carbon Dioxide 29.3 (21.0-32.0) mmol/L BUN 7 (7.0-18.0) mg/dL Creatinine 0.9 (0.8-1.3) mg/dL Est Cr Clr Drug Dosing 65.12 mL/min Estimated GFR (MDRD) > 60.0 ml/min Glucose 97 (74-106) mg/dL POC Glucose (70-99) mg/dL Calcium 8.0 L (8.5-10.1) mg/dL Magnesium 2.2 (1.8-2.4) mg/dL Total Bilirubin (0.2-1.0) mg/dL AST (15-37) IU/L ALT (14-63) IU/L Alkaline Phosphatase (46-116) U/L Troponin I (0.000-0.056) ng/mL Total Protein (6.4-8.2) g/dL Albumin (3.4-5.0) g/dL Globulin (2.6-4.0) g/dL Albumin/Globulin Ratio (0.9-1.6) Result Diagrams: 12/19/20 05:17 12/19/20 05:17 Sepsis Event Note - Evaluation Sepsis Screening Result: No Definite Risk - Focused Exam Vital Signs: Vital Signs Temp Pulse Pulse Resp BP BP Pulse Ox 12/19/20 12:00 36.6 C 76 18 137/79 96 12/19/20 08:27 90 127/72 12/19/20 08:26 90 12/19/20 07:36 36.6 C 63 16 127/72 95 12/19/20 04:18 36.4 C 63 16 113/65 93 L - Problem List & Annotations (1) Atrial fib/flutter, transient SNOMED Code(s): 509570262 Code(s): UOI1890 - Status: Acute Current Visit: Yes (2) NSVT (nonsustained ventricular tachycardia) SNOMED Code(s): 369206672 Code(s): I47.2 - VENTRICULAR TACHYCARDIA Status: Acute Current Visit: Yes (3) Acute pyelonephritis SNOMED Code(s): 77349251 Code(s): N10 - ACUTE PYELONEPHRITIS Status: Acute Current Visit: Yes (4) Community acquired pneumonia SNOMED Code(s): 066744685 Code(s): J18.9 - PNEUMONIA, UNSPECIFIED ORGANISM Status: Acute Current Visit: Yes Qualifiers: Laterality: right Lung location: middle lobe of lung Qualified Code(s): J18.9 - Pneumonia, unspecified organism (5) Seizure disorder SNOMED Code(s): 481249670 Code(s): G40.909 - EPILEPSY, UNSP, NOT INTRACTABLE, WITHOUT STATUS EPILEPTICUS Status: Acute Current Visit: Yes (6) UTI (urinary tract infection) SNOMED Code(s): 67016311 Code(s): N39.0 - URINARY TRACT INFECTION, SITE NOT SPECIFIED Status: Acute Current Visit: Yes (7) Urinary outflow obstruction SNOMED Code(s): 834091394 Code(s): N13.9 - OBSTRUCTIVE AND REFLUX UROPATHY, UNSPECIFIED Status: Acute Current Visit: Yes (8) Subdural hematoma SNOMED Code(s): 101050800 Code(s): S06.5X9A - TRAUM SUBDR HEM W LOC OF UNSP DURATION, INIT Status: Acute Current Visit: No - Problem List Review Problem List Initiated/Reviewed/Updated: Yes - My Orders Last 24 Hours: My Active Orders 12/18/20 21:00 Metoprolol Tartrate [Lopressor] 12.5 mg PO Q12H - Plan Plan:: 74 yo male admitted for sepsis from UTI. 1. UTI with Klebsiella pneumoniae bacteremia: -Culture and sensitivity noted, Levaquin has been stopped due to patient's breakthrough seizure as it decreases the seizure threshold, patient has been switched to IV ertapenem, based on cultures will likely switch patient to oral Augmentin. 2. CAP -As above 3. Afib -Continues to have intermittent A. fib RVR 90 to 140 at home lasting few seconds -Continue Cardizem 360 mg monitor blood pressure and heart rate -Digoxin 250 milligrams p.o. daily, continue metoprolol tartrate 12.5 twice daily which has seemed to significantly help with episodes of A. fib RVR as well as nonsustained V. tach, patient is completely asymptomatic during his nonsustained V. tach episodes, already started on a beta-kelvin for opti mization. If patient becomes symptomatic may need to be started on amiodarone as well as outpatient cardiology follow-up -Echo reveals left ventricular ejection fraction 60 to 65%, impaired relaxation grade 1 pattern LV diastolic filling mild to left ventricular hypertrophy normal right ventricular size, wall thickness, and systolic function mild aortic valve sclerosis without stenosis. Mild dilation of ascending aorta no regional wall abnormalities and right ventricular systolic pressure is normal - CHADSVACS score 2, patient high risk for bleeding as he recently had SAH. I did run the case by Dr. Zambrano, neurology and results from September head CT after fall and traumatic subarachnoid hemorrhage. Patient also in that CT head chronic subdural hematomas. Her recommendation would be not to anticoagulate due to the chronic subdural hematomas with unknown cause. She would recommend at this time aspirin only. - Replace potassium to keep above 4 and Mag above 2 -Outpatient cardiology follow-up established 4.Urinary obstruction: - Rodriguez in place - Urology referral - Continue Flomax - Education on [facility], arrange Home health as well. VTE prophylaxis: SCDs only due to recent SAH CODE STATUS: Full code Dispo: Possible DC in a.m.
[2020-12-20] MEDS: Acetaminophen 325 MG Tab PO PRN (03:09)
[2020-12-20 08:31] LABS: BLOOD UREA NITROGEN,BUN 5 mg/dL (7.0-18.0); CARBON DIOXIDE,CO2 29.2 mmol/L (21.0-32.0); CHLORIDE,CL 107 mmol/L (98-107); GLUCOSE RANDOM 83 mg/dL (74-106); POTASSIUM,K 4.2 mmol/L (3.5-5.1); SODIUM,NA 142 mmol/L (136-148)
[2020-12-20] MEDS: Phenytoin 100 MG Cap.ER PO SCH (09:03)
[2020-12-20] MEDS: Metoprolol Tartrate 25 MG Tab PO SCH (09:03)
[2020-12-20] MEDS: Digoxin 250 MCG Tab PO SCH (09:04)
[2020-12-20] MEDS: Acidophilus with Citrus Pectin Tab PO SCH (09:04)
[2020-12-20] MEDS: Tamsulosin 0.4 MG Cap.ER PO SCH (09:05)
[2020-12-20] MEDS: Aspirin 81 MG Tab.Chew PO SCH (09:05)
[2020-12-20] MEDS: Ertapenem 1 GM in Sodium Chloride 0.9% 50 ML IV SCH (11:19)
[2020-12-20] MEDS: Diltiazem 180 MG Cap.CD PO SCH (11:22)
--- NOTE | 2020-12-20 13:14 | PCM.DCSUM1 ---
Discharge Summary - Hospital Course Diagnosis: Stroke: No - Discharge Data Discharge Disposition: Home, W Home Health Agency 06 Condition: Stable - Referral to Home Health Date of Face to Face Encounter: 12/15/20 Reason for Homebound Status: Patient is homebound as he is unable to drive and needs assistance of caregiver as well as assistive device to make it to medical appointments and to leave the home. Primary Care Physician: Jana Allen MD Skilled Need: Yakov the need of fpc to help monitor appropriate medication management along with Rodriguez catheter cares and Rodriguez catheter change out every 30 days. Patient is in need of physical therapy to evaluate and treat for unsteady gait in need of walker. He would also benefit from occupational therapy to evaluate and treat for monitoring the ability to complete ADLs as well as home safety evaluation. - Discharge Diagnosis/Problem(s) (1) Atrial fib/flutter, transient SNOMED Code(s): 498376245 ICD Code: [id number] - Status: Acute Current Visit: Yes (2) NSVT (nonsustained ventricular tachycardia) SNOMED Code(s): 704619756 ICD Code: I47.2 - VENTRICULAR TACHYCARDIA Status: Acute Current Visit: Yes (3) Acute pyelonephritis SNOMED Code(s): 16298444 ICD Code: N10 - ACUTE PYELONEPHRITIS Status: Acute Current Visit: Yes (4) Community acquired pneumonia SNOMED Code(s): 342078572 ICD Code: J18.9 - PNEUMONIA, UNSPECIFIED ORGANISM Status: Acute Current Visit: Yes Qualifiers: Laterality: right Lung location: middle lobe of lung Qualified Code(s): J18.9 - Pneumonia, unspecified organism (5) Seizure disorder SNOMED Code(s): 142821643 ICD Code: G40.909 - EPILEPSY, UNSP, NOT INTRACTABLE, WITHOUT STATUS EPI LEPTICUS Status: Acute Current Visit: Yes (6) UTI (urinary tract infection) SNOMED Code(s): 55539923 ICD Code: N39.0 - URINARY TRACT INFECTION, SITE NOT SPECIFIED Status: Acute Current Visit: Yes (7) Urinary outflow obstruction SNOMED Code(s): 836760830 ICD Code: N13.9 - OBSTRUCTIVE AND REFLUX UROPATHY, UNSPECIFIED Status: Acute Current Visit: Yes (8) Subdural hematoma SNOMED Code(s): 642246390 ICD Code: S06.5X9A - TRAUM SUBDR HEM W LOC OF UNSP DURATION, INIT Status: Acute Current Visit: No - Patient Summary/Data Consults: Consultations 12/14/20 07:55 PT Evaluation and Treatment [CONS] Routine 12/18/20 16:22 Consult to Home Health [CONS] Routine - Patient Instructions Diet: Regular Diet as Tolerated Activity: No Strenuous Activities, Rest and Relax Today Driving: Do Not Drive Showering/Bathing: May Shower Notify Provider of: Fever, Increased Pain, Swelling and Redness, Drainage, Nausea and/or Vomiting Other/Special Instructions: rodriguez catheter cares, to be change every 30 days. Home health to assist with this. - Discharge Plan *PRESCRIPTION DRUG MONITORING PROGRAM REVIEWED*: Not Applicable *COPY OF PRESCRIPTION DRUG MONITORING REPORT IN PATIENT [place]: Not Applicable Prescriptions/Med Rec: L. Acidophilus/Pectin, Bruni [Acidophilus Capsule] 1 each PO DAILY #10 capsule Aspirin 81 mg PO DAILY #30 tab.chew Amoxicillin/Clavulanate K [Augmentin 500-125 MG] 1 tab PO Q12H 5 Days #10 tablet dilTIAZem HCL [Cardizem Cd] 360 mg PO DAILY #30 cap.er.24h Digoxin [Digox] 250 mcg PO DAILY #30 tablet Tamsulosin [Flomax] 0.4 mg PO PCBREAKFAST #30 cap.er Metoprolol Tartrate [Lopressor] 12.5 mg PO Q12H #60 tablet Home Medications: Home Meds Phenytoin Sodium Extended [Dilantin] 100 mg PO DAILY 10/12/18 [History] Diclofenac Sodium [Voltaren] 0 mg PO WITHBREAKFAST 09/21/20 [History] Amoxicillin/Clavulanate K [Augmentin 500-125 MG] 1 tab PO Q12H 5 Days #10 tablet 12/20/20 [Rx] Aspirin 81 mg PO DAILY #30 tab.chew 12/20/20 [Rx] Digoxin [Digox] 250 mcg PO DAILY #30 tablet 12/20/20 [Rx] L. Acidophilus/Pectin, Bruni [Acidophilus Capsule] 1 each PO DAILY #10 capsule 12/20/20 [Rx] Metoprolol Tartrate [Lopressor] 12.5 mg PO Q12H #60 tablet 12/20/20 [Rx] Tamsulosin [Flomax] 0.4 mg PO PCBREAKFAST #30 cap.er 12/20/20 [Rx] dilTIAZem HCL [Cardizem Cd] 360 mg PO DAILY #30 cap.er.24h 12/20/20 [Rx] Oxygen Therapy Mode: Room Air Patient Handouts: Indwelling Urinary Catheter Care, Adult, Pyelonephritis, Adult, [id number], Seizure, Adult, [id number] Referrals: Serena Pastor DO [Ordering Only Provider] - 12/29/20 11:45 am () Ofelia Diaz MD [Physician] - Belle Jameson NP [Ordering Only Provider] - 12/23/20 10:00 am - Patient Data Vitals - Most Recent: Last Vital Signs Temp 37.0 C 12/20/20 11: Pulse 63 12/20/20 11:21 Resp 16 12/20/20 11:21 BP 119/70 12/20/20 11: Pulse Ox 94 L 12/20/20 11:21 Weight - Most Recent: 71.441 kg I&O - Last 24 hours: Intake & Output 12/19/20 12/20/20 12/20/20 22:59 06:59 14:59 Intake Total 950 1190 Output Total 1450 1750 Balance -500 -560 Lab Results - Last 24 hrs: Laboratory Results - last 24 hr 12/20/20 12/20/20 Range/Units 07:35 07:35 WBC 8.85 (4.0-11.0) K/uL RBC 4.20 L (4.50-5.90) M/uL Hgb 12.0 L (13.0-17.0) g/dL Hct 36.3 L (38.0-50.0) % MCV 86.4 (80.0-98.0) fL MCH 28.6 (27.0-32.0) pg MCHC 33.1 (31.0-37.0) g/dL RDW Std Deviation 44.0 (28.0-62.0) fl RDW Coeff of Raquel 14 (11.0-15.0) % Plt Count 283 (150-400) K/uL MPV 8.80 (7.40-12.00) fL Add Manual Diff YES Neutrophils % (Manual) 68 (48.0-80.0) % Lymphocytes % (Manual) 18 (16.0-40.0) % Monocytes % (Manual) 7 (0.0-15.0) % Eosinophils % (Manual) 3 (0.0-7.0) % Basophils % (Manual) 1 (0.0-1.5) % Metamyelocytes % 2 % Myelocytes % 1 % Nucleated RBC % 0.0 /100WBC Absolute Seg Neuts 6.0 H (1.4-5.7) Lymphocytes # (Manual) 1.6 (0.6-2.4) Monocytes # (Manual) 0.6 (0.0-0.8) Eosinophils # (Manual) 0.3 (0.0-0.7) Basophils # (Manual) 0.1 (0.0-0.1) Absolute Metamyelocyte 0.2 Absolute Myelocytes 0.1 Nucleated RBCs # 0 K/uL Sodium 142 (136-148) mmol/L Potassium 4.2 (3.5-5.1) mmol/L Chloride 107 (98-107) mmol/L Carbon Dioxide 29.2 (21.0-32.0) mmol/L BUN 5 L (7.0-18.0) mg/dL Creatinine 0.9 (0.8-1.3) mg/dL Est Cr Clr Drug Dosing 65.12 mL/min Estimated GFR (MDRD) > 60.0 ml/min Glucose 83 (74-106) mg/dL Calcium 8.0 L (8.5-10.1) mg/dL Phosphorus 4.3 (2.6-4.7) mg/dL Magnesium 2.0 (1.8-2.4) mg/dL Med Orders - Current: Current Medications Acetaminophen (Acetaminophen 325 Mg Tab) 650 mg PO Q6H PRN PRN Reason: Pain (Mild 1-3)/fever Last Admin: 12/20/20 03:09 Dose: 650 mg Documented by: Acidophilus/Pectin (Acidophilus With Bruni Pectin Tab) 1 tab PO DAILY [facility] Last Admin: 12/20/20 09:04 Dose: 1 tab Documented by: Aspirin (Aspirin 81 Mg Tab.Chew) 81 mg PO DAILY [facility] Last Admin: 12/20/20 09:05 Dose: 81 mg Documented by: Digoxin (Digoxin 250 Mcg Tab) 250 mcg PO DAILY [facility] Last Admin: 12/20/20 09:04 Dose: 250 mcg Documented by: Diltiazem HCl (Diltiazem 180 Mg Cap.Cd) 360 mg PO DAILY@1200 [facility] Last Admin: 12/20/20 11:22 Dose: 360 mg Documented by: Levetiracetam 500 mg/ Dextrose (/Water) 105 mls @ 420 mls/hr IV Q12H [facility] Last Admin: 12/20/20 05:07 Dose: 420 mls/hr Documented by: Ertapenem 1 gm/ Sodium (Chloride) 50 mls @ 100 mls/hr IV Q24H [facility] Last Admin: 12/20/20 11:19 Dose: 100 mls/hr Documented by: Metoprolol Tartrate (Metoprolol Tartrate 25 Mg Tab) 12.5 mg PO Q12H [facility] Last Admin: 12/20/20 09:03 Dose: 12.5 mg Documented by: Phenytoin Sodium (Phenytoin 100 Mg Cap.Er) 100 mg PO DAILY [facility] Last Admin: 12/20/20 09:03 Dose: 100 mg Documented by: Sodium Chloride (Sodium Chloride 0.9% 10 Ml Syringe) 10 ml FLUSH ASDIRECTED PRN PRN Reason: Keep Vein Open Last Admin: 12/12/20 14:30 Dose: 10 ml Documented by: Sodium Chloride (Sodium Chloride 0.9% 2.5 Ml Syringe) 2.5 ml FLUSH ASDIRECTED PRN PRN Reason: Keep Vein Open Last Admin: 12/12/20 14:31 Dose: 2.5 ml Documented by: Tamsulosin HCl (Tamsulosin 0.4 Mg Cap.Er) 0.4 mg PO PCBREAKFAST [facility] Last Admin: 12/20/20 09:05 Dose: 0.4 mg Documented by: Discontinued Medications Acetaminophen (Acetaminophen 500 Mg Tab) 1,000 mg PO ONETIME ONE Stop: 12/12/20 15:39 Last Admin: 12/12/20 15:44 Dose: 1,000 mg Documented by: Azithromycin (Azithromycin 250 Mg Tab) 500 mg PO Q24H [facility] Last Admin: 12/14/20 23:52 Dose: 500 mg Documented by: Digoxin (Digoxin 500 Mcg/2 Ml Amp) 250 mcg IVPUSH ONETIME ONE Stop: 12/16/20 18:25 Last Admin: 12/16/20 18:37 Dose: 250 mcg Documented by: Diltiazem HCl (Diltiazem 25 Mg/5 Ml Sdv) 20 mg IVPUSH ONETIME ONE Stop: 12/16/20 09:12 Last Admin: 12/16/20 09:21 Dose: 20 mg Documented by: Diltiazem HCl (Diltiazem Ir 30 Mg Tab) 30 mg PO Q6HR [facility] Last Admin: 12/16/20 12:06 Dose: Not Given Documented by: Diltiazem HCl (Diltiazem 25 Mg/5 Ml Sdv) 10 mg IVPUSH ONETIME ONE Stop: 12/16/20 11:36 Last Admin: 12/16/20 11:41 Dose: 10 mg Documented by: Diltiazem HCl (Diltiazem Ir 30 Mg Tab) 30 mg PO ONETIME ONE Stop: 12/16/20 11:36 Last Admin: 12/16/20 11:43 Dose: 30 mg Documented by: Diltiazem HCl (Diltiazem Ir 30 Mg Tab) 60 mg PO Q6HR [facility] Last Admin: 12/17/20 11:37 Dose: 60 mg Documented by: Diltiazem HCl (Diltiazem 25 Mg/5 Ml Sdv) 20 mg IVPUSH ONETIME ONE Stop: 12/16/20 18:26 Last Admin: 12/16/20 19:01 Dose: 20 mg Documented by: Diltiazem HCl (Diltiazem 25 Mg/5 Ml Sdv) 10 mg IVPUSH ONETIME ONE Stop: 12/17/20 12:22 Last Admin: 12/17/20 12:29 Dose: 10 mg Documented by: Diltiazem HCl (Diltiazem Ir 30 Mg Tab) 90 mg PO Q6HR [facility] Last Admin: 12/18/20 06:45 Dose: 90 mg Documented by: Diltiazem HCl (Diltiazem 25 Mg/5 Ml Sdv) 10 mg IVPUSH ONETIME ONE Stop: 12/18/20 16:46 Last Admin: 12/18/20 17:06 Dose: 10 mg Documented by: Diltiazem HCl (Diltiazem 25 Mg/5 Ml Sdv) Confirm Administered Dose 25 mg .ROUTE .STK-MED ONE Stop: 12/18/20 16:56 Last Admin: 12/18/20 17:13 Dose: Not Given Documented by: Sodium Chloride (Normal Saline) 1,000 mls @ 999 mls/hr IV STAT ONE Stop: 12/12/20 15:10 Last Admin: 12/12/20 14:30 Dose: 999 mls/hr Documented by: Piperacillin Sod/Tazobactam (Sod 3.375 gm/ Sodium Chloride) 50 mls @ 100 mls/hr IV ONETIME ONE Stop: 12/12/20 15:00 Last Admin: 12/12/20 14:47 Dose: 100 mls/hr Documented by: Vancomycin HCl 1 gm/ Sodium (Chloride) 250 mls @ 166 mls/hr IV ONETIME ONE Stop: 12/12/20 16:18 Last Admin: 12/12/20 15:23 Dose: 166 mls/hr Documented by: Sodium Chloride (Normal Saline) 1,000 mls @ 999 mls/hr IV STAT ONE Stop: 12/12/20 15:48 Last Admin: 12/12/20 15:23 Dose: 999 mls/hr Documented by: Piperacillin Sod/Tazobactam (Sod 3.375 gm/ Sodium Chloride) 50 mls @ 100 mls/hr IV Q6H [facility] Last Admin: 12/15/20 06:21 Dose: 100 mls/hr Documented by: Sodium Chloride (Normal Saline) 1,000 mls @ 125 mls/hr IV ASDIRECTED [facility] Last Admin: 12/15/20 03:48 Dose: 125 mls/hr Documented by: Potassium Chloride/Sodium Chloride (Normal Saline With 40 Meq Kcl) 1,000 mls @ 125 mls/hr IV ONETIME ONE Stop: 12/15/20 16:25 Last Admin: 12/15/20 08:52 Dose: 125 mls/hr Documented by: Magnesium Sulfate 4 gm/ Premix 100 mls @ 33.333 mls/hr IV ONETIME ONE Stop: 12/16/20 11:07 Last Admin: 12/16/20 08:40 Dose: 33.333 mls/hr Documented by: Sodium Chloride (Normal Saline) 500 mls @ 500 mls/hr IV ONETIME ONE Stop: 12/18/20 21:14 Last Admin: 12/18/20 20:16 Dose: 500 mls/hr Documented by: Magnesium Sulfate 2 gm/ Premix 50 mls @ 12.5 mls/hr IV ONETIME ONE Stop: 12/19/20 06:11 Last Admin: 12/19/20 02:27 Dose: 12.5 mls/hr Documented by: Ibuprofen (Ibuprofen 400 Mg Tab) 600 mg PO ONETIME ONE Stop: 12/12/20 20:25 Last Admin: 12/12/20 20:28 Dose: 600 mg Documented by: Iopamidol (Iopamidol 755 Mg/Ml 500 Ml Multipack Bottle) 60 ml IVPUSH ONETIME STA Stop: 12/12/20 17:08 Last Admin: 12/12/20 17:08 Dose: 60 ml Documented by: Levofloxacin (Levofloxacin 750 Mg Tab) 750 mg PO Q24H [facility] Last Admin: 12/18/20 09:54 Dose: 750 mg Documented by: Loperamide HCl (Loperamide 2 Mg Cap) 2 mg PO ONETIME ONE Stop: 12/18/20 13:04 Last Admin: 12/18/20 13:28 Dose: 2 mg Documented by: Potassium Chloride (Potassium Chloride 20 Meq Tab.Er) 40 meq PO ONETIME ONE Stop: 12/15/20 08:26 Last Admin: 12/15/20 08:51 Dose: 40 meq Documented by: Potassium Chloride (Potassium Chloride 20 Meq Tab.Er) 40 meq PO ONETIME ONE Stop: 12/15/20 14:01 Last Admin: 12/15/20 13:26 Dose: 40 meq Documented by: Potassium Chloride (Potassium Chloride 20 Meq Tab.Er) 40 meq PO ONETIME ONE Stop: 12/16/20 10:52 Last Admin: 12/16/20 11:43 Dose: 40 meq Documented by: Potassium Chloride (Potassium Chloride 20 Meq Tab.Er) 40 meq PO ONETIME ONE Stop: 12/18/20 18:04 Last Admin: 12/18/20 18:16 Dose: 40 meq Documented by: Potassium Chloride (Potassium Chloride 20 Meq Tab.Er) 40 meq PO ONETIME ONE Stop: 12/19/20 09:05 Last Admin: 12/19/20 09:53 Dose: 40 meq Documented by: *Q Meaningful Use (DIS) - VTE *Q VTE Anticoagulation Contraindications: Medical/Procedure Contrai
--- NOTE | 2020-12-21 15:45 | ECHO ---
EXAM DATE: 12/12/20 PATIENT'S AGE: 74 The ECHO report has been scanned into [employer] and can be seen in this patient's EMR (Electronic Medical Record) under the REPORTS section. The report has also been scanned into PACS. NICKO
== END 2020-12-20 13:58 | disposition home health service (06) | DRG 871 ==
LOC: MW.ED 09:52 → EDBD 09:52 → MW.MS 20:16 → EDBD 20:16 → MW.MS 21:03
PROVIDERS: ADMIT Internal Medicine; ATTEND Internal Medicine
DX: A41.9 Sepsis, unspecified organism (principal); A41.59 Other Gram-negative sepsis; J18.9 Pneumonia, unspecified organism; N17.9 Acute kidney failure, unspecified; I48.92 Unspecified atrial flutter; I47.2 Ventricular tachycardia; N10 Acute pyelonephritis; N13.8 Other obstructive and reflux uropathy; Z20.822 Contact with and (suspected) exposure to COVID-19; N13.9 Obstructive and reflux uropathy, unspecified; E87.6 Hypokalemia; G40.909 Epilepsy, unspecified, not intractable, without status epilepticus; I48.91 Unspecified atrial fibrillation; S06.5X9D Traumatic subdural hemorrhage with loss of consciousness of unspecified duration, subsequent encounter; Z93.6 Other artificial openings of urinary tract status; Z79.899 Other long term (current) drug therapy
CPT/HCPCS: 74177; 80053; 81001; 83605; 83690; 85025; 87040 ×2; 87077; 87086; 87088; 87150; 87186 ×2; 96365; 96366; 96367; 99285; A9270; J2543; J3370; J7030 ×2; J7050; Q9967; U0002; 36415; 70450; 70450-26; 71045; 71045-26; 80048; 82947; 83735; 84100; 84132; 84484; 87324; 93005; 93306; 97161-GP; 99284; J1160; J1335; J1953; J3475; J3480; J3490; J7040

== ENCOUNTER 2022-02-02 19:34 | Emergency (ER) | payer MEDICARE, MEDICAID ==
[2022-02-02] MEDS ORDERED: Sodium Chloride 0.9% 1,000 ML IV ONE (19:40)
[2022-02-02 20:11] LABS: CARBON DIOXIDE,CO2 27.6 mmol/L (21.0-32.0); POTASSIUM,K 3.2 mmol/L (3.5-5.1)
[2022-02-02] MEDS ORDERED: cefTRIAXone 1 GM in Sodium Chloride 0.9% 50 ML IV ONE (20:56)
== END 2022-02-02 21:55 | disposition home or self-care (01) ==
LOC: MW.ED 19:34
DX: G40.909 Epilepsy, unspecified, not intractable, without status epilepticus (principal); N39.0 Urinary tract infection, site not specified; Z79.899 Other long term (current) drug therapy; Z79.82 Long term (current) use of aspirin
CPT/HCPCS: 36415; 70450; 80053; 81001; 85025; 87086; 99284; J0696; J7030

== ENCOUNTER 2022-06-06 19:23 | Emergency (ER) | payer MEDICARE, MEDICAID ==
[2022-06-06] MEDS ORDERED: Sodium Chloride 0.9% 1,000 ML IV ONE ×2 (19:31→20:42)
[2022-06-06 20:07] LABS: CARBON DIOXIDE,CO2 25.8 mmol/L (21.0-32.0); POTASSIUM,K 3.8 mmol/L (3.5-5.1)
[2022-06-06] MEDS ORDERED: cefTRIAXone 1 GM in Sodium Chloride 0.9% 50 ML IV ONE (21:03)
== END 2022-06-06 21:42 | disposition home or self-care (01) ==
LOC: MW.ED 19:23
DX: G40.909 Epilepsy, unspecified, not intractable, without status epilepticus (principal); N39.0 Urinary tract infection, site not specified; I10 Essential (primary) hypertension; Z79.82 Long term (current) use of aspirin; Z20.822 Contact with and (suspected) exposure to COVID-19
CPT/HCPCS: 36415; 70450; 72125; 80053; 80305; 80307; 81001; 82550; 83605; 83735; 84484; 85025; 93005; 96361; 96365; 96375; 99284; J0696; J1953; J7030; J7050; J7060; U0002; 93010; 99283

== ENCOUNTER 2022-07-29 22:29 | Emergency (ER) | payer MEDICARE, MEDICAID ==
[2022-07-29] MEDS ORDERED: Sodium Chloride 0.9% 2.5 ML Syringe FLUSH PRN (22:41)
[2022-07-29] MEDS ORDERED: Sodium Chloride 0.9% 10 ML Syringe FLUSH PRN (22:41)
[2022-07-29] MEDS ORDERED: Sodium Chloride 0.9% 1,000 ML IV ONE (22:42)
[2022-07-29 22:58] LABS: CARBON DIOXIDE,CO2 25.5 mmol/L (21.0-32.0); POTASSIUM,K 3.5 mmol/L (3.5-5.1)
[2022-07-30] MEDS ORDERED: Phenytoin 100 MG Cap.ER PO STA (00:28)
[2022-07-30] MEDS ORDERED: Phenytoin 100 MG Cap.ER PO SCH (00:30)
== END 2022-07-30 00:42 | disposition home or self-care (01) ==
LOC: MW.ED 22:29
DX: G40.909 Epilepsy, unspecified, not intractable, without status epilepticus (principal)
CPT/HCPCS: 36415; 80053; 80185; 80305; 82550; 85025; 93005; 96360; 99284; A9270; J3490; J7030; 93010; 99283

== ENCOUNTER 2022-08-02 21:25 | Emergency (ER) | payer MEDICARE, MEDICAID ==
[2022-08-02] MEDS ORDERED: Sodium Chloride 0.9% 10 ML Syringe FLUSH PRN (22:24)
[2022-08-02] MEDS ORDERED: Sodium Chloride 0.9% 2.5 ML Syringe FLUSH PRN (22:24)
[2022-08-02] MEDS ORDERED: Fosphenytoin 1,000 MG.PE in Sodium Chloride 0.9% 50 ML IV ONE (22:25)
[2022-08-02 22:50] LABS: BLOOD UREA NITROGEN,BUN 9 mg/dL (7.0-18.0); CARBON DIOXIDE,CO2 24.9 mmol/L (21.0-32.0); CHLORIDE,CL 103 mmol/L (98-107); GLUCOSE RANDOM 122 mg/dL (74-106); POTASSIUM,K 3.4 mmol/L (3.5-5.1); SODIUM,NA 142 mmol/L (136-148)
[2022-08-02 22:51] LABS: ESTIMATED GFR 77 mL/min (>60)
== END 2022-08-03 00:08 | disposition home or self-care (01) ==
LOC: MW.ED 21:25
DX: G40.909 Epilepsy, unspecified, not intractable, without status epilepticus (principal)
CPT/HCPCS: 36415; 80053; 80185; 80307; 83735; 84100; 85025; 93005; 96365; 99284; J3490; Q2009; 93010; 99291

== ENCOUNTER 2022-08-22 22:00 | Emergency (ER) | payer MEDICARE, MEDICAID ==
[2022-08-22] MEDS ORDERED: Sodium Chloride 0.9% 1,000 ML IV ONE (22:03)
[2022-08-22] MEDS ORDERED: Fosphenytoin 1,000 MG.PE in Sodium Chloride 0.9% 50 ML IV ONE (22:05)
[2022-08-22 22:17] LABS: BASOPHILS PERCENT AUTO 0.4 % (0.0-1.5); EOSINOPHILS ABSOLUTE AUTO 0.1 K/uL (0.0-0.7); EOSINOPHILS PERCENT AUTO 0.9 % (0.0-7.0); HEMATOCRIT 40.6 % (38.0-50.0); HEMOGLOBIN 13.5 g/dL (13.0-17.0); LYMPHOCYTES ABSOLUTE AUTO 2.7 K/uL (0.6-2.4); LYMPHOCYTES PERCENT AUTO 34.5 % (16.0-40.0); MEAN CORPUSCULAR HEMOGLOBIN 28.5 pg (27.0-32.0); MEAN CORPUSCULAR HGB CONC 33.3 g/dL (31.0-37.0); MEAN CORPUSCULAR VOLUME 85.8 fL (80.0-98.0); MONOCYTES ABSOLUTE AUTO 0.9 K/uL (0.0-0.8); MONOCYTES PERCENT AUTO 11.3 % (0.0-15.0); NEUTROPHILS ABSOLUTE AUTO 4.1 K/uL (1.4-5.7); NEUTROPHILS PERCENT AUTO 52.9 % (48.0-80.0); NRBC ABSOLUTE 0 K/uL; PLATELET COUNT,PLT 177 K/uL (150-400); RED BLOOD CELL COUNT 4.73 M/uL (4.50-5.90); WHITE BLOOD CELL COUNT,WBC 7.79 K/uL (4.0-11.0)
[2022-08-22 22:47] LABS: ALBUMIN 3.4 g/dL (3.4-5.0); BILIRUBIN TOTAL 0.4 mg/dL (0.2-1.0); CALCIUM 8.7 mg/dL (8.5-10.1); CARBON DIOXIDE,CO2 27.2 mmol/L (21.0-32.0); EST CRCL DRUG DOSING (CG) 56.92 mL/min; PROTEIN TOTAL,TP 6.8 g/dL (6.4-8.2)
[2022-08-22] MEDS ORDERED: Potassium Chloride 20 MEQ Tab.ER PO ONE (22:50)
[2022-08-22 23:04] LABS: APPEARANCE,URINE SLT CLOUDY; BILIRUBIN,URINE NEGATIVE (NEGATIVE); COLOR,URINE YELLOW; GLUCOSE,URINE NEGATIVE (NEGATIVE); KETONES,URINE NEGATIVE (NEGATIVE); LEUKOCYTE ESTERASE,URINE MODERATE (NEGATIVE); NITRITE,URINE POSITIVE (NEGATIVE); OCCULT BLOOD,URINE TRACE-INTACT (NEGATIVE); PH,URINE 5.5 (5.0-8.0); PROTEIN,URINE NEGATIVE (NEGATIVE); UROBILINOGEN,URINE 0.2 EU/dL (<2.0)
[2022-08-22] MEDS ORDERED: cefTRIAXone 1 GM in Sodium Chloride 0.9% 50 ML IV ONE (23:07)
[2022-08-22 23:11] LABS: BACTERIA,URINE 4+ (NEGATIVE); EPITHELIAL CELLS,URINE MODERATE (NONE-FEW); RBC,URINE 0-2 (0-2/HPF); WBC,URINE 16-22 (0-5/HPF)
[2022-08-22 23:12] LABS: AMORPHOUS SEDIMENT,URINE MANY (NEGATIVE)
== END 2022-08-23 00:49 | disposition home or self-care (01) ==
LOC: MW.ED 22:00
DX: G40.909 Epilepsy, unspecified, not intractable, without status epilepticus (principal); Z79.899 Other long term (current) drug therapy
CPT/HCPCS: 36415; 80053; 80185; 81001; 83605; 83735; 85025; 93005; 96365; 96367; 99285; A9270; J0696; J3490; J7030; Q2009; 93010; 99283

== ENCOUNTER 2023-12-19 17:30 | Inpatient (IN) | payer MEDICARE, MEDICAID, OTHER ==
[2023-12-19 17:38] LABS: BASOPHILS ABSOLUTE AUTO 0.04 K/uL (0.00-0.20); BASOPHILS PERCENT AUTO 0.5 % (0.0-1.0); EOSINOPHILS ABSOLUTE AUTO 0.17 K/uL (0.00-0.45); HEMATOCRIT 36.8 % (42.0-52.0); HEMOGLOBIN 12.3 g/dL (14.0-18.0); IMMATURE GRAN ABSOLUTE AUTO 0.04 K/uL (0.00-0.05); IMMATURE GRAN PERCENT AUTO 0.5 % (0.0-0.4); LYMPHOCYTES ABSOLUTE AUTO 1.99 K/uL (1.00-4.80); LYMPHOCYTES PERCENT AUTO 23.5 % (24.0-44.0); MEAN CORPUSCULAR HEMOGLOBIN 29.4 pg (28.0-32.0); MEAN CORPUSCULAR HGB CONC 33.4 g/dL (32.0-36.0); MONOCYTES ABSOLUTE AUTO 0.75 K/uL (0.00-0.80); MONOCYTES PERCENT AUTO 8.9 % (0.0-8.0); NEUTROPHILS ABSOLUTE AUTO 5.47 K/uL (1.80-7.70); NEUTROPHILS PERCENT AUTO 64.6 % (41.0-71.0); PLATELET COUNT,PLT 180 K/uL (150-400); RED BLOOD CELL COUNT 4.18 M/uL (4.52-5.90); WHITE BLOOD CELL COUNT,WBC 8.46 K/uL (3.9-11.3)
[2023-12-19] MEDS: Sodium Chloride 0.9% 1,000 ML IV ONE (17:43)
[2023-12-19 18:08] LABS: A/G RATIO 0.8 (0.9-1.6); ALANINE AMINOTRANSFERASE,ALT 45 IU/L (14-63); ALBUMIN 3.1 g/dL (3.4-5.0); ALKALINE PHOSPHATASE 186 U/L (46-116); ASPARTATE AMNIOTRANSFERASE,AST 23 IU/L (15-37); BILIRUBIN TOTAL 0.2 mg/dL (0.2-1.0); BLOOD UREA NITROGEN,BUN 15 mg/dL (7.0-18.0); CALCIUM 8.1 mg/dL (8.5-10.1); CARBON DIOXIDE,CO2 29.6 mmol/L (21.0-32.0); CHLORIDE,CL 102 mmol/L (98-107); ESTIMATED GFR 77 mL/min (>60); ETHANOL BLOOD MEDICAL < 3.0 mg/dL; GLUCOSE RANDOM 137 mg/dL (74-106); LIPASE 35 U/L (16-77); MAGNESIUM 1.8 mg/dL (1.8-2.4); POTASSIUM,K 3.4 mmol/L (3.5-5.1); PROTEIN TOTAL,TP 6.9 g/dL (6.4-8.2); SODIUM,NA 138 mmol/L (136-148)
[2023-12-19] MEDS: LORazepam 2 MG/ML SDV IVPUSH ONE (20:00)
[2023-12-19] MEDS: LORazepam 2 MG/ML SDV ONE (20:01)
[2023-12-19] MEDS: Fosphenytoin 1,000 MG.PE in Sodium Chloride 0.9% 50 ML IV ONE (20:12)
[2023-12-19] MEDS: SODIUM CHLORIDE 0.9% IV ONE (20:47)
[2023-12-19] MEDS: PHENYTOIN IV ONE (20:47)
[2023-12-20] MEDS: Potassium Chloride 20 MEQ Tab.ER PO ONE (01:05)
[2023-12-20 03:51] LABS: APPEARANCE,URINE CLOUDY; BILIRUBIN,URINE NEGATIVE (NEGATIVE); COLOR,URINE YELLOW; GLUCOSE,URINE NEGATIVE (NEGATIVE); KETONES,URINE NEGATIVE (NEGATIVE); LEUKOCYTE ESTERASE,URINE MODERATE (NEGATIVE); NITRITE,URINE POSITIVE (NEGATIVE); OCCULT BLOOD,URINE MODERATE (NEGATIVE); PH,URINE 6.5 (5.0-8.0); PROTEIN,URINE TRACE mg/dL (NEGATIVE); UROBILINOGEN,URINE 0.2 EU/dL (<2.0)
[2023-12-20 03:57] LABS: BACTERIA,URINE 1+ (NEGATIVE); EPITHELIAL CELLS,URINE OCCASIONAL (NONE-FEW); MUCUS,URINE NOT SEEN (NONE-MOD); WBC,URINE TOO NUMEROUS TO CT (0-5/HPF)
[2023-12-20 04:01] LABS: AMPHETAMINES SCREEN, URINE NEGATIVE (CUTOFF=500); BARBITURATE SCREEN,URINE PRESUMPTIVE POSITIVE (CUTOFF=200); BENZODIAZEPINES SCREEN,URINE PRESUMPTIVE POSITIVE (CUTOFF=150); BUPRENORPHINE SCREEN,URINE NEGATIVE (CUTOFF=10); METHADONE SCREEN, URINE NEGATIVE (CUTOFF=200); METHAMPHETAMINES SCREEN, URINE NEGATIVE (CUTOFF=500); OXYCODONE SCREEN,URINE NEGATIVE (CUT0FF=100); PCP SCREEN,URINE NEGATIVE (CUTOFF=25); THC SCREEN,URINE 20 NG/ML NEGATIVE (CUTOFF=50)
[2023-12-20 05:46] LABS: BASOPHILS ABSOLUTE AUTO 0.04 K/uL (0.00-0.20); BASOPHILS PERCENT AUTO 0.4 % (0.0-1.0); EOSINOPHILS ABSOLUTE AUTO 0.07 K/uL (0.00-0.45); EOSINOPHILS PERCENT AUTO 0.7 % (0.0-6.0); HEMATOCRIT 35.7 % (42.0-52.0); HEMOGLOBIN 11.9 g/dL (14.0-18.0); IMMATURE GRAN ABSOLUTE AUTO 0.04 K/uL (0.00-0.05); IMMATURE GRAN PERCENT AUTO 0.4 % (0.0-0.4); LYMPHOCYTES ABSOLUTE AUTO 1.76 K/uL (1.00-4.80); LYMPHOCYTES PERCENT AUTO 16.8 % (24.0-44.0); MEAN CORPUSCULAR HEMOGLOBIN 29.3 pg (28.0-32.0); MEAN CORPUSCULAR HGB CONC 33.3 g/dL (32.0-36.0); MEAN CORPUSCULAR VOLUME 87.9 fL (83.0-99.0); MEAN PLATELET VOLUME 9.2 fL (9.4-12.4); MONOCYTES ABSOLUTE AUTO 0.92 K/uL (0.00-0.80); MONOCYTES PERCENT AUTO 8.8 % (0.0-8.0); NEUTROPHILS ABSOLUTE AUTO 7.63 K/uL (1.80-7.70); NEUTROPHILS PERCENT AUTO 72.9 % (41.0-71.0); PLATELET COUNT,PLT 173 K/uL (150-400); RED BLOOD CELL COUNT 4.06 M/uL (4.52-5.90); WHITE BLOOD CELL COUNT,WBC 10.46 K/uL (3.9-11.3)
[2023-12-20 06:09] LABS: CALCIUM 8.1 mg/dL (8.5-10.1); CARBON DIOXIDE,CO2 31.6 mmol/L (21.0-32.0); CREATININE 0.9 mg/dL (0.8-1.3); EST CRCL DRUG DOSING (CG) 66.55 mL/min; POTASSIUM,K 3.9 mmol/L (3.5-5.1)
[2023-12-20] MEDS: SODIUM CHLORIDE IV SCH ×2 (07:52→10:39)
[2023-12-20] MEDS: [UNRECOGNIZED DRUG - OTHER] IV SCH ×2 (07:52→10:39)
[2023-12-20] MEDS: FOSPHENYTOIN IV SCH ×2 (07:52→10:39)
[2023-12-20] MEDS: Phenytoin 100 MG Cap.ER PO SCH (11:01)
[2023-12-21 11:24] LABS: BASOPHILS ABSOLUTE AUTO 0.04 K/uL (0.00-0.20); BASOPHILS PERCENT AUTO 0.4 % (0.0-1.0); EOSINOPHILS ABSOLUTE AUTO 0.07 K/uL (0.00-0.45); EOSINOPHILS PERCENT AUTO 0.8 % (0.0-6.0); HEMATOCRIT 40.6 % (42.0-52.0); HEMOGLOBIN 13.7 g/dL (14.0-18.0); IMMATURE GRAN ABSOLUTE AUTO 0.02 K/uL (0.00-0.05); IMMATURE GRAN PERCENT AUTO 0.2 % (0.0-0.4); LYMPHOCYTES ABSOLUTE AUTO 1.08 K/uL (1.00-4.80); LYMPHOCYTES PERCENT AUTO 11.6 % (24.0-44.0); MEAN CORPUSCULAR HEMOGLOBIN 29.5 pg (28.0-32.0); MEAN CORPUSCULAR HGB CONC 33.7 g/dL (32.0-36.0); MEAN CORPUSCULAR VOLUME 87.3 fL (83.0-99.0); MEAN PLATELET VOLUME 8.7 fL (9.4-12.4); MONOCYTES ABSOLUTE AUTO 0.94 K/uL (0.00-0.80); MONOCYTES PERCENT AUTO 10.1 % (0.0-8.0); NEUTROPHILS ABSOLUTE AUTO 7.14 K/uL (1.80-7.70); NEUTROPHILS PERCENT AUTO 76.9 % (41.0-71.0); PLATELET COUNT,PLT 173 K/uL (150-400); RED BLOOD CELL COUNT 4.65 M/uL (4.52-5.90); WHITE BLOOD CELL COUNT,WBC 9.29 K/uL (3.9-11.3)
[2023-12-21 11:46] LABS: CALCIUM 8.5 mg/dL (8.5-10.1); CARBON DIOXIDE,CO2 30.3 mmol/L (21.0-32.0); CREATININE 0.8 mg/dL (0.8-1.3); EST CRCL DRUG DOSING (CG) 73.6 mL/min; POTASSIUM,K 3.4 mmol/L (3.5-5.1)
[2023-12-21] MEDS: Tamsulosin 0.4 MG Cap.ER PO SCH (21:00)
[2023-12-22] MEDS: Tamsulosin 0.4 MG Cap.ER PO SCH (04:04)
[2023-12-22 05:31] LABS: BASOPHILS ABSOLUTE AUTO 0.06 K/uL (0.00-0.20); BASOPHILS PERCENT AUTO 0.5 % (0.0-1.0); EOSINOPHILS ABSOLUTE AUTO 0.08 K/uL (0.00-0.45); EOSINOPHILS PERCENT AUTO 0.7 % (0.0-6.0); HEMATOCRIT 42.7 % (42.0-52.0); HEMOGLOBIN 14.3 g/dL (14.0-18.0); IMMATURE GRAN ABSOLUTE AUTO 0.05 K/uL (0.00-0.05); IMMATURE GRAN PERCENT AUTO 0.4 % (0.0-0.4); LYMPHOCYTES ABSOLUTE AUTO 2.17 K/uL (1.00-4.80); LYMPHOCYTES PERCENT AUTO 19.2 % (24.0-44.0); MEAN CORPUSCULAR HEMOGLOBIN 29.4 pg (28.0-32.0); MEAN CORPUSCULAR HGB CONC 33.5 g/dL (32.0-36.0); MEAN CORPUSCULAR VOLUME 87.9 fL (83.0-99.0); MEAN PLATELET VOLUME 8.7 fL (9.4-12.4); MONOCYTES ABSOLUTE AUTO 1.45 K/uL (0.00-0.80); MONOCYTES PERCENT AUTO 12.8 % (0.0-8.0); NEUTROPHILS ABSOLUTE AUTO 7.48 K/uL (1.80-7.70); NEUTROPHILS PERCENT AUTO 66.4 % (41.0-71.0); PLATELET COUNT,PLT 191 K/uL (150-400); RED BLOOD CELL COUNT 4.86 M/uL (4.52-5.90); WHITE BLOOD CELL COUNT,WBC 11.29 K/uL (3.9-11.3)
[2023-12-22 05:53] LABS: CALCIUM 8.8 mg/dL (8.5-10.1); CARBON DIOXIDE,CO2 32.3 mmol/L (21.0-32.0); EST CRCL DRUG DOSING (CG) 58.88 mL/min; POTASSIUM,K 3.6 mmol/L (3.5-5.1)
[2023-12-22] MEDS: cefTRIAXone 2 GM in Sodium Chloride 0.9% 50 ML IV SCH (21:41)
[2023-12-23 00:13] LABS: APPEARANCE,URINE CLEAR; BILIRUBIN,URINE NEGATIVE (NEGATIVE); COLOR,URINE YELLOW; GLUCOSE,URINE NEGATIVE (NEGATIVE); KETONES,URINE NEGATIVE (NEGATIVE); LEUKOCYTE ESTERASE,URINE MODERATE (NEGATIVE); NITRITE,URINE NEGATIVE (NEGATIVE); OCCULT BLOOD,URINE LARGE (NEGATIVE); PROTEIN,URINE 30 mg/dL (NEGATIVE); UROBILINOGEN,URINE 0.2 EU/dL (<2.0)
[2023-12-23 00:20] LABS: BACTERIA,URINE 4+ (NEGATIVE); EPITHELIAL CELLS,URINE FEW (NONE-FEW); WBC,URINE TOO NUMEROUS TO CT (0-5/HPF)
[2023-12-23 14:10] LABS: CORONAVIRUS COVID-19 NAA NEGATIVE (NEGATIVE); INFLUENZA A NAA NEGATIVE (NEGATIVE); INFLUENZA B NAA NEGATIVE (NEGATIVE)
[2023-12-23 15:36] LABS: BASOPHILS ABSOLUTE AUTO 0.07 K/uL (0.00-0.20); BASOPHILS PERCENT AUTO 0.7 % (0.0-1.0); EOSINOPHILS ABSOLUTE AUTO 0.25 K/uL (0.00-0.45); EOSINOPHILS PERCENT AUTO 2.4 % (0.0-6.0); HEMATOCRIT 38.1 % (42.0-52.0); HEMOGLOBIN 12.6 g/dL (14.0-18.0); IMMATURE GRAN ABSOLUTE AUTO 0.04 K/uL (0.00-0.05); IMMATURE GRAN PERCENT AUTO 0.4 % (0.0-0.4); LYMPHOCYTES ABSOLUTE AUTO 1.63 K/uL (1.00-4.80); LYMPHOCYTES PERCENT AUTO 15.5 % (24.0-44.0); MEAN CORPUSCULAR HEMOGLOBIN 29.4 pg (28.0-32.0); MEAN CORPUSCULAR HGB CONC 33.1 g/dL (32.0-36.0); MONOCYTES ABSOLUTE AUTO 1.26 K/uL (0.00-0.80); NEUTROPHILS ABSOLUTE AUTO 7.29 K/uL (1.80-7.70); PLATELET COUNT,PLT 163 K/uL (150-400); RED BLOOD CELL COUNT 4.28 M/uL (4.52-5.90); WHITE BLOOD CELL COUNT,WBC 10.54 K/uL (3.9-11.3)
[2023-12-23 15:53] LABS: CALCIUM 8.2 mg/dL (8.5-10.1); CARBON DIOXIDE,CO2 32.4 mmol/L (21.0-32.0); CREATININE 1.2 mg/dL (0.8-1.3); EST CRCL DRUG DOSING (CG) 48.36 mL/min; POTASSIUM,K 3.9 mmol/L (3.5-5.1)
[2023-12-24 06:13] LABS: BASOPHILS ABSOLUTE AUTO 0.05 K/uL (0.00-0.20); BASOPHILS PERCENT AUTO 0.8 % (0.0-1.0); EOSINOPHILS ABSOLUTE AUTO 0.22 K/uL (0.00-0.45); EOSINOPHILS PERCENT AUTO 3.4 % (0.0-6.0); HEMATOCRIT 36.7 % (42.0-52.0); HEMOGLOBIN 12.1 g/dL (14.0-18.0); IMMATURE GRAN ABSOLUTE AUTO 0.04 K/uL (0.00-0.05); IMMATURE GRAN PERCENT AUTO 0.6 % (0.0-0.4); LYMPHOCYTES ABSOLUTE AUTO 1.39 K/uL (1.00-4.80); LYMPHOCYTES PERCENT AUTO 21.3 % (24.0-44.0); MEAN CORPUSCULAR HEMOGLOBIN 29.1 pg (28.0-32.0); MEAN CORPUSCULAR VOLUME 88.2 fL (83.0-99.0); MEAN PLATELET VOLUME 9.1 fL (9.4-12.4); MONOCYTES ABSOLUTE AUTO 0.84 K/uL (0.00-0.80); MONOCYTES PERCENT AUTO 12.9 % (0.0-8.0); NEUTROPHILS ABSOLUTE AUTO 3.99 K/uL (1.80-7.70); PLATELET COUNT,PLT 179 K/uL (150-400); RED BLOOD CELL COUNT 4.16 M/uL (4.52-5.90); WHITE BLOOD CELL COUNT,WBC 6.53 K/uL (3.9-11.3)
[2023-12-24 06:39] LABS: CALCIUM 7.9 mg/dL (8.5-10.1); CARBON DIOXIDE,CO2 30.3 mmol/L (21.0-32.0); CREATININE 0.9 mg/dL (0.8-1.3); EST CRCL DRUG DOSING (CG) 64.48 mL/min; POTASSIUM,K 2.9 mmol/L (3.5-5.1)
[2023-12-24] MEDS: Potassium Chloride 20 MEQ Tab.ER PO ONE (14:26)
[2023-12-25 09:23] LABS: BASOPHILS ABSOLUTE AUTO 0.04 K/uL (0.00-0.20); BASOPHILS PERCENT AUTO 0.6 % (0.0-1.0); EOSINOPHILS ABSOLUTE AUTO 0.17 K/uL (0.00-0.45); EOSINOPHILS PERCENT AUTO 2.5 % (0.0-6.0); HEMATOCRIT 37.7 % (42.0-52.0); HEMOGLOBIN 12.5 g/dL (14.0-18.0); IMMATURE GRAN ABSOLUTE AUTO 0.03 K/uL (0.00-0.05); IMMATURE GRAN PERCENT AUTO 0.4 % (0.0-0.4); LYMPHOCYTES ABSOLUTE AUTO 1.42 K/uL (1.00-4.80); LYMPHOCYTES PERCENT AUTO 20.6 % (24.0-44.0); MEAN CORPUSCULAR HEMOGLOBIN 29.4 pg (28.0-32.0); MEAN CORPUSCULAR HGB CONC 33.2 g/dL (32.0-36.0); MEAN CORPUSCULAR VOLUME 88.7 fL (83.0-99.0); MEAN PLATELET VOLUME 8.8 fL (9.4-12.4); MONOCYTES ABSOLUTE AUTO 0.78 K/uL (0.00-0.80); MONOCYTES PERCENT AUTO 11.3 % (0.0-8.0); NEUTROPHILS ABSOLUTE AUTO 4.45 K/uL (1.80-7.70); NEUTROPHILS PERCENT AUTO 64.6 % (41.0-71.0); PLATELET COUNT,PLT 202 K/uL (150-400); RED BLOOD CELL COUNT 4.25 M/uL (4.52-5.90); WHITE BLOOD CELL COUNT,WBC 6.89 K/uL (3.9-11.3)
[2023-12-25 09:59] LABS: CALCIUM 8.7 mg/dL (8.5-10.1); CARBON DIOXIDE,CO2 32.3 mmol/L (21.0-32.0); CREATININE 0.9 mg/dL (0.8-1.3); EST CRCL DRUG DOSING (CG) 64.48 mL/min; POTASSIUM,K 4.2 mmol/L (3.5-5.1)
== END 2023-12-25 12:10 | disposition home or self-care (01) | DRG 101 ==
LOC: MW.ED 17:30 → MW.MS 23:04 → OBSVTOIN 12-21 10:22
PROVIDERS: ADMIT Internal Medicine; ATTEND Internal Medicine
DX: R56.9 Unspecified convulsions (principal); Z75.8 Other problems related to medical facilities and other health care; G40.909 Epilepsy, unspecified, not intractable, without status epilepticus; N30.00 Acute cystitis without hematuria; R26.9 Unspecified abnormalities of gait and mobility; Z91.148 Patient's other noncompliance with medication regimen for other reason; Z79.899 Other long term (current) drug therapy
CPT/HCPCS: 0240U; 36415; 51701; 51798; 70450; 71045; 72125; 80048; 80053; 80185; 80305; 80307; 81001; 83690; 83735; 84484; 85025; 87086; 93005; 96361; 96365; 96375; 97110; 97116; 97162; 97530; 99285; 93010; 99222; 99231; 99232; 99238; 99284; A9270-GY; G0378; J0696; J1165; J2060; J3490; J7030; J7050

== ENCOUNTER 2025-02-05 04:34 | Inpatient (IN) | payer MEDICARE, MEDICAID, OTHER ==
[2025-02-05 05:10] LABS: BASOPHILS ABSOLUTE AUTO 0.08 K/uL (0.00-0.20); BASOPHILS PERCENT AUTO 1.4 % (0.0-1.0); EOSINOPHILS ABSOLUTE AUTO 0.26 K/uL (0.00-0.45); EOSINOPHILS PERCENT AUTO 4.5 % (0.0-6.0); IMMATURE GRAN ABSOLUTE AUTO 0.02 K/uL (0.00-0.05); IMMATURE GRAN PERCENT AUTO 0.3 % (0.0-0.4); LYMPHOCYTES ABSOLUTE AUTO 1.44 K/uL (1.00-4.80); LYMPHOCYTES PERCENT AUTO 25.0 % (24.0-44.0); MEAN PLATELET VOLUME 9.7 fL (9.4-12.4); MONOCYTES ABSOLUTE AUTO 0.52 K/uL (0.00-0.80); MONOCYTES PERCENT AUTO 9.0 % (0.0-8.0); NEUTROPHILS ABSOLUTE AUTO 3.44 K/uL (1.80-7.70); NEUTROPHILS PERCENT AUTO 59.8 % (41.0-71.0); NRBC ABSOLUTE 0.00 K/uL (0.00-0.02); NRBC PERCENT 0.0 /100WBC (0.0-0.2); PLATELET COUNT,PLT 175 K/uL (150-400); RED BLOOD CELL COUNT 4.42 M/uL (4.52-5.90); WHITE BLOOD CELL COUNT,WBC 5.76 K/uL (3.9-11.3)
[2025-02-05 05:16] LABS: BASE EXCESS VENOUS 4.4 (-2.0-3.0); BICARBONATE,VENOUS 31.0 mEq/L (22-29); PCO2 VENOUS 52.0 mmHG (41-51); PH,VENOUS 7.38 (7.32-7.43); PO2 VENOUS 27.0 mmHG (35-45)
[2025-02-05 05:22] LABS: INR 1.18 (0.86-1.11)
[2025-02-05 05:40] LABS: A/G RATIO 0.9 (0.9-1.6); ALANINE AMINOTRANSFERASE,ALT 15.0 IU/L (14-63); ASPARTATE AMNIOTRANSFERASE,AST 20.0 IU/L (15-37); BILIRUBIN TOTAL 0.4 mg/dL (0.2-1.0); BLOOD UREA NITROGEN,BUN 13.0 mg/dL (7.0-18.0); CARBON DIOXIDE,CO2 32.9 mmol/L (21.0-32.0); CHLORIDE,CL 105.0 mmol/L (98-107); CREATININE 0.9 mg/dL (0.8-1.3); EST CRCL DRUG DOSING (CG) 55.08 mL/min; ESTIMATED GFR 86.0 mL/min (>60); GLUCOSE RANDOM 81.0 mg/dL (74-106); POTASSIUM,K 3.8 mmol/L (3.5-5.1); PRO B-TYPE NATRIUR PEPT,BNPPRO 136.0 pg/mL (0-450); PROTEIN TOTAL,TP 6.8 g/dL (6.4-8.2); SODIUM,NA 141.0 mmol/L (136-148)
[2025-02-05 05:57] LABS: ETHANOL BLOOD MEDICAL <3 mg/dL
[2025-02-05 05:58] LABS: CREATINE KINASE,CK 158 U/L (26-308)
[2025-02-05 06:10] LABS: IRON,FE 44.0 ug/dL (50-175); PERCENT FE SATURATION 26.83 % (20-55)
[2025-02-05] MEDS: Iopamidol 755 MG/ML 500 ML Multipack Bottle IVPUSH STA (06:16)
[2025-02-05] MEDS: Sodium Chloride 0.9% 2.5 ML Syringe FLUSH PRN (06:53)
[2025-02-05] MEDS: Sodium Chloride 0.9% 10 ML Syringe FLUSH PRN (06:53)
[2025-02-05 09:20] LABS: APPEARANCE,URINE CLOUDY; GLUCOSE,URINE NEGATIVE (NEGATIVE); OCCULT BLOOD,URINE MODERATE (NEGATIVE)
[2025-02-05 09:31] LABS: AMPHETAMINES SCREEN, URINE NEGATIVE (CUTOFF=500); BUPRENORPHINE SCREEN,URINE NEGATIVE (CUTOFF=10); METHADONE SCREEN, URINE NEGATIVE (CUTOFF=200); METHAMPHETAMINES SCREEN, URINE NEGATIVE (CUTOFF=500); OXYCODONE SCREEN,URINE NEGATIVE (CUT0FF=100); PCP SCREEN,URINE NEGATIVE (CUTOFF=25); THC SCREEN,URINE 20 NG/ML NEGATIVE (CUTOFF=50)
[2025-02-05 09:37] LABS: EPITHELIAL CELLS,URINE MODERATE (NONE-FEW)
[2025-02-05] MEDS: cefTRIAXone 2 GM in Water For Injection, Sterile 20 ML IVPUSH ONE (11:57)
[2025-02-05] MEDS ORDERED: Sodium Chloride 0.9% 10 ML Syringe FLUSH PRN (12:00)
[2025-02-05] MEDS ORDERED: Ondansetron 4 MG/2 ML SDV IVPUSH PRN (12:00)
[2025-02-05] MEDS ORDERED: Sodium Chloride 0.9% 2.5 ML Syringe FLUSH PRN (12:00)
[2025-02-05] MEDS: Heparin Sodium 5,000 Units/ML Vial SUBCUT SCH (12:43)
[2025-02-05] MEDS: Phenytoin 100 MG Cap.ER PO SCH (15:11)
[2025-02-06 05:43] LABS: BASOPHILS ABSOLUTE AUTO 0.05 K/uL (0.00-0.20); BASOPHILS PERCENT AUTO 0.7 % (0.0-1.0); EOSINOPHILS ABSOLUTE AUTO 0.28 K/uL (0.00-0.45); EOSINOPHILS PERCENT AUTO 4.2 % (0.0-6.0); IMMATURE GRAN ABSOLUTE AUTO 0.03 K/uL (0.00-0.05); IMMATURE GRAN PERCENT AUTO 0.4 % (0.0-0.4); LYMPHOCYTES ABSOLUTE AUTO 1.24 K/uL (1.00-4.80); LYMPHOCYTES PERCENT AUTO 18.5 % (24.0-44.0); MEAN PLATELET VOLUME 9.7 fL (9.4-12.4); MONOCYTES ABSOLUTE AUTO 0.46 K/uL (0.00-0.80); MONOCYTES PERCENT AUTO 6.9 % (0.0-8.0); NEUTROPHILS ABSOLUTE AUTO 4.63 K/uL (1.80-7.70); NEUTROPHILS PERCENT AUTO 69.3 % (41.0-71.0); NRBC ABSOLUTE 0.00 K/uL (0.00-0.02); NRBC PERCENT 0.0 /100WBC (0.0-0.2); PLATELET COUNT,PLT 182 K/uL (150-400); RED BLOOD CELL COUNT 4.16 M/uL (4.52-5.90); WHITE BLOOD CELL COUNT,WBC 6.69 K/uL (3.9-11.3)
[2025-02-06 06:01] LABS: BLOOD UREA NITROGEN,BUN 12.0 mg/dL (7.0-18.0); CARBON DIOXIDE,CO2 28.8 mmol/L (21.0-32.0); CHLORIDE,CL 107.0 mmol/L (98-107); CREATININE 0.9 mg/dL (0.8-1.3); EST CRCL DRUG DOSING (CG) 51.44 mL/min; GLUCOSE RANDOM 151.0 mg/dL (74-106); PHOSPHORUS 2.4 mg/dL (2.6-4.7); POTASSIUM,K 3.2 mmol/L (3.5-5.1); SODIUM,NA 141.0 mmol/L (136-148)
[2025-02-06 06:02] LABS: ESTIMATED GFR 86.0 mL/min (>60)
[2025-02-06] MEDS: cefTRIAXone 1 GM in Water For Injection, Sterile 10 ML IVPUSH SCH (09:26)
[2025-02-06] MEDS: Potassium Chloride 20 MEQ Tab.ER PO ONE (10:22)
[2025-02-06] MEDS: Phosphorus #1 250 MG Tab PO SCH (10:24)
[2025-02-07 05:44] LABS: BASOPHILS ABSOLUTE AUTO 0.04 K/uL (0.00-0.20); BASOPHILS PERCENT AUTO 0.6 % (0.0-1.0); EOSINOPHILS ABSOLUTE AUTO 0.25 K/uL (0.00-0.45); EOSINOPHILS PERCENT AUTO 4.0 % (0.0-6.0); IMMATURE GRAN ABSOLUTE AUTO 0.03 K/uL (0.00-0.05); IMMATURE GRAN PERCENT AUTO 0.5 % (0.0-0.4); LYMPHOCYTES ABSOLUTE AUTO 1.15 K/uL (1.00-4.80); LYMPHOCYTES PERCENT AUTO 18.5 % (24.0-44.0); MEAN PLATELET VOLUME 9.6 fL (9.4-12.4); MONOCYTES ABSOLUTE AUTO 0.57 K/uL (0.00-0.80); MONOCYTES PERCENT AUTO 9.2 % (0.0-8.0); NEUTROPHILS ABSOLUTE AUTO 4.16 K/uL (1.80-7.70); NEUTROPHILS PERCENT AUTO 67.2 % (41.0-71.0); NRBC ABSOLUTE 0.00 K/uL (0.00-0.02); NRBC PERCENT 0.0 /100WBC (0.0-0.2); PLATELET COUNT,PLT 160 K/uL (150-400); RED BLOOD CELL COUNT 4.50 M/uL (4.52-5.90); WHITE BLOOD CELL COUNT,WBC 6.20 K/uL (3.9-11.3)
[2025-02-07 06:11] LABS: A/G RATIO 0.8 (0.9-1.6); ALANINE AMINOTRANSFERASE,ALT 10.0 IU/L (14-63); ASPARTATE AMNIOTRANSFERASE,AST 13.0 IU/L (15-37); BILIRUBIN TOTAL 0.3 mg/dL (0.2-1.0); BLOOD UREA NITROGEN,BUN 7.0 mg/dL (7.0-18.0); CARBON DIOXIDE,CO2 29.5 mmol/L (21.0-32.0); CHLORIDE,CL 109.0 mmol/L (98-107); CREATININE 0.6 mg/dL (0.8-1.3); EST CRCL DRUG DOSING (CG) 77.16 mL/min; GLUCOSE RANDOM 83.0 mg/dL (74-106); PHOSPHORUS 3.2 mg/dL (2.6-4.7); POTASSIUM,K 3.4 mmol/L (3.5-5.1); PROTEIN TOTAL,TP 5.7 g/dL (6.4-8.2); SODIUM,NA 143.0 mmol/L (136-148)
[2025-02-07 06:26] LABS: ESTIMATED GFR 97.0 mL/min (>60)
[2025-02-07] MEDS: Potassium Chloride 20 MEQ Tab.ER PO ONE (09:10)
[2025-02-07] MEDS: LORazepam 2 MG/ML SDV IV PRN (18:34)
[2025-02-07] MEDS ORDERED: LORazepam 2 MG/ML SDV IVPUSH PRN (21:44)
[2025-02-08] MEDS: Potassium Chloride 20 MEQ Tab.ER PO ONE (09:11)
[2025-02-09 05:07] LABS: PHENYTOIN FREE <0.5 ug/mL (1.0-2.5); PHENYTOIN TOTAL 1.5 ug/mL (10.0-20.0)
[2025-02-09 05:34] LABS: BASOPHILS ABSOLUTE AUTO 0.06 K/uL (0.00-0.20); BASOPHILS PERCENT AUTO 0.7 % (0.0-1.0); EOSINOPHILS ABSOLUTE AUTO 0.32 K/uL (0.00-0.45); EOSINOPHILS PERCENT AUTO 3.9 % (0.0-6.0); IMMATURE GRAN ABSOLUTE AUTO 0.03 K/uL (0.00-0.05); IMMATURE GRAN PERCENT AUTO 0.4 % (0.0-0.4); LYMPHOCYTES ABSOLUTE AUTO 1.62 K/uL (1.00-4.80); LYMPHOCYTES PERCENT AUTO 19.9 % (24.0-44.0); MEAN PLATELET VOLUME 9.9 fL (9.4-12.4); MONOCYTES ABSOLUTE AUTO 0.90 K/uL (0.00-0.80); MONOCYTES PERCENT AUTO 11.1 % (0.0-8.0); NEUTROPHILS ABSOLUTE AUTO 5.20 K/uL (1.80-7.70); NEUTROPHILS PERCENT AUTO 64.0 % (41.0-71.0); NRBC ABSOLUTE 0.00 K/uL (0.00-0.02); NRBC PERCENT 0.0 /100WBC (0.0-0.2); PLATELET COUNT,PLT 176 K/uL (150-400); RED BLOOD CELL COUNT 4.85 M/uL (4.52-5.90); WHITE BLOOD CELL COUNT,WBC 8.13 K/uL (3.9-11.3)
[2025-02-09 06:04] LABS: A/G RATIO 0.8 (0.9-1.6); ALANINE AMINOTRANSFERASE,ALT 16.0 IU/L (14-63); ASPARTATE AMNIOTRANSFERASE,AST 17.0 IU/L (15-37); BILIRUBIN TOTAL 0.2 mg/dL (0.2-1.0); BLOOD UREA NITROGEN,BUN 8.0 mg/dL (7.0-18.0); CARBON DIOXIDE,CO2 28.7 mmol/L (21.0-32.0); CHLORIDE,CL 106.0 mmol/L (98-107); CREATININE 0.7 mg/dL (0.8-1.3); EST CRCL DRUG DOSING (CG) 66.14 mL/min; GLUCOSE RANDOM 81.0 mg/dL (74-106); POTASSIUM,K 4.5 mmol/L (3.5-5.1); PROTEIN TOTAL,TP 6.3 g/dL (6.4-8.2); SODIUM,NA 139.0 mmol/L (136-148)
[2025-02-09 06:05] LABS: ESTIMATED GFR 93.0 mL/min (>60)
[2025-02-09] MEDS: LORazepam 2 MG/ML SDV IVPUSH ONE (15:40)
[2025-02-10 06:08] LABS: BASOPHILS ABSOLUTE AUTO 0.06 K/uL (0.00-0.20); BASOPHILS PERCENT AUTO 1.0 % (0.0-1.0); EOSINOPHILS ABSOLUTE AUTO 0.33 K/uL (0.00-0.45); EOSINOPHILS PERCENT AUTO 5.3 % (0.0-6.0); IMMATURE GRAN ABSOLUTE AUTO 0.03 K/uL (0.00-0.05); IMMATURE GRAN PERCENT AUTO 0.5 % (0.0-0.4); LYMPHOCYTES ABSOLUTE AUTO 1.76 K/uL (1.00-4.80); LYMPHOCYTES PERCENT AUTO 28.3 % (24.0-44.0); MEAN PLATELET VOLUME 9.4 fL (9.4-12.4); MONOCYTES ABSOLUTE AUTO 0.66 K/uL (0.00-0.80); MONOCYTES PERCENT AUTO 10.6 % (0.0-8.0); NEUTROPHILS ABSOLUTE AUTO 3.38 K/uL (1.80-7.70); NEUTROPHILS PERCENT AUTO 54.3 % (41.0-71.0); NRBC ABSOLUTE 0.00 K/uL (0.00-0.02); NRBC PERCENT 0.0 /100WBC (0.0-0.2); PLATELET COUNT,PLT 211 K/uL (150-400); RED BLOOD CELL COUNT 4.87 M/uL (4.52-5.90); WHITE BLOOD CELL COUNT,WBC 6.22 K/uL (3.9-11.3)
[2025-02-10 06:36] LABS: BLOOD UREA NITROGEN,BUN 7.0 mg/dL (7.0-18.0); CARBON DIOXIDE,CO2 31.6 mmol/L (21.0-32.0); CHLORIDE,CL 105.0 mmol/L (98-107); CREATININE 0.7 mg/dL (0.8-1.3); EST CRCL DRUG DOSING (CG) 67.9 mL/min; GLUCOSE RANDOM 83.0 mg/dL (74-106); PHOSPHORUS 3.6 mg/dL (2.6-4.7); POTASSIUM,K 4.8 mmol/L (3.5-5.1); SODIUM,NA 140.0 mmol/L (136-148)
[2025-02-10 06:51] LABS: ESTIMATED GFR 93.0 mL/min (>60)
[2025-02-11 06:16] LABS: BASOPHILS ABSOLUTE AUTO 0.06 K/uL (0.00-0.20); BASOPHILS PERCENT AUTO 1.1 % (0.0-1.0); EOSINOPHILS ABSOLUTE AUTO 0.33 K/uL (0.00-0.45); EOSINOPHILS PERCENT AUTO 6.1 % (0.0-6.0); IMMATURE GRAN ABSOLUTE AUTO 0.02 K/uL (0.00-0.05); IMMATURE GRAN PERCENT AUTO 0.4 % (0.0-0.4); LYMPHOCYTES ABSOLUTE AUTO 1.32 K/uL (1.00-4.80); LYMPHOCYTES PERCENT AUTO 24.2 % (24.0-44.0); MEAN PLATELET VOLUME 9.7 fL (9.4-12.4); MONOCYTES ABSOLUTE AUTO 0.52 K/uL (0.00-0.80); MONOCYTES PERCENT AUTO 9.5 % (0.0-8.0); NEUTROPHILS ABSOLUTE AUTO 3.20 K/uL (1.80-7.70); NEUTROPHILS PERCENT AUTO 58.7 % (41.0-71.0); NRBC ABSOLUTE 0.00 K/uL (0.00-0.02); NRBC PERCENT 0.0 /100WBC (0.0-0.2); PLATELET COUNT,PLT 218 K/uL (150-400); RED BLOOD CELL COUNT 4.57 M/uL (4.52-5.90); WHITE BLOOD CELL COUNT,WBC 5.45 K/uL (3.9-11.3)
[2025-02-11 06:29] LABS: BLOOD UREA NITROGEN,BUN 9.0 mg/dL (7.0-18.0); CARBON DIOXIDE,CO2 30.1 mmol/L (21.0-32.0); CHLORIDE,CL 104.0 mmol/L (98-107); CREATININE 0.7 mg/dL (0.8-1.3); EST CRCL DRUG DOSING (CG) 66.73 mL/min; GLUCOSE RANDOM 92.0 mg/dL (74-106); PHOSPHORUS 3.6 mg/dL (2.6-4.7); POTASSIUM,K 4.0 mmol/L (3.5-5.1); SODIUM,NA 139.0 mmol/L (136-148)
[2025-02-11 06:32] LABS: ESTIMATED GFR 93.0 mL/min (>60)
[2025-02-16] MEDS: Sennosides/Docusate Sodium 50-8.6 MG Tab PO PRN (05:28)
== END 2025-02-18 10:51 | DRG 690 ==
LOC: MW.ED 04:34 → MW.MS 11:28
PROVIDERS: ADMIT Family Medicine; ATTEND Family Medicine
DX: R41.82 Altered mental status, unspecified (principal); D64.9 Anemia, unspecified; R33.9 Retention of urine, unspecified; N39.0 Urinary tract infection, site not specified; F05 Delirium due to known physiological condition; C34.2 Malignant neoplasm of middle lobe, bronchus or lung; C79.82 Secondary malignant neoplasm of genital organs; Z66 Do not resuscitate; N40.1 Benign prostatic hyperplasia with lower urinary tract symptoms; G40.909 Epilepsy, unspecified, not intractable, without status epilepticus; N13.9 Obstructive and reflux uropathy, unspecified; I48.0 Paroxysmal atrial fibrillation; E86.0 Dehydration; I48.91 Unspecified atrial fibrillation; N40.0 Benign prostatic hyperplasia without lower urinary tract symptoms; N13.30 Unspecified hydronephrosis; Z79.899 Other long term (current) drug therapy
CPT/HCPCS: 36415; 51702; 70450; 71045; 71260; 74177; 80053; 80143; 80179; 80185; 80186; 80305; 80307; 81001; 82550; 82607; 82803; 83550; 83605; 83735; 83880; 84484 ×2; 85025; 85610; 87086; 93005; 96360; 99285; A9270 ×2; G0103; J7030; Q9967; 76856; 76856-26; 80048; 84100; 97162-GP; 97164-GP; 97165-GO; 97530-GP; 99223; 99231; 99232; 99233; 99238; 99284; A4216; J0696; J1644; J2060